=== PATIENT | male | born 1945 | race Caucasian/White ===

== ENCOUNTER 2018-05-18 08:24 | Inpatient (IN) ==
[2018-05-18 09:06] LABS: HEMATOCRIT 21.6 % (42.0-52.0); HEMOGLOBIN 6.9 g/dL (14.0-18.0); MCH 33.5 PG (27-31); MCHC 31.9 g/dL (33-37); MCV 104.9 FL (81-99); MPV 10.7 FL (7.4-10.4); RBC 2.06 XMIL (4.7-6.1); RDW 15.1 % (11.5-14.5); WBC 8.48 X1000 (4.8-10.8)
[2018-05-18] MEDS ORDERED: NS 500 ML ONE (10:08)
--- NOTE | 2018-05-18 11:32 | EKG Report ---
Test Performed on : 05/18/2018 11:29:58 AM Test Reason : SOB Blood Pressure : / mmHG Vent. Rate : 047 BPM Atrial Rate : 046 BPM P-R Int : 000 ms QRS Dur : 096 ms QT Int : 558 ms P-R-T Axes : 000 013 208 degrees QTc Int : 493 ms Junctional rhythm. Cannot rule out Anterior infarct , age undetermined Abnormal ECG When compared with ECG of 05-MAR-2018 11:47, (Unconfirmed) Junctional rhythm. has replaced Sinus rhythm. Non-specific change in ST segment in Lateral leads T wave inversion no longer evident in Anterior leads QT has shortened Confirmed by Ashwin DUNLAP, Tre Osuna ([id number]) on 05/20/2018 10:35:22 AM
[2018-05-18] MEDS ORDERED: LASIX IV ONE (11:41)
[2018-05-18] MEDS ORDERED: ZOFRAN IV PRN (11:45)
[2018-05-18] MEDS ORDERED: TYLENOL PO PRN (11:45)
--- NOTE | 2018-05-18 12:35 | HISTORY AND PHYSICAL ---
HISTORY OF PRESENT ILLNESS: This is a 72-year-old, who I think was followed by Dr. Jorge and is now seen by Dr. Rico. Recently he had chronic kidney disease and recently went on dialysis. He complains of shortness of breath that has been progressively getting worse over the last [address] Rico. He had significant anemia and so was sent over here to get some blood, but chest x-ray showed some pleural effusion, pulmonary venous hypertension, increased swelling in his legs and also some significant bradycardia, so plan to admit him also to try and figure out if he has blood-loss anemia as well. PAST MEDICAL HISTORY: 1. Hypertension. 2. Chronic kidney disease. 3. COPD. 4. Peripheral vascular disease. 5. Benign prostatic hypertrophy with lower tract obstruction. PAST SURGICAL HISTORY: 1. Knee replacement. 2. AAA repair. 3. Colon resection. 4. Ostomy and ostomy takedown. 5. Appendectomy. 6. Tonsillectomy. 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 History of previous tobacco use, although stopped about 15 years ago. Occasional use of alcohol. Denies any illicit drugs. FAMILY HISTORY: Mother of congestive heart failure. Father with prostate cancer. REVIEW OF SYSTEMS: General: He feels like he has increased swelling, increased his weight from fluid retention. Denies fever or chills. HEENT: He has not reported any hearing or visual changes. Neck: No neck pain. No adenopathy. Respiratory: Increased work of breathing. Increased dyspnea on exertion. Increased orthopnea. Increased pedal edema. Cardiovascular: No chest pain or tachy palpitation, but I have noticed some bradycardia that looks like sinus bradycardia on the monitor today and the rate getting down in the 40s with blood pressure up in the 160s to 180s systolic. GI and : Complains of constipation. No gross hematuria or dark melanotic stools. Urine: No complaints of frequent urination or dysuria or gross hematuria. Musculoskeletal/Neurologic: No focal complaints. Endocrinologic/Hematologic: No significant history. PHYSICAL EXAMINATION: VITAL SIGNS: Temperature 92.3, pulse 45. Respirations 24, blood pressure 195/75. HEENT: Pupils are equal and round. NECK: His CVP appears to be about 10 cm water pressure. I do not see distended neck veins. No cervical, supraclavicular, axillary adenopathy. LUNGS: Clear anterior lateral with rales in the bases. ABDOMEN: Soft, nondistended, nontender. Positive bowel sounds. EXTREMITIES: She got 3+ pedal edema, ankles to mid hook. No erythema. I do not see any rashes. Weight was 252 pounds. Height 6 feet 0 inches. LAB: White count 8480, hematocrit 21, hemoglobin 6.9, platelet count 274,000. ASSESSMENT AND PLAN: 1. Chronic kidney disease stage 5 and is on dialysis. He appears to have volume overload in the face of hypertension and appears to have some bradycardia. Plan to give him a dose of Lasix now. He had 2 units of packed red blood cells, just 0.5 unit is in at the present time. He was on Lasix 40 mg p.o. daily, but I will give him 120 mg IV now [address] Hernandez is involved. So will need dialysis to help with fluid reduction. 2. Anemia. His hematocrit is 21, hemoglobin 6.9, MCV is 104, so it is not macrocytic. However, we probably need to look and see if there is any sign of blood loss anemia. He does have anemia related to his chronic kidney disease. So, we will check his iron status, check iron studies, B12 and folate and we will check a reticulocyte count. We will check thyroid with T4 TSH B12 and folate. 3. History of chronic obstructive pulmonary disease. He does not seem to have any bronchospasm. He takes Dulera 100/5, two puffs twice a day. I think we can continue him on that. We can also put him on DuoNeb 4 times a day and then q.2 hours p.r.n. He has significant pleural effusion. We will watch that radiographically as well. 4. Hypertension. See if we can get his blood pressure down a little more. He is on hydralazine 25 mg t.i.d. We will go up to 50 mg t.i.d. on his hydralazine and his clonidine is at 0.1 b.i.d. we will go up to 0.2 mg b.i.d. 5. History of peripheral vascular disease. History of abdominal aortic aneurysm repair. 6. History of benign prostatic hypertrophy. Aware. 7. Looking back at his records looking for an echocardiogram or delineation of his left ventricular function, I see an echocardiogram on 09/14/2017. Technically difficult study. Mild concentric LVH. Estimated ejection fraction 55%. Grade 1 left ventricular diastolic dysfunction. Mild left atrial enlargement. Did not see any significant valvular dysfunction. He has moderate calcific aortic stenosis with mild to moderate aortic regurgitation. We will ask Cardiology to evaluate as well. Considering his bradycardia we will check cardiac enzymes, troponin and CPK and we will check a proBNP. cc: Tank Breen MD
[2018-05-18] MEDS: DUONEB (A & A) INH PRN (13:22)
[2018-05-18] MEDS ORDERED: ATIVAN IV ONE (13:51)
[2018-05-18] MEDS: PRILOSEC PO SCH ×2 (14:01→21:31)
[2018-05-18] MEDS: APRESOLINE PO SCH ×2 (14:01→18:15)
--- NOTE | 2018-05-18 14:22 | CARDIOLOGY CONSULTATION ---
DATE: 05/18/2017 REASON FOR CONSULTATION: Cardiology was consulted for bradycardia, pleural effusion. Patient has end-stage renal disease and is severely anemic. Hemoglobin of 6.9, and the patient has undergone 1 unit of blood transfusion and subsequently admitted to ICU. Patient does not complain of chest pain. He says he is short of breath. There are no palpitations. There is no syncope. He has chronic kidney disease undergoing dialysis. He was here for a transfusion. Nephrology has been consulted. From a cardiac standpoint, he has followed up in our office. He has moderate aortic stenosis and last stress test on 09/07/2017 revealed mainly fixed defect with partial reversibility. REVIEW OF SYSTEMS: A 14-point review of system was done. GI System: There is no nausea or vomiting. There is no history of hematemesis or melena. Central Nervous System: There is no focal weakness to suggest CVA, TIA. Genitourinary System: There is no dysuria. Respiratory System: Patient complains of shortness of breath. There is no history of cough, fever, or hemoptysis. PAST MEDICAL HISTORY: 1. End-stage renal disease on dialysis. 2. Hypertension. 3. Peripheral vascular disease. 4. COPD. 5. Benign prostatic hypertrophy. 6. History of moderate aortic stenosis by echocardiogram. 7. Last Cardiolite stress test on 09/07/2017 revealed a moderate severity basal inferior basal lateral fixed defect with partial reversibility. Ejection fraction of 58%. 8. History of megaloblastic anemia. 9. Nonrheumatic moderate aortic stenosis with a mean gradient of 20 mmHg. Aortic valve area of 1.3 square cm. CURRENT MEDICATIONS: 1. Norvasc 5 mg p.o. twice daily has been added during this hospitalization. 2. He is on inhalers. 3. He was on hydralazine 25 mg 3 times a day which has been increased to 50 mg t.i.d. 4. He is on omeprazole. ALLERGIES: He is allergic to meperidine. PHYSICAL EXAMINATION: Vital Signs: Blood pressure was 200/77. Neck: Jugular venous pressure could not be assessed. Heart: First and second heart sounds were heard. There was faint systolic murmur. Ejection systolic murmur. Respiratory System: Bibasilar scattered inspiratory crepitations. Abdomen: Obese, soft, nontender. There was no guarding or rigidity. Bowel sounds were heard. Extremities: Examination of his extremities revealed pedal edema. LABORATORY EXAMINATION: Chemistry is pending, however, his CBC revealed a hemoglobin of 6.9, hematocrit 21, platelet count of 274,000. Electrocardiogram revealed sinus bradycardia. ASSESSMENT AND PLAN: 1. Mr. Milton Delgado is a 72-year-old, gentleman, with a history of moderate aortic stenosis, hypertension, end-stage renal disease on dialysis. He was undergoing blood transfusion, and he became more short of breath, was given 120 mg Lasix and subsequently admitted. His shortness of breath is multifactorial probably related to his severe anemia, and he is going to receive another unit of blood transfusion, and he received 120 mg of Lasix. Nephrology has been consulted. 2. For moderate aortic stenosis, we will get an echocardiogram to reassess cardiac and valvular function. 3. As far as bradycardia is concerned, he was on clonidine. Currently, he is on Norvasc which has been started as a new medication and hydralazine has been increased. We will adjust medications accordingly. Thank you for the consult. We will follow hospital course. cc: Gary Castano MD
[2018-05-18 14:39] LABS: URINE SOURCE CATH
[2018-05-18 14:43] LABS: BILIRUBIN URINE NEGATIVE (NEGATIVE); BLOOD URINE MODERATE (NEGATIVE); COLOR YELLOW; GLUCOSE URINE TRACE mg/dL (NEGATIVE); KETONE URINE NEGATIVE (NEGATIVE); LEUKOCYTES URINE NEGATIVE (NEGATIVE); NITRITE URINE NEGATIVE (NEGATIVE); PH URINE 6.5; PROTEIN URINE 100 mg/dL (NEGATIVE); SP GRAVITY URINE 1.002; TURBIDITY URINE CLEAR (CLEAR); UROBILINOGEN URINE NORMAL (NORMAL)
[2018-05-18 14:44] LABS: UR EPITHELIAL CELLS <10 /HPF (<10); URINE BACTERIA NEGATIVE /HPF; URINE RBC TNTC /HPF (<10); URINE WBC <10 /HPF (<10)
[2018-05-18 15:16] LABS: BASO# 0.01 X1000 (0.0-0.2); BASO% 0.1 % (0.0-0.8); EOS% 3.5 % (0.0-10.0); HEMATOCRIT 24.2 % (42.0-52.0); HEMOGLOBIN 7.8 g/dL (14.0-18.0); IMM GRAN# 0.04 X1000 (0.0-0.04); IMM GRAN% 0.5 % (0.0-0.5); LYMPH# 1.06 X1000 (1.2-3.4); LYMPH% 12.2 % (20.5-51.1); MCH 32.4 PG (27-31); MCHC 32.2 g/dL (33-37); MCV 100.4 FL (81-99); MONO# 0.44 X1000 (0.11-0.59); MONO% 5.1 % (1.7-9.3); MPV 10.9 FL (7.4-10.4); NEUT# 6.84 X1000 (1.4-6.5); NEUT% 78.6 % (42.2-75.2); PLT 250 X1000 (130-400); RBC 2.41 XMIL (4.7-6.1); RDW 16.3 % (11.5-14.5); WBC 8.69 X1000 (4.8-10.8)
[2018-05-18 15:19] LABS: INR 0.97; PROTIME 13.7 Seconds (11.0-16.0)
[2018-05-18 15:21] LABS: PTT 41.4 Seconds (22.3-41.8)
[2018-05-18 15:28] LABS: ALB/GLOB RATIO 0.8; ALBUMIN 2.5 g/dL (3.5-5.0); CALCIUM 7.9 mg/dL (8.8-10.2); CREATININE 6.9 mg/dL (0.7-1.2); POTASSIUM 3.6 mmol/L (3.5-5.1); TOTAL BILIRUBIN 0.26 mg/dL (0.20-1.00); TOTAL PROTEIN 5.7 g/dL (6.3-8.3)
[2018-05-18] MEDS: DUONEB (A & A) INH SCH ×2 (15:53→20:30)
--- NOTE | 2018-05-18 17:34 | Diag Imaging Result Doc PS360 ---
EXAM: CHEST-PORTABLE 05/18/2018 HISTORY: sob TECHNIQUE: AP portable at 1725 COMMENT: There are bilateral pleural effusions more so on the right than the left. The inspiration is not as optimal as on the previous study of 05/17/2018. There may be slightly more pleural fluid on the right. Otherwise there has been no significant change. IMPRESSION: Bilateral pleural effusions. Cardiomegaly. Electronically signed by Pardeep Gaitan 05/18/2018 5:31 PM
--- NOTE | 2018-05-18 17:36 | GASTROENTEROLOGY CONSULTATION ---
DATE: 05/18/2018 HISTORY OF PRESENT ILLNESS: Mr. Delgado is a 72-year-old gentleman with a past medical history of hypertension, COPD, peripheral vascular disease, BPH, anemia of chronic disease and end-stage renal disease, on peritoneal dialysis, as well as a remote history of partial colon resection in the setting of unresectable colon polyp who was admitted today to the ICU after having a blood transfusion with chief complaint of cough and shortness of breath. He reports a long history of anemia, requiring a blood transfusion in September 2017, and progressive shortness of breath over the last several weeks. He denies any GI complaints, including dysphagia, acid reflux, abdominal pain, diarrhea, constipation, rectal bleeding, or black stools. His last colonoscopy was done by Dr. Alberts. It appears that his colonoscopy was done over 10 years ago, given that there are no records in our system available in regard to his procedures. He denies any blood thinner use, including aspirin. He does say that he takes occasional ibuprofen for pain. He does not recall ever having an upper endoscopy. PAST MEDICAL HISTORY: 1. Hypertension. 2. COPD. 3. Peripheral vascular disease. 4. BPH. 5. Anemia of chronic disease. 6. End-stage renal disease. 7. History of colon resection for colon polyp. PAST SURGICAL HISTORY: 1. Knee replacements. 2. Abdominal aortic aneurysm repair. 3. Appendectomy. 4. Tonsillectomy. 5. Colon resection. 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 He has a history of remote tobacco abuse. Admits to occasional alcohol. Denies any illicit drug use. FAMILY HISTORY: Mother of congestive heart failure, father with prostate cancer. REVIEW OF SYSTEMS: General: He reports fatigue and lethargy. Denies fever or chills. HEENT: Denies any visual changes or nasal discharge. Neck: No neck pain or lymphadenopathy. Respiratory: Reports cough that is slightly improving. Increased work of breathing and shortness of breath, particularly on exertion. Cardiovascular: Denies chest pain or palpitations. Abdomen: Denies any abdominal pain, swelling, diarrhea, constipation, or rectal bleeding. : No hematuria. Hematology: Denies easy bruising. Skin: Denies rashes or wounds. PHYSICAL EXAMINATION: Vital Signs: Temperature 98.3, pulse 45, respirations 24 , blood pressure 195/75. GEN: In respiratory distress; uncomfortable; and lethargic. HEENT: Pupils equal and reactive to light. Extraocular motor intact. Moist mucous membranes. Neck: No lymphadenopathy. Lungs: Clear to auscultation bilaterally. No audible wheezing or rhonchi. Abdomen: Peritoneal dialysis catheter noted. Obese, soft , nontender, nondistended. Normoactive bowel sounds. No rebound or guarding. Extremities: Has 1+ pedal edema. No cyanosis. LABS: Comprehensive metabolic panel is pending. White count is 8.4, hemoglobin 6.9 (corrected to 7.8 after blood transfusion), platelets 274,000, MCV 104. Prior labs in April 2018 showed a ferritin of 769, iron of 55, iron saturation of 47, TIBC of 118. In September 2017, he had a folate of 9.2 and a vitamin B12 of 1736. ASSESSMENT/PLAN: Mr. Milton Delgado is a 72-year-old male with a history that is significant for end-stage renal disease, on peritoneal dialysis, anemia of chronic disease, as well as remote history of partial colonic resection, who presents with acute respiratory distress in the setting of pulmonary vascular congestion as well as profound anemia. He denies any GI complaints suggestive of GI etiology of blood loss. He has not seen any blood in his stool. His iron studies from April are consistent with anemia of chronic disease. It is unclear whether he has been receiving Epogen or iron for his anemia at this point. It appears that he is overdue for a surveillance colonoscopy; however, given his current respiratory status, I would like to hold off on any invasive procedures until he improves from a cardiopulmonary standpoint. 1. Anemia: Recommend transfusion. Goal of hemoglobin of 7 to 8 and trending post-transfusion hemoglobin daily. Avoid any anticoagulants or antiplatelet agents if possible 2. Shortness of breath: Suspect this will improve after transfusion and diuresis with Lasix. Cardiology is following as well to assess whether patient's symptoms are cardiac in origin. 3. Chronic obstructive pulmonary disease which is currently being followed by primary team. 4. History of colon polyps: Will determine timing of colonoscopy inpatient versus outpatient procedure pending clinical course. Appreciate this consult. Please call with any questions. Thirty-five minutes was dedicated to this encounter. [facility]
[2018-05-18] MEDS ORDERED: TAZIDIME 2 GM in NS 100 ML IV ONE (18:58)
[2018-05-18] MEDS ORDERED: MISC. PHARMACY COMMUNICATION SCH (19:15)
[2018-05-18] MEDS: PULMICORT INH SCH (19:34)
[2018-05-18] MEDS ORDERED: VANCOMYCIN 2 GM in NS 500 ML IV ONE (20:00)
[2018-05-18] MEDS: LASIX IV SCH (20:32)
[2018-05-18] MEDS: NORVASC PO SCH (21:31)
[2018-05-18] MEDS: NORCO-5 PO PRN (21:31)
[2018-05-18] MEDS ORDERED: XYLOCAINE 1% ONE (21:51)
[2018-05-18] MEDS ORDERED: DECADRON IV ONE (22:33)
[2018-05-18 23:16] LABS: AMYLASE BODY FLUID 34 U/L; GLUCOSE BODY FLUID 149 mg/dL; LDH BODY FLUID 139 U/L; TOTAL PROT BODY FLUID 2.5 g/dL
[2018-05-18 23:21] LABS: BODY FLUID SOURCE PLEURAL FLUID
--- NOTE | 2018-05-18 23:44 | ECHO REPORT ---
ORDER DATE: 05/18/2018 MEASUREMENTS: Septal thickness 1.2, aortic root 3.2, left atrium 3.8. SUMMARY: 1. Fair quality study. 2. Fibrocalcific changes of trileaflet aortic valve demonstrated, with reduced aortic valve leaflet mobility demonstrated. Peak gradient across the aortic valve is 25 mmHg with a mean gradient of 12 mmHg. The calculated aortic valve area by Doppler is 1.5 cm2, suggesting mild to moderate aortic stenosis. There is mild to moderate aortic regurgitation. Mitral, tricuspid, and pulmonic valves are without evidence of structural abnormality, with mild mitral regurgitation, mild tricuspid regurgitation, and trace pulmonic insufficiency. The estimated systolic PA pressure by Doppler is 40 mmHg. The aortic root is normal in size. 3. Normal left ventricular chamber size with mild to moderate concentric left hypertrophy is demonstrated. Estimated left ventricular ejection fraction approximately 45%. No focal wall motion abnormalities evident. Doppler suggests grade 1 left ventricular diastolic dysfunction. Left atrium is mildly enlarged. Right atrium and right ventricle are of normal size with grossly preserved right ventricular systolic function. 4. No pericardial effusion. 5. Appearance of the inferior vena cava suggests normal central venous pressure. CONCLUSIONS: 1. Mild to moderate calcific aortic stenosis with mild to moderate aortic regurgitation. 2. Mild mitral regurgitation. 3. Mild tricuspid regurgitation with mild pulmonary hypertension by Doppler. 4. Mild to moderate concentric left ventricular hypertrophy with estimated left ventricular ejection fraction approximately 45%. 5. Grade 1 left ventricular diastolic dysfunction. 6. Mild left atrial enlargement. cc: MD Nubia Blair CRNP
[2018-05-18 23:45] LABS: SPECIMEN PLEURAL FLUID; WBC BF 219 /cumm
[2018-05-18 23:52] LABS: MONOS 54 %; POLYS 46 %
[2018-05-19] MEDS: DUONEB (A & A) INH SCH ×4 (03:38→19:15)
[2018-05-19] MEDS: DUONEB (A & A) INH PRN (05:40)
[2018-05-19 06:04] LABS: INR 0.96; PROTIME 13.6 Seconds (11.0-16.0)
[2018-05-19 06:05] LABS: BASO# 0.01 X1000 (0.0-0.2); BASO% 0.1 % (0.0-0.8); EOS# 0.01 X1000 (0.0-0.7); EOS% 0.1 % (0.0-10.0); HEMATOCRIT 29.4 % (42.0-52.0); HEMOGLOBIN 9.6 g/dL (14.0-18.0); IMM GRAN# 0.05 X1000 (0.0-0.04); IMM GRAN% 0.4 % (0.0-0.5); LYMPH# 0.35 X1000 (1.2-3.4); LYMPH% 3.1 % (20.5-51.1); MCH 31.4 PG (27-31); MCHC 32.7 g/dL (33-37); MCV 96.1 FL (81-99); MONO# 0.09 X1000 (0.11-0.59); MONO% 0.8 % (1.7-9.3); MPV 10.9 FL (7.4-10.4); NEUT# 10.87 X1000 (1.4-6.5); NEUT% 95.5 % (42.2-75.2); PLT 292 X1000 (130-400); RBC 3.06 XMIL (4.7-6.1); RDW 18.8 % (11.5-14.5); WBC 11.38 X1000 (4.8-10.8)
[2018-05-19 06:06] LABS: PTT 38.7 Seconds (22.3-41.8)
--- NOTE | 2018-05-19 06:33 | Diag Imaging Result Doc PS360 ---
CHEST-PORTABLE - 05/18/2018 INDICATION: md request COMPARISON: 05/18/2018 FINDINGS: There has been decrease in the right basilar pleural effusion. Stable patchy atelectasis in the lung bases. No new or focal infiltrates. Stable cardiomegaly and pulmonary vascular congestion. IMPRESSION: Decrease in the right basilar pleural effusion. Electronically signed by John Lawson 05/19/2018 6:31 AM
--- NOTE | 2018-05-19 06:51 | OPERATIVE NOTE ---
PROCEDURE DATE: 05/18/2018 PROCEDURE PERFORMED: Thoracentesis from the right hemithorax. CLINICAL INDICATIONS: Large right-sided pleural effusion with dyspnea at rest. DESCRIPTION OF PROCEDURE: After informed consent was obtained and the risk of infection, bleeding and pneumothorax were discussed, the patient was placed with his legs dangling over the bed and propped on the bedside table with the assistance of the nursing staff. The right hemithorax was percussed and auscultated. Three rib spaces below the initial dullness of percussion, a niyah was made with my finger nail. The site was cleaned with ChloraPrep and draped in the usual sterile fashion. Local anesthesia was achieved with 1% lidocaine, and pleural fluid was identified. A plastic catheter was introduced into the right hemithorax, and 1500 mL of clear yellow fluid were aspirated without difficulty. Pleural fluid will be sent for chemistries, cultures, and cytology. Postprocedure chest x-ray reveals slight decrease in pleural effusion on the right side. The patient tolerated the procedure without difficulty. cc: Vinicius Bah MD [facility]
[2018-05-19 07:02] LABS: ALB/GLOB RATIO 0.6; ALBUMIN 2.5 g/dL (3.5-5.0); CALCIUM 8.3 mg/dL (8.8-10.2); CREATININE 6.5 mg/dL (0.7-1.2); MAGNESIUM 2.1 mg/dL (1.5-2.7); POTASSIUM 3.9 mmol/L (3.5-5.1); TOTAL BILIRUBIN 0.36 mg/dL (0.20-1.00); TOTAL PROTEIN 6.5 g/dL (6.3-8.3)
--- NOTE | 2018-05-19 07:14 | PULMONOLOGY CONSULTATION ---
DATE: 05/18/2018 REQUESTING PHYSICIAN: Dr. Quintin Hernandez. REASON FOR CONSULTATION: Shortness of breath and pleural effusions. HISTORY OF PRESENT ILLNESS: Milton Delgado is a 72-year-old white male who was recently of referred to my clinic in April for persistent and intractable cough. After his history was obtained, concern for swallowing difficulty/possible esophageal dysfunction was entertained and patient was scheduled for a barium swallow and follow up in my clinic. The patient reports he has had some difficulty with weakness and being unsteady and he fail approximately 10 days ago and cracked 3 ribs. He has had increased shortness of breath and has had difficulty with orthostasis. Dr. Hernandez has adjusted his dry weight. The patient was seen by Dr. Rico with increasing shortness of breath and was found to be significantly anemic. The patient was admitted to the hospital for additional evaluation and treatment. The patient was significantly short of breath and was admitted to the ICU. Initial temperature was 92.3 degrees and he was mildly bradycardic. He has received blood. He remains hyperthermic but with gentle rewarming his temperature has increased to 93.6 degrees. He is having significant shortness of breath at rest. PAST MEDICAL HISTORY: 1. Persistent intractable cough as per above. Pulmonary function studies performed in October revealed mild restriction but no significant obstruction. He did have significant reduction in diffusion capacity. 2. End-stage renal disease, on peritoneal dialysis with prior episode of methicillin sensitive Staph aureus. Spontaneous bacterial peritonitis. 3. Peripheral vascular disease. 4. BPH. 5. Status post AAA repair. 6. Status post colon resection with ostomy placement and takedown. 7. Status post appendectomy. 8. Status post knee replacement. SOCIAL HISTORY: Prior tobacco use. Occasional alcohol use. 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 FAMILY HISTORY: Notable for prostate cancer and congestive heart failure. REVIEW OF SYSTEMS: Notable for generalized weakness, the feeling of being hot despite being hypothermic, shortness of breath, generalized weakness. PHYSICAL EXAMINATION: General: Reveals a well-developed, well-nourished, white male who is significantly breathless. He is also complaining about the Polk catheter. Vital signs: Blood pressure 149/66, heart rate 55, respiratory rate 20, oxygen saturation 97% on 4 L per nasal cannula. Temperature 93.6 degrees. HEENT: Pupils are equal and reactive. Oropharynx is clear. Neck: Supple. Chest: Reveals diminished breath sounds right greater than left base. Cardiac: Decreased rate. Regular rhythm. Abdomen: Soft and obese. Extremities: Reveal 2+ peripheral edema. LABORATORIES: White blood count 8.69, hemoglobin 7.8, platelet count 250,000. Sodium 143, potassium 3.6, chloride 98, bicarbonate 30, BUN 65, creatinine 6.9, proBNP 13913 , albumin 2.5, lactate 0.5, TSH 3.66. Free T4 ordered. Cortisol 10.5. Chest x-ray reveals cardiomegaly and a large effusion right greater than left side. IMPRESSION: A 72 year old with end-stage renal disease who presents with significant hypothermia, bilateral pleural effusions, dyspnea at rest, generalized weakness, bradycardia. Etiology for the hypothermia is not clear. He has not been exposed to the elements and has been hypothermic in this hospital all day long. Despite being hypothermic, he feels that he is hot. Etiology for his hypothermia could be related to infection, drugs, or undiagnosed neurologic event. He has had a trauma with rib fractures. He is anemic and will need thoracentesis both for a diagnostic and therapeutic process to make sure he does not have an empyema and to ensure that he has does not have a hemothorax. I will give him a dose of dexamethasone because his Cortisol is relatively low given his severe hypothermia and the Cortrosyn Stim should be performed. I will allow the hospitalist to perform this. However, it would seem unlikely that he would be severely adrenal insufficient with his current hypertension. If he does not sock turner to be septic, then it could be that his hypothermia is due to either his clonidine or his hydralazine. I will leave this for Dr. Hernandez to review. RECOMMENDATIONS: 1. Urgent thoracentesis for diagnostic and therapeutic indications given his hypothermia, severe dyspnea at rest and recent chest trauma with rib fractures. 2. Single dose of dexamethasone as outlined above. 3. Continue rewarming as tolerated. 4. Broad-spectrum antibiotics pending results of blood cultures and thoracentesis evaluation. 5. Evaluation for hypothermia as per above. 6. Continue ICU monitor for dyspnea and bradycardia cc: Vinicius Bah MD [facility]
[2018-05-19 07:19] LABS: RETIC% 1.75 % (0.8-2.1); RETIC-HE 30.1 PG (28.2-36.6)
[2018-05-19] MEDS: LASIX IV SCH ×2 (07:31→18:20)
[2018-05-19 07:35] LABS: IRON SATURATION 71 %; TIBC 178 ug/dL; TOTAL IRON 127 ug/dL (53-167); UNBOUND IRON 51 ug/dL (112-346)
--- NOTE | 2018-05-19 07:47 | Diag Imaging Result Doc PS360 ---
CHEST-PORTABLE - 05/19/2018 INDICATION: abnormal exam COMPARISON: 05/18/2018 FINDINGS: Stable bibasilar pleural effusions. Stable cardiomegaly and pulmonary vascular congestion. No infiltrates or edema. IMPRESSION: Small pleural effusions. No significant change from prior. Electronically signed by John Lawson 05/19/2018 7:44 AM
[2018-05-19 08:05] LABS: PHOSPHORUS 6.7 mg/dL (2.7-4.5)
[2018-05-19 08:11] LABS: FREE T4 0.98 ng/dL (0.93-1.70)
--- NOTE | 2018-05-19 08:13 | EKG Report ---
Test Performed on : 05/19/2018 07:54:03 AM Test Reason : bradycardia Blood Pressure : / mmHG Vent. Rate : 070 BPM Atrial Rate : 070 BPM P-R Int : 166 ms QRS Dur : 088 ms QT Int : 484 ms P-R-T Axes : 051 023 124 degrees QTc Int : 522 ms Normal sinus rhythm. Nonspecific ST and T wave abnormality Abnormal ECG When compared with ECG of 18-MAY-2018 11:29, (Unconfirmed) Sinus rhythm. has replaced Junctional rhythm. Vent. rate has increased BY 23 BPM Confirmed by Ashwin DUNLAP, Tre Osuna ([id number]) on 05/20/2018 10:51:26 AM
[2018-05-19] MEDS: NORCO-5 PO PRN ×3 (08:20→20:42)
[2018-05-19] MEDS: NORVASC PO SCH ×2 (08:20→20:42)
[2018-05-19] MEDS: APRESOLINE PO SCH ×3 (08:22→16:10)
[2018-05-19] MEDS: PRILOSEC PO SCH ×2 (08:22→20:42)
[2018-05-19] MEDS: PULMICORT INH SCH ×2 (09:23→19:15)
[2018-05-19 09:48] LABS: BODY FLUID SOURCE PERI DIAL FLUID
[2018-05-19 09:49] LABS: WBC BF 8 /cumm
--- NOTE | 2018-05-19 16:31 | PROGRESS NOTE ---
DATE: 05/19/2018 SUBJECTIVE: Mr. Delgado was admitted on 05/18/2018. Patient of Dr. Rico. Followed by Dr. Jorge. Before that, had seen Dr. Rico. He has chronic kidney disease. Recently went on dialysis. He is complaining shortness of breath. It has been progressively getting worse last couple weeks. Saw Dr. Rico. Significant anemia. Sent here to get some blood but chest x-ray shows some pleural effusion, pulmonary venous hypertension, increased swelling in his legs, some recent significant bradycardia so was admitted. PAST MEDICAL HISTORY: Again, hypertension, chronic kidney disease, COPD, peripheral vascular disease, benign prostatic hypertrophy. PAST SURGICAL HISTORY: Knee replacement, AAA repair, colon resection, ostomy and ostomy takedown, appendectomy, and tonsillectomy. So, admitted with chronic kidney disease. It looks like some fluid overload with anemia. He feels much better today. I would like to move to the floor. OBJECTIVE: Vital Signs: His temperature was 98.4 degrees, pulse 75, respirations 20, blood pressure 148/61. HEENT: Pupils are equal and round. Lungs: Clear in all lung cabrera. Cardiovascular: Regular rate without murmur or S3. Urine output was almost 6 L. GI has seen. Has significant end-stage renal disease, peritoneal dialysis, anemia of chronic disease as well as remote history of partial colonic resection and has pulmonary vascular congestion, profound anemia. Denies any gastrointestinal complaints suggestive of gastrointestinal etiology of blood loss. Not seen any blood loss in his stool. His iron studies from April consistent with anemia chronic disease. Unclear whether he has been receiving Epogen or iron for this anemia. The goal of hemoglobin is 7 to 8 trending post transfusion hemoglobin daily. Avoid any anticoagulants or antiplatelet agents if possible. Suspect shortness of breath and little volume overload hopefully improve after transfusion and diuresis. Pulmonary has seen. Considering thoracentesis for diagnostic and therapeutic indications given his hypothermia, severe dyspnea at rest, recent chest trauma with rib fractures. Give him single dose of dexamethasone. Continue broad-spectrum antibiotics. Evaluation for hypothermia. Dr. Bah did a thoracentesis for right hemothorax, large right-sided pleural effusion, and he drained off 1500 mL of clear yellow fluid, aspirated without difficulty. This was sent for chemistries and studies. Chest x-ray, small pleural effusion. No significant change from prior. This was done at 6 o'clock and before the paracentesis. Check another chest x-ray in the morning. Check electrolytes. I think he can go to the floor. cc: Tank Breen MD
--- NOTE | 2018-05-19 16:35 | GASTROENTEROLOGY PROGRESS NOTE ---
DATE: 05/19/2018 SUBJECTIVE: Yesterday, the patient underwent right-sided thoracentesis with 1500 mL removed. He also received one unit of packed red blood cells. This morning, he is more awake and alert and pleasant. Reports improvement in shortness of breath. His , at the bedside , reports patient having a colonoscopy over 15 years ago when he had his surgery for an unresectable polyp. He denies any abdominal pain, rectal bleeding, nausea, vomiting, or reflux. OBJECTIVE: Vital signs: Temperature 97.8, pulse 82, respiratory rate 22, blood pressure 147/71 and O2 saturation 96% on room air. His last hemoglobin drawn in the evening was 9.6 from 7.8. Platelets are normal. Iron studies from yesterday show a ferritin of 957, iron 127, TIBC 178, iron saturation 71, and vitamin B12 of 1910 with a folate of 18.4, and INR 0.96. Chest x-ray showed bilateral small pleural effusions this morning. CURRENT MEDICATIONS: DuoNeb, amlodipine, budesonide, dexamethasone, furosemide , hydralazine, Vicodin, lorazepam, omeprazole 40 mg once daily, Tazidime, and vancomycin. PHYSICAL EXAMINATION: General: The patient is pleasant and conversant. He is well-nourished and well-developed in no acute distress. HEENT: Extraocular motor intact. Mucous membranes are moist. Neck: No obvious JVD. No lymphadenopathy. Cardiac: Regular rate and rhythm. No murmurs. Pulmonary: Bilateral bibasilar crackles. Otherwise clear. Abdomen: Peritoneal dialysis catheter noted. Obese. Soft and nontender. Nondistended. Normoactive bowel sounds. No rebound or guarding. No obvious ascites. Extremities: One plus lower extremity edema. No cyanosis or clubbing. Neurological: Nonfocal. ASSESSMENT AND PLAN: Mr. Milton Delgado is a 72-year-old male with a history of end stage renal disease on peritoneal dialysis, anemia of chronic disease and remote history of partial resection for an unresectable colonic polyp over 15 years ago. He presented with acute on chronic anemia and respiratory distress in the setting of pulmonary vascular congestion , pleural effusion and profound anemia. His respiratory status has improved significantly since his thoracentesis and receiving Lasix as well as blood transfusions. After discussion with the patient and family at bedside, it appears that the patient has not been on any Epogen for his anemia of chronic disease. His iron studies from April as well as currently are consistent with anemia of chronic disease. It does not point to iron deficiency as the etiology, and the patient denies any overt GI bleeding. He is, indeed, overdue for surveillance colonoscopy which can be postponed as an outpatient given his current clinical status. # Anemia of chronic disease: We will continue to trend his hemoglobin. Currently, his hemoglobin is at goal. Should his hemoglobin drop below 8, I would recommend a repeat transfusion with one unit of packed red blood cells. I would continue to hold anticoagulants and antiplatelet agents and recommend TEDs and SCDs for DVT prophylaxis. Consider initiating Epogen for his anemia of chronic disease. Will defer to nephrology. #Acute respiratory distress. Pulmonary symptoms have improved with Lasix and thoracentesis. Nephrology and pulmonary are following to manage his fluid status. #ESRD: Continue peritoneal dialysis as per Renal #History of colonic polyps. Will defer colonoscopy to outpatient unless the patient develops overt bleeding or downtrending hemoglobin. We will continue to follow the patient while he is in house. Please call with any questions or concerns. [facility] MED[facility] CENTERAzeb
[2018-05-20] MEDS: NORCO-5 PO PRN ×3 (03:25→20:02)
--- NOTE | 2018-05-20 03:26 | NEPHROLOGY PROGRESS NOTE ---
DATE: 05/19/2018 SUBJECTIVE: He is feeling much better today. Shortness of breath is improved. He remains weak, but has not been out of bed. No nausea or vomiting. OBJECTIVE: Vital Signs: Blood pressure 167/90, heart rate 69, respiration 18, afebrile. General: No acute distress. Skin: Warm and dry. Heent: Conjunctivae are pink. Pupils are equal. Neck: Veins are not distended. Heart: Regular. No gallops. Lungs: Equal. No crackles or wheezes. Abdomen: Soft, distended, nontender. Bowel sounds present. Extremities: No edema, clubbing or cyanosis. IMPRESSION: Chronic kidney disease 5D. We will return to his normal daily peritoneal dialysis prescription. Electrolytes and acid-base are in target. Anemia is significantly improved with transfusion. Iron stores do not necessitate more intravenous iron. Bradycardia is resolved. Hypothermia has resolved. cc: Quintin Hernandez MD
[2018-05-20] MEDS: DUONEB (A & A) INH SCH ×4 (03:35→20:18)
[2018-05-20] MEDS: LASIX IV SCH ×2 (06:02→20:03)
[2018-05-20] MEDS: NORVASC PO SCH ×2 (08:19→22:29)
[2018-05-20] MEDS: APRESOLINE PO SCH ×3 (08:19→22:29)
--- NOTE | 2018-05-20 08:19 | Diag Imaging Result Doc PS360 ---
EXAM: CHEST-PORTABLE INDICATION: pleural effusion TECHNIQUE: 2 views COMPARISON: 05/19/2018 FINDINGS: Bilateral pleural effusions are again noted. The effusion on the right appears to have increased in size and now appears to be moderate to large in size. Pulmonary venous congestion is approximately stable. Cardiac silhouette is stable. IMPRESSION: Increase in size of the right pleural effusion. Essentially stable chest, otherwise. Electronically signed by Cedric Maravilla 05/20/2018 8:17 AM
[2018-05-20] MEDS: PRILOSEC PO SCH ×2 (08:20→22:29)
[2018-05-20 08:42] LABS: ALB/GLOB RATIO 0.6; ALBUMIN 2.1 g/dL (3.5-5.0); CALCIUM 7.5 mg/dL (8.8-10.2); CREATININE 7.1 mg/dL (0.7-1.2); POTASSIUM 3.5 mmol/L (3.5-5.1); TOTAL BILIRUBIN 0.22 mg/dL (0.20-1.00); TOTAL PROTEIN 5.9 g/dL (6.3-8.3)
[2018-05-20] MEDS: PULMICORT INH SCH ×2 (09:29→20:18)
[2018-05-20 09:44] LABS: BASO# 0.02 X1000 (0.0-0.2); BASO% 0.2 % (0.0-0.8); EOS# 0.09 X1000 (0.0-0.7); EOS% 0.8 % (0.0-10.0); HEMATOCRIT 27.2 % (42.0-52.0); HEMOGLOBIN 8.7 g/dL (14.0-18.0); IMM GRAN# 0.14 X1000 (0.0-0.04); IMM GRAN% 1.3 % (0.0-0.5); LYMPH# 1.22 X1000 (1.2-3.4); LYMPH% 11.5 % (20.5-51.1); MCH 31.2 PG (27-31); MCV 97.5 FL (81-99); MONO# 0.84 X1000 (0.11-0.59); MONO% 7.9 % (1.7-9.3); MPV 10.6 FL (7.4-10.4); NEUT# 8.28 X1000 (1.4-6.5); NEUT% 78.3 % (42.2-75.2); PLT 292 X1000 (130-400); RBC 2.79 XMIL (4.7-6.1); RDW 19.1 % (11.5-14.5); WBC 10.59 X1000 (4.8-10.8)
--- NOTE | 2018-05-20 10:22 | PROGRESS NOTE ---
DATE: 05/20/2018 This is a 72-year-old patient who states he did not get much sleep last night. He does not feel real good this morning. They were able to dialyze through peritoneal dialysis, quite a bit of fluid off yesterday. He is breathing comfortably. His right side, his rib is still very painful. He has a persistent cough. He had apparently pulmonary function tests done in October. Showed mild restriction. No significant obstruction. He had paracentesis done yesterday per Dr. Bah and 1500 mL of clear yellow fluid was aspirated without difficulty. PHYSICAL EXAMINATION: VITAL SIGNS: Temp 97.6 degrees, pulse 70, respirations 23, blood pressure 159/71. HEENT: Pupils are equal. NECK: No distended neck veins. LUNGS: Clear anterolateral with decreased breath sounds both bases. CARDIOVASCULAR: Regular rhythm and rate without murmur or S3. ABDOMEN: Soft. SKIN: Warm and dry. Urine output was 1400 mL. Chest x-ray done on 05/19/2018 showed increased size of right pleural effusion, bilateral pleural effusions noted. ASSESSMENT AND PLAN: 1. Chronic kidney disease stage 5D. Continue his normal daily peritoneal dialysis. Electrolytes acid base appear appropriate. Anemia significantly improved following transfusion. 2. Anemia of chronic disease, remote history of partial resection of an unresectable colon polyp over 15 years ago. He presented with acute on chronic anemia. 3. Pulmonary effusions, pulmonary vascular congestion, pleural effusions, effects of profound anemia. 4. Fractured ribs, tender. A lot of pain on the right side. He seems to be doing better. He came in with hypothermia and concern about possible sepsis. Pleural fluid was tapped. Results still await the gram stain of the pleural fluid. A few rare epithelial cells. No bacteria seen. No yeast seen. Pleural fluid: There is no growth on cultures as of yet. Occasional white blood cells. cc: Tank Breen MD
--- NOTE | 2018-05-20 10:43 | PROGRESS NOTE ---
DATE: 05/20/2018 SUBJECTIVE: Mr. Delgado does not feel real good today. They did get some fluid off on peritoneal dialysis yesterday. His rib is still hurting pretty bad. He did not get much sleep last night. He states he would feel better if he could get a little rest. OBJECTIVE: Temperature is 97.6, pulse 70, respirations 23, blood pressure 159/71. Pupils are equal and round. Lungs are clear in all lung cabrera. Cardiovascular: Regular rate and rhythm without murmur or S3. Abdomen is soft. Skin is warm and dry. Urine output is 1400 mL. DIAGNOSTIC DATA: Chest x-ray with increased size of right pleural effusion, essentially stable otherwise, that was from yesterday. He has bilateral pleural effusions, effusion on the right at this x-ray had increased. cc: Tank Breen MD
--- NOTE | 2018-05-20 15:42 | NEPHROLOGY PROGRESS NOTE ---
DATE: 05/20/2018 SUBJECTIVE: He is doing okay. He did not sleep well and he has not been out of bed. No shortness of breath, nausea, vomiting, or dizziness. OBJECTIVE: Vital Signs: Blood pressure 121/96, heart rate 73, respirations 16, and temperature 97.6. General: No acute distress. Skin: Warm and dry. HEENT: Conjunctivae are pink. Neck: Neck veins are not distended. Heart: Regular. No gallops. Lungs: Equal. No crackles. Abdomen: Soft and nontender. Bowel sounds are present. Extremities: No edema, clubbing, or cyanosis. IMPRESSION: 1. Chronic kidney disease 5D. He will continue his routine peritoneal dialysis prescription. 2. Anemia. He received 1 unit of packed red blood cells and his hemoglobin improved to 9.6. It was 8.7 today. Observe. He may need another transfusion. Iron storage levels were acceptable. B12 and folate were in target. Stool Hemoccult was positive. He is being followed by Gastroenterology. cc: Quintin Hernandez MD
[2018-05-20] MEDS ORDERED: VENTOLIN HFA INH PRN (17:46)
--- NOTE | 2018-05-20 20:44 | PROGRESS NOTE ---
DATE: 05/20/2018 SUBJECTIVE: Patient resting in bed he is feeling better. He denies any nausea , vomiting, vomiting blood, passing blood in the stools. OBJECTIVE: Temperature 97.6 degrees, pulse of 70, respiratory 16, blood pressure 143/59 saturating 94% on 4 L.General: Moderately nourished lying in bed in no acute distress. HEENT: Pale conjunctivae. No icterus. Neck: Supple. Abdomen: Obese, soft, nontender, nondistended. Extremities: No cyanosis, clubbing. Neuro: Alert, awake, oriented. LABS: His hemoglobin and hematocrit is 8.7, 27.2, white count of 10.9, platelet count of 292,000, sodium 140, potassium 3.5, chloride 98, bicarb 27, anion gap 15, BUN of 61, creatinine of 7.1, glucose 90, magnesium 2.0, total bilirubin is 0.22, AST 17, ALT 13, alkaline phos 92, total protein 5.9, albumin of 2.1. Stool for occult blood was positive. IMPRESSION AND PLAN: 1. Anemia, I will continue to watch her hemoglobin and hematocrit and transfuse as needed. This is likely secondary to anemia of chronic disease from chronic kidney disease and occult gastrointestinal bleeding. 2. Positive Hemoccult. We will schedule for EGD and colonoscopy likely as an outpatient once he recovers from acute illness. 3. Chronic kidney disease on peritoneal dialysis per Dr. Hernandez. 4. Pulmonary vascular congestion pleural effusion and pulmonary effusion status post thoracocentesis, this is being followed primary care team. 5. Fractured ribs on the right side. He is currently recovering. 6. Gastrointestinal prophylaxis with PPIs. Bowel regimen. Will start him on Rissa-Colace once daily. 7. Will start him on iron C and multivitamin for anemia. 8. The above plans with the patient and family, all questions answered.Please call us with any further questions. cc: MD Dr. Jacky Pryor
[2018-05-20] MEDS: ICAR-C PO SCH (22:29)
[2018-05-20] MEDS: PERICOLACE PO SCH (22:29)
[2018-05-20] MEDS: COREG PO SCH (22:29)
[2018-05-20] MEDS: REMERON PO SCH (22:29)
[2018-05-20] MEDS: KLONOPIN PO SCH (22:29)
[2018-05-20] MEDS: CATAPRES PO SCH (22:30)
[2018-05-20] MEDS: ATROVENT NEB INH SCH (23:41)
[2018-05-21] MEDS: DUONEB (A & A) INH SCH ×4 (03:36→22:38)
[2018-05-21] MEDS: NORCO-5 PO PRN ×3 (04:17→22:02)
[2018-05-21] MEDS: ATROVENT NEB INH SCH ×4 (05:02→23:13)
[2018-05-21] MEDS: PULMICORT INH SCH ×2 (08:01→22:38)
[2018-05-21] MEDS: BREO ELLIPTA 200/25 MCG INH INH SCH (08:01)
[2018-05-21] MEDS: LASIX IV SCH ×2 (10:35→22:02)
[2018-05-21] MEDS: NEPHRO-VITE PO SCH (10:35)
[2018-05-21] MEDS: COREG PO SCH ×2 (10:35→22:02)
[2018-05-21] MEDS: PRILOSEC PO SCH ×2 (10:35→22:02)
[2018-05-21] MEDS: ICAR-C PO SCH ×2 (10:36→22:01)
[2018-05-21] MEDS: NORVASC PO SCH ×2 (10:36→22:03)
[2018-05-21] MEDS: CENTRUM SILVER PO SCH (10:36)
[2018-05-21] MEDS: APRESOLINE PO SCH ×3 (10:36→22:02)
[2018-05-21] MEDS: CATAPRES PO SCH ×2 (10:36→22:02)
[2018-05-21] MEDS: SINGULAIR PO SCH (10:37)
[2018-05-21] MEDS: NEXIUM PO SCH (10:37)
[2018-05-21] MEDS: KLONOPIN PO SCH ×2 (10:37→22:01)
--- NOTE | 2018-05-21 10:45 | GASTROENTEROLOGY PROGRESS NOTE ---
DATE: 05/21/2018 SUBJECTIVE: Patient is resting in bed. The patient is feeling better. He complains of constipation. He has not had a good bowel movement for the last 5 days. OBJECTIVE: Vital signs: Temperature 97, pulse rate of 69, respiratory rate 18, blood pressure 147/53, saturating 98% on room air. General appearance: Obese, lying in bed, in no acute distress. HEENT: Pale conjunctivae. No icterus. Neck: Supple. Abdomen: Obese. Peritoneal dialysis catheter noted in the right side of the abdomen. Mild distention noted. No rebound or guarding. Extremities: No cyanosis, clubbing. Neurologic: Alert, awake, oriented x3. LABS: His blood glucose is 131. Pleural fluid did have white cells of 219 and 46% polymorphonuclear white cells. Stool for occult blood was positive on 05/19. IMPRESSION AND PLAN: 1. Anemia. Will continue to watch hemoglobin and hematocrit. Will start him on iron C b.i.d. and multivitamin 1 once daily. 2. Constipation. We will start him on MiraLAX twice daily and Dulcolax b.i.d. 3. Positive Hemoccult. He will need EGD and colonoscopy as an outpatient once he recovers from the acute illness. 4. Chronic kidney disease. On peritoneal dialysis per Dr. Hernandez. 5. Pulmonary vascular congestion. It is improving. 6. Fall causing fracture on the right side, right-sided ribs. He is recovering. 7. Gastrointestinal prophylaxis. PPIs. 8. Transfuse as needed. 9. Obesity. Patient was counseled to lose weight. 10. The above plan was discussed with the patient and all questions were answered. Please call us with any further questions. cc: MD Dr. Jacky Pryor
[2018-05-21] MEDS: MIRALAX PO SCH ×2 (10:50→22:03)
[2018-05-21] MEDS ORDERED: DULCOLAX PR PRN (14:29)
--- NOTE | 2018-05-21 14:51 | PROGRESS NOTE ---
DATE: 05/21/2018 SUBJECTIVE: Mr. Delgado is doing better, but he is constipated and can't seem to have a bowel movement. So, otherwise, he seems to be doing better on all fronts. He is still very tender in his ribs. OBJECTIVE: General: Today: He is awake, alert and oriented x 3. Vital Signs: Temp 97.0, pulse 67, respirations 18, blood pressure 147/53. HEENT: Pupils are equal and round. Lungs: Clear in all lung cabrera. Cardiovascular: Regular rhythm and rate without murmur or S3. Abdomen: Soft. Skin: Warm and dry. Genitourinary: Urine output 3900 mL. ASSESSMENT AND PLAN: 1. Anemia. Continue to watch hemoglobin and hematocrit. He is on iron C b.i.d., multivitamin. 2. Constipation. Started on MiraLAX and Dulcolax. I will give him some milk of magnesia and a Dulcolax suppository today. 3. Positive Hemoccult. Will need an EGD and colonoscopy as an outpatient once he recovers from acute illness. 4. Chronic kidney disease on peritoneal dialysis per Dr. Hernandez. 5. Pulmonary vascular congestion, improving. Volume overload improving. 6. Fall causing a fracture on the right side, right-sided ribs, and he is still in a good deal of pain and this will be slow recovery. 7. Continues gastrointestinal prophylaxis, on proton pump inhibitor. 8. Transfuse as needed. 9. Obesity. Continue to in house counsel and lose weight. 10. Chronic kidney disease stage 5D. Continue routine peritoneal dialysis. 11. Anemia. He received 1 unit of packed red blood cells. Hemoglobin improved to 9.6. It was 8.7, under Dr. Hernandez direction. 12. Review of his orders: I will add some milk of magnesia and Dulcolax q. day p.r.n.. cc: Tank Breen MD
[2018-05-21] MEDS: DULCOLAX PR SCH ×2 (15:59→22:03)
[2018-05-21] MEDS: MILK OF MAGNESIA PO SCH (16:00)
[2018-05-21] MEDS: LACTULOSE PO SCH ×2 (17:59→22:07)
[2018-05-21] MEDS: REMERON PO SCH (22:03)
[2018-05-21] MEDS: PERICOLACE PO SCH (22:03)
[2018-05-22] MEDS: DUONEB (A & A) INH SCH ×4 (05:11→20:42)
[2018-05-22] MEDS: ATROVENT NEB INH SCH ×4 (05:12→20:40)
--- NOTE | 2018-05-22 07:24 | Diag Imaging Result Doc PS360 ---
EXAM: CHEST-1 VIEW 05/22/2018 HISTORY: SOB TECHNIQUE: AP portable at 0606 COMMENT: There is a right pleural effusion which may be partially loculated and a smaller left pleural effusion. There is cardiomegaly and increased pulmonary vascularity. There is compressive atelectasis in the right lung particularly in the lower lobe. Compared to 05/19/2018 the right pleural effusion is larger. IMPRESSION: Worsened right pleural effusion. Electronically signed by Pardeep Gaitan 05/22/2018 7:21 AM
[2018-05-22] MEDS: PULMICORT INH SCH ×2 (07:44→20:42)
[2018-05-22] MEDS: BREO ELLIPTA 200/25 MCG INH INH SCH (07:44)
[2018-05-22] MEDS: SINGULAIR PO SCH (09:16)
[2018-05-22] MEDS: PRILOSEC PO SCH ×2 (09:17→21:16)
[2018-05-22] MEDS: ICAR-C PO SCH ×2 (09:17→21:16)
[2018-05-22] MEDS: CENTRUM SILVER PO SCH (09:18)
[2018-05-22] MEDS: LACTULOSE PO SCH ×2 (09:18→21:17)
[2018-05-22] MEDS: NEPHRO-VITE PO SCH (09:18)
[2018-05-22] MEDS: MIRALAX PO SCH ×2 (09:21→21:15)
[2018-05-22] MEDS: MILK OF MAGNESIA PO SCH (09:21)
[2018-05-22] MEDS: DULCOLAX PR SCH ×2 (09:22→21:17)
--- NOTE | 2018-05-22 09:53 | GASTROENTEROLOGY PROGRESS NOTE ---
DATE: 05/22/2018 SUBJECTIVE: Resting in bed. He is feeling better. He is likely getting discharged today. OBJECTIVE: Vital signs: Temperature 98.6 degrees, pulse rate 64, respiratory rate 15, blood pressure of 97/47, saturating 92% on room air. General Appearance: Obese, lying in bed, in no acute distress. HEENT: Pale conjunctivae. No icterus. Neck: Supple. Abdomen: Obese, soft, nontender, nondistended. Dialysis catheter in place. Extremities: No cyanosis or clubbing. Neurologic: Alert, awake, oriented. LABORATORIES: His glucose of 131 yesterday. Occult blood was positive x2 IMAGING: Chest x-ray done today showed a worsening right pleural effusion and a small left pleural effusion. IMPRESSION AND PLAN: 1. Anemia. Continue to watch hematocrit and transfuse as needed. He will continue Iron C b.i.d. and multivitamin. We discussed the possibility of doing EGD and colonoscopy. The patient is getting discharged today. We will perform EGD and colonoscopy as an outpatient. If he plans to stay in the hospital, then we can do inpatient EGD as well. 2. Positive Hemoccult on two occasions. We will perform EGD and colonoscopy as mentioned above. 3. Constipation. He having constipation he has done MiraLAX twice daily and Dulcolax twice daily. 4. Chronic kidney disease, on peritoneal dialysis per Dr. Hernandez. 5. Pulmonary venous congestion and pleural effusion, per the primary care team. 6. Recent fall causing injury to the right-sided ribs. He is currently recovering GI with PPIs. 7. Obesity. Continue to try to lose weight. 8. The patient will call our office to schedule an appointment one week after discharge. The above plans discussed with the patient and family and all questions answered. cc: MD Azam Pryor MD
[2018-05-22] MEDS: COREG PO SCH ×2 (10:39→21:16)
[2018-05-22] MEDS: CATAPRES PO SCH ×2 (10:41→21:16)
[2018-05-22] MEDS: APRESOLINE PO SCH ×3 (10:42→21:16)
[2018-05-22] MEDS: LASIX IV SCH ×2 (10:44→21:15)
[2018-05-22] MEDS: KLONOPIN PO SCH ×2 (10:45→21:16)
[2018-05-22] MEDS: NORVASC PO SCH (10:45)
--- NOTE | 2018-05-22 13:02 | NEPHROLOGY PROGRESS NOTE ---
DATE: 05/22/2018 SUBJECTIVE: Mr. Delgado is resting quietly in bed. Head of the bed is elevated. He states that he is feeling much better. States that he has been out of bed to go to the bathroom. OBJECTIVE: His most recent vital signs temperature 98.6 degrees, blood pressure 97/47, heart rate 59, respirations 18. He is on room air. Last recorded saturation is 99%. He has had 0 recorded in, he has had 2661 out with 200 mL void. The other 2.461 per dialysis. LABORATORIES: Sodium is 140, potassium 3.5, chloride 98, CO2 27, BUN 61, creatinine 7.1, glucose 92. Last recorded on the with a hemoglobin of 8.7. PHYSICAL EXAMINATION: General: This is a 72-year-old white male resting quietly in bed. Head of the bed is elevated. He is in no acute distress. Skin: Warm and dry. HEENT: Normocephalic, atraumatic. Conjunctiva is pale pink. ERIC. Mucous membranes dry. Neck: Supple. Trachea midline. No evidence of JVD. Cardiovascular: Regular rate and rhythm. He is without murmur or gallop. Lungs: Clear to auscultation bilaterally, equal excursion on O2 with his breathing treatment. Abdomen: Soft, nontender, positive bowel sounds. PD catheter remains intact. He has just been disconnected with residual PD fluid intact. Extremities: Have no edema. No clubbing or cyanosis. Neurological: Alert and oriented x3. ASSESSMENT AND PLAN: 1. Chronic kidney disease stage 5D. The patient has been receiving his routine prescription for peritoneal dialysis at night. He has been taken off this a.m. He tolerated this well. 2. Electrolytes and acid-base balance. These have been stable. 3. Anemia. The patient has received 2 units of packed red blood cells during his stay. He has also been given IV iron. It is noted that patient has positive Hemoccult. This is being followed by Gastroenterology and primary care. I would to thank you for allowing us to follow with this patient. Dictated by RASHMI Brandon for Quintin Hernandez MD Face to face encounter, data reviewed, discussed with Susie Cruz on 05/22/18. I agree with the above assessment and plan of care. cc: RASHMI Brandon MD [facility]
--- NOTE | 2018-05-22 17:44 | PROGRESS NOTE ---
DATE: 05/22/2018 SUBJECTIVE: Mr. Delgado says he does not feel very good today at all and still pretty weak and family concerned about him going home. Blood pressure has been running a little low so may need to back down on some of his medications. OBJECTIVE: Vital Signs: Blood pressure anywhere from 97 to 137 over 38 to 78. Lungs: Clear anterior lateral. drawing box tender in the right lower ribs anterior. Cardiovascular: Regular rhythm rate without murmur or S3. Abdomen: Soft. Skin: Warm and dry. Urine output was 3700 mL. ASSESSMENT AND PLAN: 1. Chronic kidney disease, stage 5. The patient has been receiving routine prescription for peritoneal dialysis and seems to be doing better. Volume status seems better. His electrolytes and acid-base balance have been stable. 2. Anemia. He has received 2 units of packed red blood cells during his stay and was given some IV iron. 3. Positive Hemoccult on 2 occasions. Plan to perform an EGD and colonoscopy and I think that is planned as an outpatient. 4. Constipation, which is improved. He is on MiraLAX and Dulcolax. 5. Pulmonary venous congestion and effusion which I think is improved. 6. Recent fall causing right-sided rib pain. He has had a right pleural effusion which is tapped. There is some reaccumulation radiographically. 7. Obesity. Encouraged to lose weight. 8. The patient feels weak and puny and we have had to hold some of his blood pressure medications today so maybe see if we can back down on some of his medications. I will start with stopping the Norvasc and just see how we do off of Norvasc. Continue physical therapy. Hopefully can go home in the morning. cc: Tank Breen MD
[2018-05-22] MEDS: NEXIUM PO SCH (18:31)
[2018-05-22] MEDS: PERICOLACE PO SCH (21:16)
[2018-05-22] MEDS: REMERON PO SCH (21:16)
[2018-05-22] MEDS: NORCO-5 PO PRN (21:25)
[2018-05-23] MEDS: ATROVENT NEB INH SCH ×3 (06:23→23:16)
[2018-05-23] MEDS: DUONEB (A & A) INH SCH ×4 (06:23→20:57)
[2018-05-23] MEDS: NORCO-5 PO PRN ×2 (07:43→23:51)
[2018-05-23] MEDS: BREO ELLIPTA 200/25 MCG INH INH SCH (07:52)
[2018-05-23] MEDS: PULMICORT INH SCH ×2 (07:52→20:57)
[2018-05-23] MEDS: KLONOPIN PO SCH ×2 (08:05→23:54)
[2018-05-23] MEDS: SINGULAIR PO SCH (08:06)
[2018-05-23] MEDS: ICAR-C PO SCH ×2 (08:06→23:54)
[2018-05-23] MEDS: CENTRUM SILVER PO SCH (08:06)
[2018-05-23] MEDS: PRILOSEC PO SCH ×2 (08:06→23:54)
[2018-05-23] MEDS: COREG PO SCH ×2 (08:07→23:55)
[2018-05-23 08:11] LABS: HEMATOCRIT 29.8 % (42.0-52.0); HEMOGLOBIN 9.4 g/dL (14.0-18.0); MCHC 31.5 g/dL (33-37); MCV 101.4 FL (81-99); MPV 11.2 FL (7.4-10.4); RBC 2.94 XMIL (4.7-6.1); RDW 18.3 % (11.5-14.5); WBC 13.23 X1000 (4.8-10.8)
[2018-05-23 08:27] LABS: ALBUMIN 2.3 g/dL (3.5-5.0); CALCIUM 8.5 mg/dL (8.8-10.2); CREATININE 7.3 mg/dL (0.7-1.2); PHOSPHORUS 6.5 mg/dL (2.7-4.5); POTASSIUM 3.7 mmol/L (3.5-5.1)
[2018-05-23] MEDS: APRESOLINE PO SCH (09:38)
[2018-05-23] MEDS: NEPHRO-VITE PO SCH (09:57)
--- NOTE | 2018-05-23 10:54 | Diag Imaging Result Doc PS360 ---
EXAM: CT THORAX W/O CONTRAST 05/23/2018 HISTORY: pleural effusion TECHNIQUE: This exam was performed using automated exposure control, adjustment of mA or kV according to patient size, and/or use of iterative reconstruction technique. COMMENT: The current examination is compared with the previous study of 02/11/2011. There are bilateral pleural effusions, slightly more so on the right than the left. This may be partially loculated. Neither effusion was present at the time the previous study. There is considerable compressive atelectasis of both lower lobes particularly the right lower lobe. There is some degree of hypodensity of the blood pool in the aorta which may be indicative of anemia. There is no evidence of significant adenopathy. There are extensive coronary calcifications. There is osteoporosis and has been previous kyphoplasty at T12. IMPRESSION: Bilateral pleural effusions with compressive atelectasis. The possibility of underlying lower lobe pneumonia on both sides, particularly the right lower lobe cannot be excluded. Electronically signed by Pardeep Gaitan 05/23/2018 10:52 AM
[2018-05-23] MEDS ORDERED: ZYVOX 600 MG/D5W 600 MG/300 ML IVPB IV ONE (11:53)
[2018-05-23] MEDS ORDERED: MAXIPIME 1 GM in NS 50 ML IV ONE (11:53)
--- NOTE | 2018-05-23 12:26 | GASTROENTEROLOGY PROGRESS NOTE ---
DATE: 05/23/2018 SUBJECTIVE: The patient has some mild shortness of breath as well as pleuritic chest pain. No chest pain. No abdominal pain, nausea, vomiting, fevers. Tolerating p.o. Bowel movements present without any rectal bleeding. OBJECTIVE: Vital Signs: Temperature 97.5 degrees, heart rate 94, respiratory rate 16, blood pressure 134/69, 96% on room air. General: Awake, alert, oriented, in no acute distress. HEENT: Anicteric. Moist mucous membranes. Extraocular motor intact. Neck: No JVD. No lymphadenopathy. Chest: Regular rate and rhythm. No murmurs, rubs, or gallops. Lungs: Decreased breath sounds on the right base. Otherwise coarse breath sounds. No wheezing or crackles. Abdomen: Obese. Peritoneal dialysis catheter noted. Soft, nontender. Normoactive bowel sounds. No rebound or guarding. Extremities: Lower extremities, no clubbing, cyanosis, edema. Neurologic: Nonfocal. LABS: White count of 13.2, hemoglobin 9.4, MCV of 101, platelets of 281,000. Sodium 141, potassium 3.7, chloride 96, bicarb 31, BUN of 56, creatinine of 7.3, glucose 94. ASSESSMENT AND PLAN: Mr. Delgado is a 72-year-old gentleman with end-stage renal disease, on peritoneal dialysis, history of anemia of chronic disease, who presented with hypoxic respiratory distress and acute on chronic anemia, found to have a large pleural effusion, status post diagnostic and therapeutic thoracentesis as well as blood transfusion. His Hemoccult have been positive x2, although patient is not currently having any overt bleeding. This is to be expected in a patient with acute illness in the ICU. The patient would require outpatient EGD and colonoscopy to evaluate for a luminal source of bleeding. Most likely his anemia is multifactorial in the setting of anemia of chronic disease and occult blood loss. Given his respiratory status and his acute illness, we recommend outpatient colonoscopy at this time, as well as EGD. This was communicated with patient who agrees with plan. 1. Acute on chronic anemia. Trend hemoglobin. Currently, hemoglobin is stable at 9.4 from 8.4. No transfusion requirement needed at this time. Continue PPI for GI prophylaxis p.o. once daily. 2. Constipation. The patient is currently having bowel movements. Continue bowel regimen. 3. End-stage renal disease, on peritoneal dialysis per Nephrology. 4. Pleural effusion. Followed by Pulmonary team. Status post thoracentesis. Currently saturating well on room air. 5. Obesity. We will continue to encourage patient to diet, exercise, weight loss. 6. Leukocytosis. White count of 13.2 today, which is new. This is of unclear etiology. Vital signs are stable. Recommend continuing to monitor for any infection. We will follow with you. Please call with any questions or concerns.
[2018-05-23] MEDS: LACTULOSE PO SCH ×3 (13:52→23:53)
[2018-05-23] MEDS: MIRALAX PO SCH ×2 (13:52→23:53)
[2018-05-23] MEDS: DULCOLAX PR SCH ×2 (13:54→23:59)
[2018-05-23] MEDS: MILK OF MAGNESIA PO SCH (13:55)
--- NOTE | 2018-05-23 19:19 | PROGRESS NOTE ---
DATE: 05/23/2018 SUBJECTIVE: The patient is resting comfortably in bed. He does complain of some weakness. He denies having any fever, chills or cough. OBJECTIVE: Vital Signs: Temperature 97.2, blood pressure 122/48, heart rate 57, respirations 20, O2 sats 96% on 2 L nasal cannula. Urine output 200 mL. General: This is an elderly male lying in bed in no acute distress. Heart: S1, S2 normal. Regular rate and rhythm. Lungs: Equal air entry bilaterally. Diminished breath sounds at the bases. Abdomen: Positive bowel sounds. Soft, nontender, nondistended. Extremities: No edema, no cyanosis. Neurologic: The patient is alert and oriented x 3. LABS: White blood cell count 13, hemoglobin 9.4, hematocrit 29, platelets 281,000. Sodium 141, potassium 3.7, chloride 96, CO2 31, BUN 56, creatinine 7.3, glucose 94, albumin 2.3. CT of the chest shows bilateral pleural effusions with atelectasis. The possibility of underlying lower lobe pneumonia cannot be excluded. ASSESSMENT AND PLAN: 1. Possible pneumonia. The patient's white blood cell count is elevated at 13,[address] of the chest indicates possible pneumonia in the lower lobe. We will check a procalcitonin level. We will also give the patient a dose of cefepime and Zyvox today. 2. Status post right thoracentesis secondary to a large right-sided pleural effusion. The patient continues to have a small pleural effusion on the right. We will continue to monitor this closely. The patient is on diuretic therapy. 3. End-stage renal disease. The patient is on peritoneal dialysis. Management as per the washer and crusher tender. 4. Hypertension. Stable. We will continue on Coreg. We will discontinue the hydralazine and clonidine at this time. 5. Constipation. Improved. Continue with scheduled laxative therapy as directed by GI. 6. Anxiety disorder. Continue on Klonopin. 7. COPD. Stable. Continue with bronchodilator therapy. 8. GERD. Continue on Prilosec. 9. Disposition. Will continue with physical therapy. The patient will be discharged home once medically stable. cc: Barbara Broussard MD
--- NOTE | 2018-05-23 19:51 | NEPHROLOGY PROGRESS NOTE ---
DATE: 05/23/2018 TIME SEEN: 0845 SUBJECTIVE: Mr. Delgado sitting up on the side of the bed. States that he is cold today but he is feeling well. He has been to the bathroom and has attempted to sit on the side of the bed to eat his meals. OBJECTIVE: His most recent vital signs temperature 97.3 degrees, blood pressure 122/43, heart rate 62, respirations 20, he is on room air. Last recorded saturation 95%, he has had 500 in, 1414 out per his PD. LABS: Sodium is 141, potassium 3.7, chloride 96, CO2 31, BUN 56, creatinine 7.3 , glucose is 94, patient has an anion gap of 14, his calcium is 8.5, phosphorus 6.5, albumin 2.3. White count 13.23, hemoglobin 9.4, hematocrit 29.8, platelet count is 281,000. PHYSICAL EXAM: General: This is a 72-year-old white male appears chronically ill though no acute distress. Skin is warm and dry. HEENT: Normocephalic, atraumatic. Conjunctiva is pale pink. He has ERIC. Mucous membranes are dry. Neck: Supple. Trachea midline. No evidence of JVD in the upright position. Cardiovascular: Regular rate and rhythm, he is without murmur or gallop. Lungs: Clear to auscultation bilateral, equal excursion though he does have a coarse breath sounds that clears with an occasional cough, he is on room air today. Abdomen : Soft, nontender. Positive bowel sounds. PD catheter remains intact without redness or drainage. He has just been disconnected from PD catheter for his cycler overnight with residual PD fluid intact. Extremities: Have trace pretibial edema. No clubbing or cyanosis. Neurological: Alert and oriented x3. ASSESSMENT AND PLAN: 1. Chronic kidney disease stage 5D. The patient has just been taken off his cycler during the night for his peritoneal dialysis treatment. He does have some residual fluid present, no indications for further intervention. 2. Electrolytes and acid-base balance. These are stable. 3. Anemia. This has been stable. 4. Pleural effusions. Chest x-ray is currently pending this a.m. to be followed by the primary care team. We may change his dialysis solution if needed tonight on his cycler. Like to thank you for allowing us to follow with this patient. Dictated by RASHMI Brandon for Quintin Hernandez MD Face to face encounter, data reviewed, discussed with Becki Cruz on 05/23/18. I agree with the above assessment and plan of care. cc: RASHMI Brandon MD [facility]
[2018-05-23] MEDS: LASIX PO SCH (23:54)
[2018-05-23] MEDS: PERICOLACE PO SCH (23:55)
--- NOTE | 2018-05-24 03:27 | PULMONOLOGY PROGRESS NOTE ---
DATE: 05/23/2018 SUBJECTIVE: The patient reports less shortness of breath. He reports generalized fatigue. OBJECTIVE: Vital Signs: Blood pressure 122/48, heart rate 57, respiratory rate 20, oxygen saturation 96% on room air. He has been essentially normothermic over the last 48 hours. HEENT: Pupils are equal and reactive. Oropharynx is clear. Neck: Supple. Chest: Reveals decreased breath sounds in both lung bases. Cardiac: S1-S2. Abdomen: Obese and soft. Extremities: Trace edema. LABORATORIES: CT scan of the thorax is reviewed. He has bilateral pleural effusions, with some compressive atelectasis. No definite pneumonias. White blood count 13.23, hemoglobin 9.4, platelet count 281,000. Sodium 141, potassium 3.7, chloride 96, bicarbonate 31, BUN 56, creatinine 7.3. From his pleural fluid, pH was 8.0, white blood count 219. Glucose 149, protein 2.5. Cultures from pleural fluid and peritoneal fluid revealed no growth. IMPRESSION: A 72 year old with rib fractures, bilateral pleural effusions, dyspnea, end-stage renal disease, mild leukocytosis, who presented with hypothermia. His hypothermia has resolved. The pleural effusions appear to be transudative in character. RECOMMENDATION: 1. Recommend decreasing dry weight/fluid removal from peritoneal dialysis as tolerated. 2. Continue bronchial hygiene. 3. Await cytology report, but do not suspect malignancy. cc: Vinicius Bah MD
[2018-05-24] MEDS: ATROVENT NEB INH SCH ×2 (03:52→10:49)
[2018-05-24] MEDS: DUONEB (A & A) INH SCH ×2 (03:52→07:59)
[2018-05-24] MEDS: PULMICORT INH SCH (07:59)
[2018-05-24] MEDS: BREO ELLIPTA 200/25 MCG INH INH SCH (07:59)
[2018-05-24 08:18] LABS: ALBUMIN 2.4 g/dL (3.5-5.0); CALCIUM 8.3 mg/dL (8.8-10.2); CREATININE 7.5 mg/dL (0.7-1.2); PHOSPHORUS 6.8 mg/dL (2.7-4.5); POTASSIUM 3.5 mmol/L (3.5-5.1)
[2018-05-24] MEDS: NEPHRO-VITE PO SCH (08:58)
[2018-05-24] MEDS: SINGULAIR PO SCH (08:58)
[2018-05-24] MEDS: ICAR-C PO SCH (08:58)
[2018-05-24] MEDS: CENTRUM SILVER PO SCH (08:59)
[2018-05-24] MEDS: COREG PO SCH (08:59)
[2018-05-24] MEDS: PRILOSEC PO SCH (08:59)
[2018-05-24] MEDS: LASIX PO SCH (09:00)
--- NOTE | 2018-05-24 09:03 | Diag Imaging Result Doc PS360 ---
EXAM: CHEST-PORTABLE HISTORY: pneumonia TECHNIQUE: Portable chest single view COMPARISON: 05/22/2018 FINDINGS: The lungs are slightly better aerated on the current exam. Slight decrease in size of the right-sided pleural effusion. Basilar atelectasis and/or infiltrates persist. Vascular distention is less pronounced. IMPRESSION: Mild interval improvement. Electronically signed by Monster Foley 05/24/2018 9:00 AM
[2018-05-24] MEDS: MIRALAX PO SCH (09:04)
[2018-05-24] MEDS: DULCOLAX PR SCH (09:04)
[2018-05-24] MEDS: LACTULOSE PO SCH (09:04)
[2018-05-24] MEDS: MILK OF MAGNESIA PO SCH (09:10)
[2018-05-24 09:24] LABS: HEMATOCRIT 29.5 % (42.0-52.0); HEMOGLOBIN 9.2 g/dL (14.0-18.0); MCH 31.6 PG (27-31); MCHC 31.2 g/dL (33-37); MCV 101.4 FL (81-99); MPV 11.1 FL (7.4-10.4); RBC 2.91 XMIL (4.7-6.1); RDW 17.8 % (11.5-14.5); WBC 12.39 X1000 (4.8-10.8)
--- NOTE | 2018-05-24 09:55 | NEPHROLOGY PROGRESS NOTE ---
DATE: 05/24/2018 TIME SEEN: 0810. SUBJECTIVE: Mr. Delgado is resting quietly in bed and states that he is cold today. He has no complaints. He states his breathing has improved. OBJECTIVE: Vital Signs: Temperature 98.2, blood pressure 146/55, heart rate 64. Respirations 18. He is on room air. Last recorded saturation 95%. He has had 400 in. He has had 200 out with noted 2 L off on peritoneal dialysis. LABORATORY DATA: Sodium 140, potassium 3.5, chloride 95, CO2 of 29. BUN 58, creatinine 7.5, glucose 93. Anion gap is 16, calcium 8.3, phosphorus 6.8, albumin 2.4. Previous hemoglobin 9.4. PHYSICAL EXAMINATION: General: This is a 72-year-old white male resting quietly in bed. No acute distress. Appears chronically ill. Skin: Warm and dry. HEENT: Normocephalic, atraumatic. Conjunctivae pale pink he has ERIC. Mucous membranes dry. Neck: Supple. Trachea midline. No JVD. Cardiovascular: Regular rate and rhythm. He is without murmur or gallop. His lungs are clear to auscultation bilaterally. Equal excursion though he has had some coarse breath sounds that slightly clears with cough. He is on room air. Abdomen is soft, nontender. Positive bowel sounds. PD catheter remains intact without redness or drainage. Genitourinary: Not inspected. Patient has minimal void with dialysis assistance. Extremities have trace pretibial edema. No clubbing or cyanosis. Neurologic: He is alert and oriented x3. ASSESSMENT AND PLAN: 1. Chronic kidney disease, stage 5D. The patient remains on peritoneal dialysis. He uses the cycler at night. He was taken off this a.m. for 2 L. We will plan for further treatment this evening if he remains in the hospital. 2. Electrolytes and acid-base balance. These are stable. 3. Anemia. This has remained stable, though hemoglobin is at 9.4. 4. Pleural effusions. Patient was placed on a mixed bag of 2.5 and 4.5 dialysis. No indications for further intervention. I would like to thank you for allowing us to follow with this patient. Dictated by RASHMI Brandon for Quintin Hernandez MD Face to face encounter, data reviewed, discussed with Susie Cruz on 05/24/18. I agree with the above assessment and plan of care. cc: RASHMI Brandon MD [facility]
[2018-05-24] MEDS: KLONOPIN PO SCH (10:38)
--- NOTE | 2018-05-24 11:01 | GASTROENTEROLOGY PROGRESS NOTE ---
DATE: 05/24/2018 SUBJECTIVE: No acute overnight events. Afebrile. Patient denies any nausea, vomiting, fevers. Shortness of breath has improved significantly and denies any abdominal complaints. Having bowel movements without any blood in stool. Tolerating p.o. diet. OBJECTIVE: Vital Signs: Temperature 98.2, heart rate is 68, respiratory rate of 16, and O2 saturation of 92% on room air. Blood pressure 142/49. Generally: Patient is awake, alert, conversant, pleasant. Neck: No lymphadenopathy. HEENT: Anicteric. Moist mucous membranes. Cardiac: Regular rate and rhythm. No murmurs. Lungs: Decreased breath sounds at bases, otherwise clear. No wheezing. Abdomen: Obese. Peritoneal catheter noted. Normoactive bowel sounds. Nontender. No obvious ascites. Extremities: Lower extremities, no clubbing, cyanosis, edema. LABS: No labs from today. Hemoglobin yesterday was 9.2 in the evening from 9.4 on May 22. ASSESSMENT AND PLAN: Mr. Delgado is a 72-year-old gentleman with end-stage renal disease, on peritoneal dialysis, anemia of chronic disease, who was admitted with hypoxic respiratory distress as well as acute on chronic anemia in the setting of large pleural effusion. He is status post diagnostic and therapeutic thoracentesis as well as blood transfusion. He has not demonstrated any overt GI bleeding during his hospitalization. He has not required any further transfusion since admission. His respiratory status has improved significantly with supportive care and removal of pleural fluid. At this time, we will recommend outpatient diagnostic EGD and colonoscopy once patient continues to improve from his recent illness. 1. Acute on chronic anemia. Outpatient EGD and colonoscopy. Continue once daily proton pump inhibitor p.o. for gastrointestinal prophylaxis. 2. End-stage renal disease on peritoneal dialysis as per Nephrology. 3. Constipation. Continue bowel regimen as needed. 4. Pleural effusion followed by pulmonary team saturating well on room air. 5. Obesity, smoking. Work on diet, exercise and weight loss as outpatient. 6. The patient from a GI standpoint is stable and ready for discharge. Will defer discharge recommendations per primary team. Please call with any questions or concerns.
[2018-05-24 13:07] VITALS: BP 144/57
--- NOTE | 2018-05-29 06:42 | DISCHARGE SUMMARY ---
ADMISSION DATE: 05/18/2018 DISCHARGE DATE: 05/24/2018 PATIENT'S PRIMARY CARE PHYSICIAN: Dr. Rico. FINAL DISCHARGE DIAGNOSES: 1. Status post right thoracentesis secondary to a large right-sided pleural effusion. 2. Fluid volume overload. 3. End-stage renal disease on peritoneal dialysis. 4. Hypertension. 5. Constipation. 6. Anxiety disorder. 7. Chronic obstructive pulmonary disease. 8. Gastroesophageal reflux disease. 9. Severe protein calorie malnutrition. CONSULTATIONS: 1. Nephrology consultation. 2. Pulmonary consultation. 3. GI consultation. 4. Cardiology consultation. IMAGIN. Echocardiogram which revealed an ejection fraction of 45% with grade 1 ventricular diastolic dysfunction. Mild pulmonary hypertension. Moderate aortic stenosis. 2. CT of the chest which revealed bilateral pleural effusions with compressive atelectasis. PROCEDURES: Thoracentesis at which time 1.5 L of pleural fluid was removed. HOSPITAL COURSE: Mr. Delgado is a 72-year-old male with chronic diastolic CHF, end-stage renal disease on peritoneal dialysis, hypertension, and COPD, who presented to the ER with a chief complaint of increasing shortness of breath. On admission, a chest x-ray was done that revealed bilateral pleural effusions with a large one noted to be on the right. The patient was admitted to the hospitalist service and Cardiology, Pulmonary, and Nephrology were consulted. The patient underwent an echocardiogram that revealed an ejection fraction of 45%, grade 1 diastolic dysfunction, and mild pulmonary hypertension. The audio visual secretary performed a bedside thoracentesis at which time 1.5 L of pleural fluid was removed from the right side. The patient immediately had improvement in his respiratory status. The patient was also maintained on his peritoneal dialysis prescription throughout the hospitalization. Slowly, the patient's volume status improved. The patient was also challenged with high- dose Lasix at a dosage of 200 mg IV every 12 hours. The patient also requested home health services, so [employer] [facility] arranged that for the patient. The patient continued to improve clinically, and was ultimately cleared for discharge home on 05/24/2018. DISCHARGE MEDICATIONS: 1. Icar C one tab oral twice a day. 2. Lasix 200 mg p.o. twice a day. 3. Mometasone 2 puffs inhaled twice a day. 4. ProAir 2 puffs inhaled every 4 hours p.r.n. 5. [place] 10/325 one tab oral every 4 hours p.r.n. for pain. 6. Nexium 40 mg p.o. daily. 7. Breo Ellipta 1 puff inhaled daily. 8. Renavite 0.8 mg p.o. daily. 9. Atrovent 0.5 mg inhaled every 6 hours. 10. Remeron 30 mg p.o. at bedtime. 11. Coreg 12.5 mg p.o. twice a day. 12. Singular 10 mg p.o. daily. 13. Klonopin 0.5 mg p.o. twice a day. DISCHARGE DIET: Low-sodium diet. ACTIVITY: As tolerated. FOLLOWUP INSTRUCTIONS: The patient will need to follow up with Dr. Hernandez as scheduled by his clinic. cc: Barbara Broussard MD
== END 2018-05-24 13:57 | disposition home health service (06) | DRG 291 ==
LOC: ICU 08:24 → INF 08:24 → OBSVTOIN 11:40 → SUATTDRO 11:40 → 3N 05-20 12:47
PROVIDERS: ATTEND Internal Medicine
CPT/HCPCS: 36415; 36430; 71010; 71020; 71045; 71046; 71250; 80053; 80069; 81001; 82150; 82270; 82533; 82550; 82607; 82728; 82746; 82945; 82948; 83540; 83550; 83605; 83615; 83735; 83880; 83986; 84100; 84145; 84157; 84425; 84439; 84443; 84484; 85025; 85027; 85045; 85610; 85730; 86850; 86900; 86901; 86920; 87015; 87040; 87070; 87102; 87116; 87147; 87205; 87206; 88112; 88305; 88341; 88342; 88343; 89050; 89051; 93005; 93010; 93306; 94640; 94761; 94799; 97110; 97162; 97530; A9270; G0461; G0462; J0692; J0713; J1100; J1940; J2020; J2060; J3370; J7040; P9016; XXXXX

== ENCOUNTER 2018-05-29 20:42 | Inpatient (IN) ==
[2018-05-29 22:46] LABS: BASO# 0.02 X1000 (0.0-0.2); BASO% 0.2 % (0.0-0.8); EOS# 0.88 X1000 (0.0-0.7); EOS% 6.8 % (0.0-10.0); HEMATOCRIT 29.6 % (42.0-52.0); HEMOGLOBIN 9.2 g/dL (14.0-18.0); IMM GRAN# 0.06 X1000 (0.0-0.04); IMM GRAN% 0.5 % (0.0-0.5); LYMPH# 0.84 X1000 (1.2-3.4); LYMPH% 6.5 % (20.5-51.1); MCH 31.7 PG (27-31); MCHC 31.1 g/dL (33-37); MCV 102.1 FL (81-99); MONO# 1.17 X1000 (0.11-0.59); MPV 10.9 FL (7.4-10.4); NEUT# 9.96 X1000 (1.4-6.5); PLT 279 X1000 (130-400); RDW 17.5 % (11.5-14.5); WBC 12.93 X1000 (4.8-10.8)
[2018-05-29 23:01] LABS: CALCIUM 9.1 mg/dL (8.8-10.2); CREATININE 8.6 mg/dL (0.7-1.2); POTASSIUM 4.4 mmol/L (3.5-5.1)
[2018-05-30 00:06] LABS: URINE SOURCE CLEAN CATCH
[2018-05-30 00:27] LABS: BILIRUBIN URINE NEGATIVE (NEGATIVE); BLOOD URINE NEGATIVE (NEGATIVE); COLOR YELLOW; GLUCOSE URINE NEGATIVE (NEGATIVE); KETONE URINE NEGATIVE (NEGATIVE); LEUKOCYTES URINE NEGATIVE (NEGATIVE); NITRITE URINE NEGATIVE (NEGATIVE); PH URINE 5.5; PROTEIN URINE 200 mg/dL (NEGATIVE); TURBIDITY URINE CLEAR (CLEAR); UROBILINOGEN URINE NORMAL (NORMAL)
[2018-05-30 00:28] LABS: UR EPITHELIAL CELLS <10 /HPF (<10); URINE BACTERIA NEGATIVE /HPF; URINE CASTS NONE SEEN; URINE CRYSTALS NONE SEEN; URINE RBC <10 /HPF (<10); URINE SMALL ROUND CELLS NONE SEEN; URINE WBC <10 /HPF (<10); URINE YEAST PRESENT
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
[2018-05-30 01:37] LABS: INR 0.93; PROTIME 13.3 Seconds (11.0-16.0)
[2018-05-30 01:38] LABS: PTT 35.1 Seconds (22.3-41.8)
[2018-05-30 02:56] LABS: MAGNESIUM 3.1 mg/dL (1.5-2.7)
[2018-05-30] MEDS: MAXIPIME 1 GM in NS 50 ML IV SCH (03:25)
[2018-05-30] MEDS ORDERED: ZOFRAN IV PRN (03:39)
[2018-05-30] MEDS: ZYVOX 600 MG/D5W 600 MG/300 ML IVPB IV SCH ×2 (04:20→13:42)
--- NOTE | 2018-05-30 06:14 | Diag Imaging Result Doc PS360 ---
CHEST-PORTABLE - 05/29/2018 INDICATION: WEAKNESS; R/O ACUTE CARDIOPULMOARNY PROCESS COMPARISON: 05/24/2018 FINDINGS: Lung volumes are improved. There is a stable small right basilar pleural effusion. There is probably a trace left pleural effusion. No infiltrates or edema. Heart size and pulmonary vascularity is top normal. IMPRESSION: Improved lung volumes. Stable small pleural effusions. Electronically signed by John Lawson 05/30/2018 6:12 AM
[2018-05-30] MEDS ORDERED: DULERA 100 MCG/5 MCG INHALER INH SCH (07:30)
--- NOTE | 2018-05-30 07:46 | EKG Report ---
Test Performed on : 05/29/2018 8:55:58 PM Test Reason : weakness Blood Pressure : / mmHG Vent. Rate : 056 BPM Atrial Rate : 056 BPM P-R Int : 162 ms QRS Dur : 086 ms QT Int : 476 ms P-R-T Axes : 051 003 205 degrees QTc Int : [address] & T wave abnormality, consider inferolateral ischemia Abnormal ECG When compared with ECG of 19-MAY-2018 07:54, T wave inversion now evident in Anterior leads QT has shortened Unconfirmed Result
[2018-05-30 08:15] LABS: BASO# 0.03 X1000 (0.0-0.2); BASO% 0.3 % (0.0-0.8); EOS% 6.4 % (0.0-10.0); HEMATOCRIT 26.6 % (42.0-52.0); HEMOGLOBIN 8.3 g/dL (14.0-18.0); IMM GRAN# 0.04 X1000 (0.0-0.04); IMM GRAN% 0.4 % (0.0-0.5); LYMPH# 1.31 X1000 (1.2-3.4); MCHC 31.2 g/dL (33-37); MCV 102.7 FL (81-99); MONO# 0.98 X1000 (0.11-0.59); MPV 10.7 FL (7.4-10.4); NEUT# 7.83 X1000 (1.4-6.5); NEUT% 71.9 % (42.2-75.2); PLT 236 X1000 (130-400); RBC 2.59 XMIL (4.7-6.1); RDW 17.2 % (11.5-14.5); WBC 10.89 X1000 (4.8-10.8)
[2018-05-30 08:22] LABS: ALBUMIN 2.6 g/dL (3.5-5.0); CALCIUM 8.8 mg/dL (8.8-10.2); CREATININE 8.9 mg/dL (0.7-1.2); MAGNESIUM 2.9 mg/dL (1.5-2.7); PHOSPHORUS 7.2 mg/dL (2.7-4.5); POTASSIUM 3.9 mmol/L (3.5-5.1)
[2018-05-30] MEDS ORDERED: LASIX PO SCH (09:00)
[2018-05-30] MEDS ORDERED: COREG PO SCH (09:00)
[2018-05-30] MEDS: DULERA 100 MCG/5 MCG INHALER INH SCH (10:00)
[2018-05-30] MEDS: SINGULAIR PO SCH (10:06)
[2018-05-30] MEDS: NEXIUM PO SCH (10:06)
--- NOTE | 2018-05-30 10:16 | HISTORY AND PHYSICAL ---
PRIMARY CARE PROVIDER: Dr. Rico. INSURANCE CLAIMS ASSISTANT: Dr. Hernandez. CHIEF COMPLAINT: Weakness and shortness of breath. HISTORY OF PRESENT ILLNESS: Mr. Delgado is a 72-year-old male with a past medical history most notable for chronic kidney disease on peritoneal dialysis, hypertension, COPD, and peripheral vascular disease. The patient states that over the past several days that he has had worsening weakness. He states that it is to the point where he is unable to get up out of a chair without assistance. The patient states that he was initially using a walker though was unable to ambulate with this, either, does not have access to a wheelchair at this time. He states that when he initially stands from a sitting position he feels dizzy, though this does subside, though he does state when he is walking that he feels weak all over and feels like his legs are giving way or buckling under him. He denied any headache. He does report some intermittent chest pain that had been ongoing x1 month. He also reports that he has had shortness of breath, as well. He states this is mainly upon exertion. He does report that he has had a dry cough, though he denies any fever, body aches, or chills. The patient did report that he had a fall back on 05/08/2018. He was diagnosed with several right rib fractures. The patient states he is still experiencing quite a bit of pain in his right chest, right side secondary to this. He denies any abdominal pain, nausea, vomiting, or diarrhea. He states that recently he has had a problem with constipation, though his last good bowel movement was today. He denies any hematochezia or melena. He denies any dysuria. The patient was recently discharged from our facility 05/24/2018. During this admission, he was treated for a large right pleural effusion status post right thoracentesis, fluid volume overload as well as a possible pneumonia. The patient was given looks like a one-time dose of cefepime and Zyvox on the day of discharge though has not had any further antibiotics given. Upon evaluation in the ER today, the patient's initial vital signs were temperature 97.6, heart rate 56, respirations 18, blood pressure 118/61, oxygen saturation 90% on room air. Mr. Delgado did have some mild leukocytosis with a white blood cell count of 12,930. Chest x-ray did show a right-sided pleural effusion which may appear to be slightly worse than previous x-ray. We are awaiting official Radiology overread. It should be mentioned he is reporting worsening weakness, dizziness upon standing, worsening shortness of breath and cough. At this time, the patient will be admitted inpatient for the treatment and evaluation of his generalized weakness and possible pneumonia. REVIEW OF SYSTEMS: A 14-point review of systems was conducted with the patient and all were negative except for pertinent positives mentioned in the above HPI. PAST MEDICAL HISTORY: 1. Hypertension. 2. End-stage renal disease on peritoneal dialysis. 3. COPD. 4. Peripheral vascular disease. 5. Benign prostatic hypertrophy with lower tract obstruction. 6. Anxiety. PAST SURGICAL HISTORY: 1. Left knee replacement. 2. Triple-A repair. 3. Colon resection. 4. Ostomy and ostomy takedown. 5. Appendectomy. 6. Tonsillectomy. 7. Recent right thoracentesis for drainage of a right pleural effusion. 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 He did formerly smoke though quit smoking over 15 years ago. He did smoke half a pack a day for approximately 20 years. There is no known alcohol or illicit drug use. FAMILY HISTORY: Positive for his mother passing away with congestive heart failure. His father with prostate cancer. ALLERGIES: The patient has allergies to Demerol. HOME MEDICATIONS: The patient is not able to verify his home medications at this time. We have asked that they contact his pharmacy or they have his family members bring his bottles to the hospital. The patient was just recently discharged approximately 5 days ago. Given his recent discharge, we have gone ahead and continued the following medicines of Coreg, Klonopin, Nexium, Lingle, Singulair, and Breo Ellipta as well as Dulera. Once an accurate list has been obtained, we will address his home medication list. DIAGNOSTIC DATA/LABORATORY RESULTS: White blood cell count is 12,930, hemoglobin 9.2, hematocrit 29.6, platelet count 279. PT 13.3, INR 0.93, PTT 35.1. Sodium 142, potassium 4.4, chloride 95, serum bicarbonate 31, BUN 65, creatinine 8.6 with a GFR of 6, glucose 99, calcium 9.1, magnesium 3.1. CK 135. Troponin 0.106. Urinalysis was obtained via clean catch, was positive for protein, was negative for glucose, ketones, blood, nitrites, leukocytes, white blood cells, or bacteria. Chest x-ray did show what appears to be the possibility of worsening right pleural effusion and possible pneumonia. We are awaiting official Radiology overread. EKG showed sinus bradycardia at a rate of 56 with a QTc of 459. PHYSICAL EXAMINATION: VITAL SIGNS: Temperature 97.6, heart rate 56, respirations 20, blood pressure 146/53, oxygen saturation is 96% on room air. GENERAL: Mr. Delgado is a very pleasant 72-year-old male who is resting in the ER stretcher who is in no acute distress. He was awake, alert, and able to answer questions appropriately. HEENT: Head is atraumatic, normocephalic. Pupils are equal, round, reactive to light, were 3 mm bilaterally and brisk. Subconjunctivae were slightly pale. Oral mucosa was moist. Oropharynx was clear. NECK: Supple, trachea midline. There is no JVD noted. CARDIOVASCULAR: The patient has S1 and S2. There does appear to be a slight systolic murmur, as well. There are no gallops or rubs appreciated with a regular rate and rhythm. PULMONARY: The patient has symmetrical chest expansion bilaterally. Lung sounds in bilateral full cabrera did have expiratory wheeze noted, as well as he does have some diminished lung sounds in the right lung base. ABDOMEN: Soft, nondistended, and nontender. Bowel sounds are present in all 4 quadrants. The patient's peritoneal dialysis port site does appear to be within normal limits. There were no signs of infection noted. The patient was slightly tender in his right chest/right flank area, though he does have a recent history of several right rib fractures. EXTREMITIES: No cyanosis, clubbing, or edema noted. Pulse, motor and sensory are intact in all extremities. Pedal pulses and radial pulses are 2+ bilaterally. INTEGUMENTARY: The patient's skin is pink, warm and dry. NEUROLOGICAL: The patient is alert and oriented x4. He is able to move all extremities. The patient does have some generalized weakness noted. This is equal bilaterally. There do not appear to be any focal neurologic deficits present. ASSESSMENT AND PLAN: 1. Generalized weakness. This could be multifactorial. The patient has reported worsening weakness as well as shortness of breath. He does have a right pleural effusion. There could be underlying pneumonia. We have placed him on antibiotic coverage. We will obtain blood cultures and a sputum culture. He also has reported some dizziness upon standing. We have ordered some orthostatics, as well. We will continue with a series of cardiac enzymes as well as a Physical Therapy evaluation, and will continue to follow, although the patient may need rehab placement upon discharge. We have also placed a Case Management and Metal Furnace Operator consult. 2. Possible pneumonia and right pleural effusion. We have placed the patient on antibiotic coverage of cefepime and Zyvox. Will continue with aggressive pulmonary toilet, schedule DuoNeb treatments. We have continued his Breo Ellipta and his Dulera. Given his recent history of thoracentesis performed for his right pleural effusion by Dr. Bah, we have placed a consult with him, as well. We will await his evaluation for further recommendations for management. 3. History of chronic obstructive pulmonary disease. Will continue with treatment as mentioned above for #2. 4. End-stage renal disease on peritoneal dialysis. We have placed a consult with Dr. Hernandez. We are awaiting his evaluation and further recommendations for management. The patient is denying any abdominal pain or nausea or vomiting. He is nontender upon palpation. He has denied any fever, body aches, or chills. 5. Hypertension. Will continue his Coreg. 6. Anxiety. Will continue his Klonopin. 7. Gastroesophageal reflux disease. Will continue his Nexium. 8. DVT prophylaxis will be provided with SCDs. The patient has been placed on the medical floor with telemetry, all vital signs q.4 h. Will do strict intake and output, incentive spirometry. He will be on a heart healthy diet. We will repeat a CBC, renal profile, and a series of cardiac enzymes in the morning. Further orders and recommendations pending hospital course, diagnostic studies, and physician evaluation. Dictated by RASHMI Espinosa for Kedar Lin MD cc: Kedar Lin MD
[2018-05-30 11:17] LABS: ALLEN TEST YES; BE 8.9 mmoll (-3.0-3.0); BLOOD TYPE ARTERIAL; HCO3-(ACT) 31.9 mmoll (20.0-26.0); METHB 0.9 % (0.0-1.5); O2HB 94.7 % (95.0-99.0); PCO2(98.6) 41 mmHg (35-45); PO2(98.6) 74 mmHg (60-100); SAMPLE BLOOD; SAO2 97.8 % (95.0-100.0); THB 8.2 g/dL (11.5-17.4); pH(98.6) 7.51 (7.35-7.45)
[2018-05-30 11:18] LABS: MODALITY ROOM AIR
--- NOTE | 2018-05-30 12:19 | NEPHROLOGY CONSULTATION ---
DATE: 05/30/2018 REASON FOR ADMISSION: Weakness associated with shortness of breath. REASON FOR CONSULT: End-stage renal disease with peritoneal dialysis for evaluation and assist in treatment. PHYSICIAN REQUESTING CONSULT: Kedar Lin MD per RASHMI Espinosa. HISTORY OF PRESENT ILLNESS: Mr. Delgado is a 72-year-old, white male, who is known to our outpatient services for peritoneal dialysis on a daily basis. The patient had recently been discharged from the hospital on 05/24/2018, treated for a large right pleural effusion, status post right thoracentesis with fluid volume overload and possible pneumonia at that time. He is followed by Dr. Kirk. The patient was discharged home secondary to no local rehab facility able to perform peritoneal dialysis. He was scheduled for home health to arrive yesterday to evaluate and start treating. They did not arrive. They were scheduled to again come today due to his being in the hospital. His has cancelled it at this time and is now requesting other methods of rehab after discharge. The patient still has increased work of breathing. He denies any chest pain. Chronic lower extremity swelling. States that he is unable to get out of the chair at home without assistance. His had called the ambulance service to see if they could assist to get him up and due to his severe weakness, they had encouraged her to bring him to the emergency department. In the ER, it was found that he had a dry cough. No fever, no body aches or chills. On 05/08/2018, he had a history of several right rib fractures and continues to experience pain in this area. No nausea, vomiting, no diarrhea. No abdominal discomfort. PD catheter is dry and intact. states it had clear fluid yesterday when had taken him off yesterday morning of his peritoneal dialysis. He was not set up yesterday evening. He denies any hematochezia, hemoptysis or melena. No dysuria present. In the emergency room, it was found that his temperature was 97.6. Heart rate was low at 56, blood pressure was 118/60s. His O2 saturation was 90% on room air. Chest x-ray did show right-sided pleural effusions slightly worse from previous x-rays upon discharge, increased worsening of his weakness. It is noted that he will be admitted for further evaluation and possible treatment. PAST MEDICAL HISTORY: End-stage renal disease. Patient is currently on peritoneal dialysis, hypertension, COPD, peripheral vascular disease. The patient has BPH with lower tract obstruction, anxiety, anemia of chronic disease, osteodystrophy of chronic disease. PREVIOUS SURGICAL HISTORY: Left knee replacement, AAA repair, colon resection, ostomy and ostomy resection and takedown. Appendectomy, tonsillectomy. Recent right thoracentesis for drainage of right pleural effusion on his last hospitalization earlier this month. He also has a PD catheter placement. SOCIAL HISTORY: He is . 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 He is a former smoker, quit approximately 15 years ago, half pack a day for greater than 20 years. Denies alcohol or illicit drug use. He is . He lives with his spouse. He has family who are attentive to his care. FAMILY HISTORY: Positive for mother passing away with congestive heart failure. Father with prostate cancer. CURRENT ALLERGIES: Reviewed as Demerol. HOME MEDICATIONS: Have yet to be reconciled. Noted on the chart are Coreg, Klonopin, Nexium, Hunt, Singulair, Breo Ellipta and Dulera. REVIEW OF SYSTEMS: Times 10 with pertinent positives listed above in the HPI. VITAL SIGNS: Most recent vital signs: Temperature 97.6, blood pressure 119/66 last recorded while in the room. Heart rate is 61, respirations are 16. He is currently on room air. Last recorded saturation is 93-95 percent. LABS: Sodium 142, potassium 4.4, chloride 95, CO2 of 31, BUN 65, creatinine 8.6 , glucose 99. His anion gap is 16, calcium 9.1, magnesium 3.1. White count 12.93, hemoglobin 9.2 , hematocrit 29.6 with a platelet count of 279. The patient has a PT of 13.3, INR of 0.93, PTT 35.1. The patient has urinalysis with positive proteinuria. Blood cultures are currently pending. He does have positive troponin. PHYSICAL EXAMINATION: General: This is a 72-year-old, white male. He is currently resting in bed. He appears chronically ill. He is in no acute distress. Skin: Warm and dry. HEENT: Normocephalic, atraumatic. Conjunctiva is pale pink. He has ERIC. Mucous membranes are dry. Neck: Supple. Trachea midline. No evidence of JVD in the upright position. The patient does have a systolic murmur present. No gallop appreciated. Lungs: Diminished breath sounds bilateral with expiratory wheezing present. He is currently on room air. Diminished breath sounds right lower lung base posterior. Abdomen: Large, distended. Positive bowel sounds. PD catheter remains dry and intact without redness or drainage. Tenderness on the right upon palpation in the rib area. Genitourinary: Not inspected. Extremities: Has 1+ lower extremity edema present. Pulses palpable. Neurological: He is alert and oriented x4. ASSESSMENT AND PLAN: 1. Chronic kidney disease stage 5D. The patient did not receive his dialysis treatment yesterday. He still has some residual peritoneal dialysis fluid intact. He is to be admitted. We have requested a private room to perform his peritoneal dialysis treatments while in the hospital. 2. Electrolytes and acid-base balance. These are acceptable. 3. Anemia. This is low, but stable. 4. Weakness due to patient being on peritoneal dialysis. I have spoken with the . There is a rehab facility in [place], called [facility] who do perform peritoneal dialysis during rehab. states that this would probably be preferable than going to [place] due to having family living in the [place]. We will consult social services designee in regards with possible rehab for planning of discharge. 5. Pneumonia versus right pleural effusion. It is noted that Dr. Kirk has been consulted. We will stop his Lasix 200 mg IV b.i.d. at this time. 6. Bradycardia. Patient's heart rate is in the 50s. We will decrease his Coreg to 6.25 mg b.i.d. and we will continue to monitor and evaluate. I would like to thank you for allowing us to follow with this patient. Dictated by RASHMI Brandon for Quintin Hernandez MD Face to face encounter, data reviewed, discussed with Susie Cruz on 05/30/18. I agree with the above assessment and plan of care. cc: RASHMI Brandon MD [facility]
--- NOTE | 2018-05-30 14:33 | PROGRESS NOTE ---
DATE: 05/30/2018 INTERVAL HISTORY: Mr. Delgado was admitted overnight for complaints of generalized weakness and inability to get up, which has been progressive over the last 1 month. He was recently admitted for right-sided rib fracture and was discharged home. Since then, he has had gradual decline in his physical conditioning. He denies any fever or chills. He only has occasional cough because of rib pain. He denies being able to make any sputum. OBJECTIVE: Vital signs: Temperature 98.1 degrees, pulse 64 per minute, blood pressure 148/61, saturating 95% on 2 L nasal cannula. General: Does not appear in acute distress. HEENT: Oral cavity is moist. Lungs: Air entry decreased in the right infrascapular region with inspiratory crackles. No wheeze or rhonchi. Heart: S1, S2 normal. Systolic murmur affecting the 2nd intercostal space, parasternal region on the right. No rub or gallop. Abdomen: Soft. Midline abdominal scar. Right lower quadrant has peritoneal dialysis catheter. The site appears noninflamed. Extremities: Bilateral lower extremity edema affecting up to the lower hook region. LABORATORY DATA: Labs suggestive off improving leukocytosis, macrocytic anemia, acceptable range of platelet count, hypernatremia, elevated BUN and creatinine, hypermagnesemia, and hyperphosphatemia with low aluminum level. MICROBIOLOGY: Blood culture no growth to date. Influenza screen was negative. IMAGING: Chest x-ray suggested improved lung volumes and small bilateral pleural effusions, more on the right than on the left. ASSESSMENT AND PLAN: 1. Generalized weakness, multifactorial including general debility, suspected right lower lobe pneumonia, and his history of end-stage renal disease. Continue physical therapy. He will eventually need rehabilitation placement. 2. Suspected right lower lobe pneumonia with right parapneumonic effusion. Continue intravenous cefepime and intravenous Zyvox. Follow up with procalcitonin level and taper antibiotic accordingly. He does have leukocytosis. However, he denies any fever, chills, or worsening cough. If procalcitonin level is low, my plan is to discontinue antibiotic in the future. 3. History of chronic obstructive pulmonary disease or asthma. Continue albuterol/ipratropium nebulization, fluticasone and Vilanterol inhalers. He is also listed to be taking mometasone formoterol. Continue montelukast. 4. End-stage renal disease, on peritoneal dialysis. Nephrology has been consulted for inpatient dialysis. 5. Essential hypertension. Continue his Coreg at a lower dose. 6. Anxiety. Continue home Klonopin. 7. Gastroesophageal reflux disease. Continue Nexium. 8. Deep venous thrombosis prophylaxis. Sequential compression devices. DISPOSITION: The patient remains inside the hospital. Once he is medically stable, my plan is to discharge him to rehab, I anticipate later this week. Plan of care was discussed with him and his at bedside who is the surrogate decision-maker. cc: Tristan Ibanez MD
[2018-05-30] MEDS: BREO ELLIPTA 200/25 MCG INH INH SCH (15:30)
[2018-05-30] MEDS: COREG PO SCH (21:58)
[2018-05-30] MEDS: NORCO-10 PO PRN (23:28)
[2018-05-31] MEDS: ZYVOX 600 MG/D5W 600 MG/300 ML IVPB IV SCH ×2 (01:51→14:17)
[2018-05-31 06:59] LABS: ALBUMIN 2.4 g/dL (3.5-5.0); CREATININE 8.9 mg/dL (0.7-1.2); PHOSPHORUS 6.9 mg/dL (2.7-4.5); POTASSIUM 3.5 mmol/L (3.5-5.1)
--- NOTE | 2018-05-31 07:46 | CONSULTATION ---
DATE OF CONSULTATION: 05/30/2018 REQUESTING PROVIDER: RASHMI Espinosa. REASON FOR CONSULTATION: Possible pneumonia, right pleural effusion. HISTORY OF PRESENT ILLNESS: This is a 72-year-old male with a medical history of grade 1 ventricular diastolic dysfunction, hypertension, end-stage renal disease, persistent intractable cough, peripheral vascular disease, benign prostatic hyperplasia, history of moderate aortic stenosis, anemia of chronic disease, history of colon polyps and anxiety. He was last admitted on 05/18/2018 to 05/24/2018 for significant hypothermia, dyspnea at rest, bilateral pleural effusions, generalized weakness and bradycardia. He presented to the ER last night with progressively worsening generalized weakness over a month, mainly on the legs and knees. In the ER, the patient initially had bradycardia with pulse rate of 56 and oxygen saturation 90% at room air. Lab revealed leukocytosis with WBC of 12.93 and mild troponin elevation at 0.106. Chest x-ray showed improved lung volumes with stable small right basilar pleural effusion and probably a trace left pleural effusion. At the time of my examination, the patient is lying comfortably in the bed with no acute respiratory distress. Patient's is at the bedside. The patient reports shortness of breath, chronic dizziness, occasional dry cough and right chest pain with deep breath or cough, which is due to his recent fall on 05/08/2018. He was found with 3 right rib fractures after that fall. He denies fever, chills, headache, nausea, vomiting, constipation, diarrhea or palpitation. PAST MEDICAL HISTORY: 1. Grade 1 ventricular diastolic dysfunction with left ventricular ejection fraction of 45%, based on the echocardiogram on 05/18/2018. 2. Hypertension. 3. End-stage renal disease, on peritoneal dialysis with a prior episode of methicillin sensitive Staph aureus, spontaneous bacterial peritonitis. 4. Persistent intractable cough. PFT in October 2017 revealed mild restriction, but no significant obstruction. He did have significant reduction in diffusion capacity. 5. Peripheral vascular disease. 6. Benign prostatic hyperplasia with lower tract obstruction. 7. Nonrheumatic mild to moderate aortic stenosis, best on the echocardiogram on 05/18/2018. 8. Anemia of chronic disease. 9. History of colon polyp. 10. Anxiety. PAST SURGICAL HISTORY: 1. Left knee replacement, 2. AAA repair. 3. Colon resection for colon polyp with ostomy placement and takedown. 4. Appendectomy. 5. Tonsillectomy. 6. Recent right thoracentesis on 05/18/2018 for drainage of right transudative pleural effusion. 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 He used to smoke half a pack per day for about 20 years and quit over 15 years ago. He drinks occasionally. He has no history of illicit drug use. FAMILY HISTORY: Positive for prostate cancer and congestive heart failure. ALLERGIES: Meperidine. REVIEW OF SYSTEMS: A 10-point review of systems was conducted and the pertinent is listed within the HPI. Otherwise, noncontributory. PHYSICAL EXAMINATION: Vital Signs: Temperature 98.1, blood pressure 116/56, pulse 61, respiratory rate 18, oxygen saturation 95% at room air. General: Well developed, well nourished male lying on the bed in no acute distress. HEENT: Atraumatic. Trachea midline. Mucosa pink and moist. Respiratory: Breathing is even and unlabored. Diminished breathing sounds in the right lower lung zone. Otherwise, clear to auscultation. Cardiovascular: Regular rate and rhythm with murmur noted. Gastrointestinal: Normoactive bowel sounds in all 4 quadrants. Soft, nontender and slightly distended. Extremities: Trace pedal edema. No cyanosis. No clubbing. The dorsalis pedis pulse 2+ bilaterally. Neurologic: Alert, oriented x 3. Speech is fluent. Generalized weakness. LAB DATA: White blood cell 10.89, hemoglobin 8.3, hematocrit 26.6, platelet 236 ,000. Sodium 146, potassium 3.9, chloride 98, carbon dioxide 29, BUN 69, creatinine 8.9, glucose 96, troponin 0.092. ABG: PH 7.51, pCO2 41, PO2 74, HC03 31.9, base excess 8.9 and oxyhemoglobin 94.7. ASSESSMENT: This is a 72-year-old male with a medical history of grade 1 ventricular diastolic dysfunction, hypertension, end-stage renal disease on dialysis, persistent intractable cough, peripheral vascular disease, benign prostatic hyperplasia, aortic stenoses, anemia, colon polyp and anxiety. He has been admitted for generalized weakness, suspected right lower lobe pneumonia and right parapneumonic effusion. 1. Generalized weakness. 2. Right pleural effusion. Likely renal related especially in absence of fever and WBC elevatin. 3. Shortness of breath. 4. Suspected right lower lobe pneumonia. PLAN: 1. Continue antibiotics and bronchodilators. 2. ABG and chest x-ray if indicated. 3. Procalcitonin and blood culture pending. 4. Supplemental oxygen if needed. 5. Consider diuretics, if indicated. 6. Continue GI and DVT prophylaxis. Thank you for the courtesy of this consult. Dictated by RASHMI Douglas for Erick Kirk MD cc: RASHMI Douglas MD [facility]
[2018-05-31] MEDS: DULERA 100 MCG/5 MCG INHALER INH SCH (08:00)
[2018-05-31] MEDS: BREO ELLIPTA 200/25 MCG INH INH SCH (08:00)
--- NOTE | 2018-05-31 10:09 | NEPHROLOGY PROGRESS NOTE ---
DATE: 05/31/2018 TIME SEEN: 0725 hours. SUBJECTIVE: Mr. Abreu is lying flat in bed. States that his breathing has improved. He continues to be weak. He denies chest pain or increased work of breathing. OBJECTIVE: His most recent vital signs: Temperature 97.6 degrees, blood pressure 115/66, heart rate 57, respirations 18. He is on room air. Last recorded saturation 99%. He has had 300 in; he has had 450 out. LABS: Sodium 138, potassium 3.5, chloride 93, CO2 30. BUN 70, creatinine 8.9, glucose 133. Anion gap of 18, calcium 9, phosphorus 6.9, albumin 2.4, previous hemoglobin 9.2. PHYSICAL EXAMINATION: General: This is a 72-year-old white male resting quietly in bed. He appears in no acute distress, though he appears chronically ill. Skin: Warm and dry. HEENT: Normocephalic, atraumatic. Conjunctiva is pale. He has ERIC. Mucous membranes are dry. Neck: Supple. Trachea midline. No JVD. Cardiovascular: Regular rate and rhythm. He is without murmur or gallop. Lungs: Clear to auscultation bilaterally. Equal excursion on room air. Abdomen: Soft, nontender. Positive bowel sounds. PD catheter remains intact. He is still attached to his cycler. Genitourinary: Not inspected. Patient has been voiding. Extremities: Have no edema. No clubbing or cyanosis. Neurological: Alert and oriented x3. ASSESSMENT AND PLAN: 1. Chronic kidney disease stage 5 D. The patient has had his routine peritoneal dialysis treatment yesterday evening. He is still attached to the cycler during our exam. We will plan for treatment again this evening. We may possibly change his dialysis to assist with his elevated BUN. 2. Electrolytes and acid-base balance. These are fairly stable. 3. Anemia. This remains acceptable. 4. Weakness. Again, we may need to change his dialysis. Due to multifactorial causes, may need less fluid removal and more frequent cleansing from his dialysis. 5. Bradycardia. We had decreased patient's Coreg to 6.25 twice daily. Heart rate remains still in the mid to upper 50s. We will continue to monitor. I would like to thank you for allowing us to follow with this patient. Dictated by RASHMI Brandon for Quintin Hernandez MD Face to face encounter, data reviewed, discussed with Susie Cruz on 06/01/18. I agree with the above assessment and plan of care. cc: RASHMI Brandon MD [facility]
[2018-05-31] MEDS: NORCO-10 PO PRN ×2 (10:29→16:22)
[2018-05-31] MEDS: COREG PO SCH ×2 (10:30→20:50)
[2018-05-31] MEDS: NEXIUM PO SCH (10:30)
[2018-05-31] MEDS: SINGULAIR PO SCH (10:30)
--- NOTE | 2018-05-31 18:36 | PROGRESS NOTE ---
DATE: 05/31/2018 INTERVAL HISTORY: Patient was transferred from the emergency room to routine floor. I saw him at bedside. He states he has been sleeping well and wanted to sleep. However, he agreed and allowed me to do the physical examination. He states he is feeling better than yesterday. He denies any chest pain or shortness of breath. We discussed about the differential diagnosis behind his sickness including uremia, inadequate removal of toxin to peritoneal dialysis, active pneumonia considering elevated procalcitonin level. We also discussed about rehab transfer in the future. Currently, vitals show temperature of 98.1 degrees, pulse 72, respiratory rate 18, blood pressure 115/53 and saturating 96% on room air. PHYSICAL EXAMINATION: General: He does not appear in acute distress. Oral cavity is moist. Lungs: Air entry decreased in right infrascapular region with inspiratory crackles. No wheeze or rhonchi. Adequate air entry and vesicular breath sounds on left hemithorax. Cardiovascular: S1, S2 normal. Systolic murmur affecting second intercostal space, parasternal region on the right. No rub or gallop. Abdomen: Soft. Midline abdominal scar which is well healed. Right lower quadrant peritoneal dialysis catheter. The site appears noninflamed. Bilateral lower extremity edema extending up to lower hook level. LABORATORY: BMP suggestive of elevated BUN and creatinine. Otherwise unremarkable. His troponin's have peaked. Microbiology: Blood culture no data to date. Procalcitonin level was elevated to 1.525. IMAGING: No new imaging data. ASSESSMENT AND PLAN: 1. Acute physical deconditioning and generalized weakness. Likely contributing factors includes general debility, suspected right lower lobe pneumonia, and history of end- stage renal disease with uremia. Continue physical therapy. He would eventually need rehab placement. Social Work has been consulted. 2. Suspected right lower lobe pneumonia with right parapneumonic effusion, which was persistent as compared to his earlier chest x-ray on previous admission in early May. His procalcitonin level is elevated to 1.3, so I will continue him on intravenous linezolid and cefepime for hospital-acquired pneumonia. Follow-up repeat procalcitonin in 06/01. If that procalcitonin shows levels less than 0.3, at that point, I will consider discontinuing antibiotics. 3. History of chronic obstructive pulmonary disease or asthma. Continue ipratropium nebulization, and fluticasone inhaler. Continue montelukast. 4. ESRD on peritoneal dialysis. Nephrology is on board and is planning to change the peritoneal dialysis parameters to address his uremia. 5. Essential hypertension. Continue Coreg. 6. Continue Klonopin for anxiety, and Nexium for GERD. 7. Deep venous thrombosis prophylaxis and sequential compression devices. 8. Disposition: I am awaiting patient to come out of bed and sit in the chair with physical therapy's help. If he is able to do that tomorrow, my plan is to change his IV antibiotics to p.o. and discharge him to rehab. I am here to get in touch with Social Work if he has already found a bed or not. Plan of care was discussed with him. All of his questions have been answered. cc: Tristan Ibanez MD [facility]
[2018-06-01] MEDS: MAXIPIME 1 GM in NS 50 ML IV SCH (01:42)
[2018-06-01] MEDS: ZYVOX 600 MG/D5W 600 MG/300 ML IVPB IV SCH ×2 (01:43→15:05)
[2018-06-01] MEDS: DULERA 100 MCG/5 MCG INHALER INH SCH (06:31)
[2018-06-01 06:41] LABS: BASO# 0.01 X1000 (0.0-0.2); BASO% 0.1 % (0.0-0.8); EOS# 0.91 X1000 (0.0-0.7); EOS% 7.9 % (0.0-10.0); HEMATOCRIT 24.7 % (42.0-52.0); HEMOGLOBIN 7.8 g/dL (14.0-18.0); IMM GRAN# 0.04 X1000 (0.0-0.04); IMM GRAN% 0.3 % (0.0-0.5); LYMPH# 0.86 X1000 (1.2-3.4); LYMPH% 7.5 % (20.5-51.1); MCH 32.2 PG (27-31); MCHC 31.6 g/dL (33-37); MCV 102.1 FL (81-99); MONO# 0.88 X1000 (0.11-0.59); MONO% 7.6 % (1.7-9.3); MPV 10.4 FL (7.4-10.4); NEUT# 8.81 X1000 (1.4-6.5); NEUT% 76.6 % (42.2-75.2); PLT 249 X1000 (130-400); RBC 2.42 XMIL (4.7-6.1); RDW 17.2 % (11.5-14.5); WBC 11.51 X1000 (4.8-10.8)
[2018-06-01 07:13] LABS: ALBUMIN 2.5 g/dL (3.5-5.0); CALCIUM 8.5 mg/dL (8.8-10.2); CREATININE 8.2 mg/dL (0.7-1.2); PHOSPHORUS 5.8 mg/dL (2.7-4.5); POTASSIUM 3.6 mmol/L (3.5-5.1)
[2018-06-01] MEDS: DUONEB (A & A) INH PRN ×3 (08:01→16:18)
[2018-06-01] MEDS: BREO ELLIPTA 200/25 MCG INH INH SCH (08:01)
[2018-06-01] MEDS: NEXIUM PO SCH (08:58)
[2018-06-01] MEDS: COREG PO SCH ×2 (08:58→21:45)
[2018-06-01] MEDS: SINGULAIR PO SCH (08:58)
--- NOTE | 2018-06-01 15:51 | NEPHROLOGY PROGRESS NOTE ---
DATE: 06/01/2018 TIME SEEN: 0810 SUBJECTIVE: Mr. Delgado is resting quietly in bed. He has just been taken off his cycler for his peritoneal dialysis treatment during the night. States that he is feeling just a little bit better, though he continues to be weak. OBJECTIVE: His most recent vital signs, temperature 97.9, blood pressure 132/50, heart rate 63, respirations 16. He is on room air. Last recorded saturation 98%. He has had 650 in, 780 out. LABORATORY DATA: Sodium 137, potassium 3.6, chloride 92, CO2 31, BUN 62, creatinine 8.2, glucose 95, anion gap of 14, calcium 8.5, phosphorus 5.8, albumin 2. White count 11.51, hemoglobin 7.8, hematocrit 24.7, with a platelet count of 249,000. Blood cultures are negative. The patient has a 24 hour urine in progress. PHYSICAL EXAMINATION: General: This is a 72-year-old white male resting quietly in bed, in no acute distress. Skin: Warm and dry, though he appears chronically ill. HEENT: Normocephalic, atraumatic. Conjunctivae pale pink. He has ERIC. Mucous membranes dry. Neck: Supple. Trachea midline. No appreciable JVD. Cardiovascular: Regular rate and rhythm without murmur or gallop. Lungs: Clear to auscultation bilaterally. Equal excursion on room air. Abdomen: Soft, nontender, positive bowel sounds. PD catheter remains intact without redness or swelling or any drainage. Genitourinary: Not inspected. Patient has been voiding. We will evaluate a 24 hour urine. Extremities: No edema. No clubbing or cyanosis. Neurological: Alert and oriented x3. ASSESSMENT AND PLAN: 1. Chronic kidney disease stage 5D. The patient has had his routine peritoneal dialysis treatment last night. We will plan for the cycler again this evening. We are attempting to get patient discharged to outpatient where they do his peritoneal dialysis and help with his strength building. 2. Electrolytes, acid-base balance. These are acceptable. 3. Anemia. This remains low but stable. 4. Leukocytosis. Patient is currently on cefepime and Zyvox for possible pneumonia versus right pleural effusion. Followed by the primary care. I would like to thank you for allowing us to follow with this patient. Dictated by RASHMI Brandon for Quintin Hernandez MD cc: RASHMI Brandon MD
--- NOTE | 2018-06-01 16:39 | PROGRESS NOTE ---
DATE: 06/01/2018 SUBJECTIVE: This patient is alert and oriented x3, resting comfortably in bed. He is still complaining of generalized weakness and difficulty walking. He is tolerating his dialysis. He is not complaining of shortness of breath. He seems to be stable. Hemoglobin today 7.8. I will recheck the blood work in the morning. OBJECTIVE: Vital Signs: Temperature 98.3 degrees, pulse 66, respiratory rate 16, blood pressure 143/59, oxygen saturation 94% on room air. HEENT: Head normocephalic. No trauma. PERRLA. Neck: Supple. No JVD. No masses. Central trachea. Chest: Decreased breath sounds at the bases, mostly on the left side, with some rales. Abdomen: Soft, nontender, nondistended. No hepatosplenomegaly. Extremities: No edema. No clubbing. No cyanosis. Neurological: The patient is alert and oriented x3. No focal deficits but generalized weakness. DIAGNOSTIC STUDIES: WBC 11.5, hemoglobin 7.8, hematocrit 24.7, platelet 249,000. Sodium 137, potassium 3.6, chloride 92, bicarbonate 31, BUN 62 creatinine 8.2, glucose 95, calcium 8.5, albumin 2.5. ASSESSMENT AND PLAN: 1. Acute physical deconditioning and generalized weakness, probably a combination of right lower lobe pneumonia and history of end-stage renal disease. Continue physical therapy. Pending rehabilitation center placement. 2. Suspected right lower lobe pneumonia with parapneumonic effusion. His procalcitonin level is 1.3, so we will continue with antibiotics. 3. History of chronic obstructive pulmonary disease (COPD). Continue with breathing treatment. Not in exacerbation. 4. End-stage renal disease, on peritoneal dialysis. Nephrology Department on board. Continue with the same management. 5. Essential hypertension. Continue with Coreg. 6. Anxiety. Continue with Klonopin. 7. Gastroesophageal reflux disease (GERD). Continue with proton pump inhibitors. 8. Deep vein thrombosis prophylaxis with SCDs. Overall, this patient is doing better, but he still weak. We will continue physical therapy and occupational therapy, and we will monitor. Hopefully, we can discharge this patient either this week or at the beginning of the next week. cc: Kedar Lin MD
[2018-06-02] MEDS: ZYVOX 600 MG/D5W 600 MG/300 ML IVPB IV SCH (01:09)
--- NOTE | 2018-06-02 06:44 | Diag Imaging Result Doc PS360 ---
EXAM: CHEST-PORTABLE HISTORY: dyspnea TECHNIQUE: Portable chest single view COMPARISON: 05/29/2018 FINDINGS: Poor inspiratory effort. There is a small right pleural effusion with basilar atelectasis. There may be underlying infiltrates as well. The heart is mildly enlarged. IMPRESSION: Mild interval worsening. Electronically signed by Monster Foley 06/02/2018 6:42 AM
[2018-06-02 07:35] LABS: BASO# 0.01 X1000 (0.0-0.2); BASO% 0.1 % (0.0-0.8); EOS# 0.82 X1000 (0.0-0.7); HEMATOCRIT 22.5 % (42.0-52.0); HEMOGLOBIN 6.9 g/dL (14.0-18.0); IMM GRAN# 0.02 X1000 (0.0-0.04); IMM GRAN% 0.2 % (0.0-0.5); LYMPH# 0.89 X1000 (1.2-3.4); LYMPH% 9.8 % (20.5-51.1); MCH 31.4 PG (27-31); MCHC 30.7 g/dL (33-37); MCV 102.3 FL (81-99); MONO# 0.62 X1000 (0.11-0.59); MONO% 6.8 % (1.7-9.3); MPV 10.6 FL (7.4-10.4); NEUT# 6.72 X1000 (1.4-6.5); NEUT% 74.1 % (42.2-75.2); PLT 257 X1000 (130-400); RDW 17.2 % (11.5-14.5); WBC 9.08 X1000 (4.8-10.8)
[2018-06-02 07:51] LABS: ALBUMIN 2.1 g/dL (3.5-5.0); PHOSPHORUS 5.8 mg/dL (2.7-4.5); POTASSIUM 3.5 mmol/L (3.5-5.1)
[2018-06-02] MEDS ORDERED: NS 250 ML IV SCH (08:15)
[2018-06-02] MEDS: BREO ELLIPTA 200/25 MCG INH INH SCH (10:11)
[2018-06-02] MEDS ORDERED: VANCOMYCIN IV PER PHARMACY MISC SCH (10:15)
--- NOTE | 2018-06-02 10:27 | Diag Imaging Result Doc PS360 ---
EXAM: CHEST-2 VIEWS HISTORY: POST THORACENTESIS TECHNIQUE: Inspiratory and expiratory chest, two views COMPARISON: 6:04 AM FINDINGS: Films taken following thoracentesis. Interval decrease in the size of the right pleural effusion. No pneumothorax. IMPRESSION: No postprocedural pneumothorax. Electronically signed by Monster Foley 06/02/2018 10:24 AM
--- NOTE | 2018-06-02 10:32 | Diag Imaging Result Doc PS360 ---
EXAM: US THORACENTESIS W/IMAGE GUIDE HISTORY: Diagnostic and therapeutic on the right TECHNIQUE: Ultrasound-guided thoracentesis COMPARISON: None. FINDINGS: Prior to the procedure I discussed the risk and benefits with the patient. Primary risks include bleeding, infection, and pneumothorax. Questions were answered. Consent was given. The permit was signed. Ultrasound was used to localize the largest fluid collection. This area was cleaned and draped in the normal fashion. Lidocaine was used as a local anesthetic. Needle and catheter were advanced into the right fluid collection on the first attempt without difficulty. The needle was withdrawn. The catheter was hooked to hand suction. Approximately 1.2 L of thin reddish-brown fluid were withdrawn without difficulty. The catheter was then withdrawn. No immediate postprocedural complications. IMPRESSION: Ultrasound-guided thoracentesis with no immediate complication. Electronically signed by Monster Foley 06/02/2018 10:30 AM
[2018-06-02 10:50] LABS: PH BODY FLUID 7.5; SPECIMEN PLEURAL FLUID
[2018-06-02] MEDS ORDERED: VANCOMYCIN 1,800 MG in NS 500 ML IV ONE (11:00)
[2018-06-02] MEDS: COREG PO SCH ×2 (11:01→20:50)
[2018-06-02] MEDS: NEXIUM PO SCH (11:01)
[2018-06-02] MEDS: SINGULAIR PO SCH (11:02)
[2018-06-02 11:14] LABS: UR CREATININE 145.7 mg/dL (14-26)
[2018-06-02 11:19] LABS: BODY FLUID SOURCE PLEURAL FLUID; WBC BF 585 /cumm
[2018-06-02 11:26] LABS: UR PROTEIN 269.9 mg/dL
[2018-06-02 11:33] LABS: UR CREATININE TOTAL 298.7 mg/24 (800-1800)
[2018-06-02 11:39] LABS: MONOS 56 %; POLYS 44 %
[2018-06-02 11:51] LABS: GLUCOSE BODY FLUID 104 mg/dL; LDH BODY FLUID 267 U/L; TOTAL PROT BODY FLUID 3.7 g/dL
--- NOTE | 2018-06-02 14:02 | Diag Imaging Result Doc PS360 ---
EXAM: CHEST-2 VIEWS 06/02/2018 HISTORY: inspir/expiratory TECHNIQUE: Inspiratory expiratory chest COMMENT: There are small bilateral pleural effusions. There is no evidence of pneumothorax. Compared to the original series at 1021 there has been no significant change. IMPRESSION: No evidence of pneumothorax. Electronically signed by Pardeep Gaitan 06/02/2018 1:59 PM
--- NOTE | 2018-06-02 15:36 | PROGRESS NOTE ---
DATE: 06/02/2018 SUBJECTIVE: As per the patient, he is feeling better. He is status post 1 PRBC because the hemoglobin dropped from 7.8 to 6.9. Also, he had a thoracentesis done today on the right side and 1.2 L of fluid has been removed. Nephrology Department already evaluated this patient and they have decided to change peritoneal dialysis for hemodialysis. He has been complaining of some left hip pain that started yesterday. I do not see any redness or focal infection. It is not painful to palpation or mobilization; as per the patient, it is painful when he coughs. OBJECTIVE: Vital Signs: Temperature 97.8 degrees, pulse 74, respiratory rate 20, blood pressure 120/41, oxygen saturation 97% on room air. HEENT: Head normocephalic. No trauma. PERRLA. Neck: Supple. No JVD. No masses. Central trachea. Chest: Clear to auscultation. No wheezing. No rales. Abdomen: Soft, nontender, nondistended. No hepatosplenomegaly. He has a peritoneal dialysis catheter in place. Extremities: No edema. No clubbing. No cyanosis. Neurological examination: The patient is alert and oriented x3. No focal deficits, but generalized weakness. LABORATORY: WBC 9, hemoglobin 6.9, hematocrit 22.5, platelets 257. Sodium 137, potassium 3.5, chloride 91, bicarbonate 31. BUN 60, creatinine 8, glucose 91, calcium 8, albumin 2.1. ASSESSMENT AND PLAN: 1. Acute physical deconditioning and generalized weakness, probably a combination of right lower lobe pneumonia and history of end-stage renal disease. Continue physical therapy pending rehabilitation center placement. 2. Suspected right lower lobe pneumonia with parapneumonic effusion. His procalcitonin level is 1.3, so we will continue with the same antibiotics. He is status post thoracentesis and 1.2 L of fluid has been removed. 3. History of chronic obstructive pulmonary disease. Continue with breathing treatment. Not in exacerbation. 4. End-stage renal disease. He has been on peritoneal dialysis, but it looks like he will be placed on hemodialysis. Likely he will get the catheter placed tomorrow. 5. Hypertension. Continue with Coreg. 6. Anxiety. Continue with Klonopin. 7. Gastroesophageal reflux disease. Continue with proton pump inhibitors. 8. Deep vein thrombosis prophylaxis with sequential compression devices. 9. Left hip pain. I do not have any redness or pain to palpation or mobilization of the hip. As per the patient, it is a little bit painful when he coughs. I do not think an x-ray is going to give me an answer of what is going on. For now, I will monitor. cc: Kedar Lin MD
[2018-06-02] MEDS: NORCO-10 PO PRN (18:38)
[2018-06-02] MEDS: KLONOPIN PO PRN (20:53)
[2018-06-03] MEDS: MAXIPIME 1 GM in NS 50 ML IV SCH (00:47)
--- NOTE | 2018-06-03 01:05 | NEPHROLOGY PROGRESS NOTE ---
DATE: 06/02/2018 SUBJECTIVE: Today he is complaining of left hip pain. He describes it as muscle injury. He states he had no trauma that he is aware of. He states it is keeping him from getting out of bed. OBJECTIVE: Vital Signs: Blood pressure 120/41, heart rate 74, respirations 20, afebrile. General: He is a elderly man, no distress. Skin is pale and dry. Conjunctivae are pink. Pupils are equal. Neck: Neck veins are not distended. Heart: Regular. No gallops. Lungs: Equal. No crackles. Abdomen: Soft, nontender. Bowel sounds present. Extremities: 1+ edema. No clubbing or cyanosis. IMPRESSION: 1. Anemia. He will be transfused again today. 2. Hip pain. Unclear cause. 3. Malnutrition. A 24 hour urine found creatinine clearance of only 3 with 500 mg proteinuria. We increased his peritoneal dialysis prescription but I counseled him that in the short term he would be better served by transitioning to hemodialysis. I have consulted Dr. Brito for tunneled dialysis catheter placement. He would benefit from Remeron to both help with his mood and help with his appetite but we cannot add this because of his antibiotic treatment. I discussed this directly with Dr. Elias and he will make changes. cc: Quintin Hernandez MD
[2018-06-03 07:05] LABS: BASO# 0.01 X1000 (0.0-0.2); BASO% 0.1 % (0.0-0.8); EOS# 1.05 X1000 (0.0-0.7); EOS% 13.2 % (0.0-10.0); HEMATOCRIT 26.4 % (42.0-52.0); HEMOGLOBIN 8.5 g/dL (14.0-18.0); LYMPH# 0.76 X1000 (1.2-3.4); LYMPH% 9.5 % (20.5-51.1); MCH 31.6 PG (27-31); MCHC 32.2 g/dL (33-37); MCV 98.1 FL (81-99); MONO# 0.68 X1000 (0.11-0.59); MONO% 8.5 % (1.7-9.3); MPV 10.4 FL (7.4-10.4); NEUT# 5.47 X1000 (1.4-6.5); NEUT% 68.7 % (42.2-75.2); PLT 268 X1000 (130-400); RBC 2.69 XMIL (4.7-6.1); RDW 18.3 % (11.5-14.5); WBC 7.97 X1000 (4.8-10.8)
[2018-06-03 07:42] LABS: ALBUMIN 2.6 g/dL (3.5-5.0); CREATININE 7.3 mg/dL (0.7-1.2); PHOSPHORUS 5.5 mg/dL (2.7-4.5); POTASSIUM 3.8 mmol/L (3.5-5.1)
[2018-06-03] MEDS: BREO ELLIPTA 200/25 MCG INH INH SCH (08:01)
[2018-06-03] MEDS: TYLENOL PO PRN ×2 (09:15→18:44)
[2018-06-03] MEDS: NEXIUM PO SCH (09:15)
[2018-06-03] MEDS: COREG PO SCH ×2 (09:15→20:44)
[2018-06-03] MEDS: SINGULAIR PO SCH (09:16)
[2018-06-03] MEDS: DUONEB (A & A) INH PRN (20:50)
[2018-06-03] MEDS: KLONOPIN PO PRN (20:50)
--- NOTE | 2018-06-04 00:06 | PROGRESS NOTE ---
DATE: 06/03/2018 SUBJECTIVE: No acute events overnight. He is status post 1 PRBC. The hemoglobin improved from 6.9 to 8.5. Will continue with the same management. Hopefully, he will get a dialysis catheter placed next Tuesday. OBJECTIVE: Vital Signs: Temperature 97 degrees, pulse 70, respiratory rate 20, blood pressure 107/44, oxygen saturation 97% on room air. HEENT: Head normocephalic. No trauma. PERRLA. Neck: Supple. No JVD. No masses. Central trachea. Chest: Clear to auscultation. No wheezing. No rales. Abdomen: Soft, nontender, nondistended. No hepatosplenomegaly. He has a peritoneal dialysis catheter in place. Extremities: No edema. No clubbing. No cyanosis. Neurological: The patient is alert and oriented x3. No focal deficits, but generalized weakness. LABORATORY: WBC 7.9, hemoglobin 8.5, hematocrit 26.4, platelets 268,000. Sodium 138, potassium 3.8, chloride 94, bicarbonate 32, BUN 54, creatinine 7.3, glucose 97, calcium 8, albumin 2.6. ASSESSMENT AND PLAN: 1. Acute physical deconditioning and generalized weakness, likely a combination of right lower lobe pneumonia and history of end-stage renal disease. Continue with the same management. Likely, this patient will need to go to a rehab center. 2. Suspected right lower lobe pneumonia, with parapneumonic effusion. His procalcitonin level is 1.3, so we will continue with antibiotics. He is status post thoracentesis a couple days ago, and 1.2 L of fluid has been removed. 3. History of chronic obstructive pulmonary disease. Continue with breathing treatment. Not in exacerbation. 4. End-stage renal disease. He has been on peritoneal dialysis, but it looks like he will be placed on hemodialysis now. He will have a dialysis catheter placed next coming Tuesday. 5. Hypertension. Continue with Coreg. 6. Anxiety. Continue with Klonopin. 7. Gastroesophageal reflux disease. Continue with proton pump inhibitors. 8. Deep vein thrombosis prophylaxis with sequential compression devices. 9. Left hip pain. I do not have any redness or pain to palpation on mobilization of that hip. The patient is a little bit painful, only when he coughs. I do not think an x-ray is going to show me anything in particular/any problem. For now, we will monitor. cc: Kedar Lin MD
[2018-06-04] MEDS: NORCO-10 PO PRN ×4 (00:23→23:05)
--- NOTE | 2018-06-04 00:56 | NEPHROLOGY PROGRESS NOTE ---
DATE: 06/03/2018 SUBJECTIVE: He ate very little today. He is still coughing and still has pain in the right chest when he coughs. He has done very little with therapy. OBJECTIVE: Vital Signs: Blood pressure 107/44, heart rate 70, respirations 20, afebrile. General: No acute distress. He is lying in the right lateral decubitus position. Skin: Warm and dry. Conjunctivae are pink. Pupils are not examined. Heart: Regular. No gallops. Lungs: Equal. No crackles or wheezes. Abdomen: Soft, nontender. Bowel sounds are present. Extremities: Have minimal edema. No clubbing or cyanosis. IMPRESSION: 1. Chronic kidney disease. We are going to transition over to hemodialysis for better management of his volume status and to diminish the nutritional demands associated with his renal replacement therapy. They are interested in converting back to peritoneal dialysis when able. Electrolytes and acid-base are in target. 2. Anemia. Hemoglobin 8.5 following transfusion. Observe. He was evaluated by gastroenterology during his last hospitalization but they elected to plan his GI procedures as outpatient procedures. If his hemoglobin continues to be a problem then we may need to get GI to consider inpatient endoscopy. cc: Quintin Hernandez MD
[2018-06-04 07:30] LABS: HEMATOCRIT 26.1 % (42.0-52.0); HEMOGLOBIN 8.2 g/dL (14.0-18.0)
[2018-06-04 08:00] LABS: ALBUMIN 2.3 g/dL (3.5-5.0); CALCIUM 8.2 mg/dL (8.8-10.2); CREATININE 6.8 mg/dL (0.7-1.2); PHOSPHORUS 5.9 mg/dL (2.7-4.5); POTASSIUM 3.7 mmol/L (3.5-5.1)
[2018-06-04] MEDS: SINGULAIR PO SCH (08:11)
[2018-06-04] MEDS: COREG PO SCH ×2 (08:11→23:05)
[2018-06-04] MEDS: NEXIUM PO SCH (08:11)
[2018-06-04] MEDS: BREO ELLIPTA 200/25 MCG INH INH SCH (09:25)
[2018-06-04] MEDS ORDERED: VANCOMYCIN 1 GM/NS 1 GM/250 ML IVPB IV SCH (11:00)
--- NOTE | 2018-06-04 12:16 | PROGRESS NOTE ---
DATE: 06/04/2018 SUBJECTIVE: No acute events overnight. Hemoglobin and hematocrit more stable after 1 PRBC. I think the plan is to place a dialysis catheter tomorrow. This patient has generalized weakness and the plan is to send this patient to a rehab center. OBJECTIVE: Vital Signs: Temperature 97.6 degrees, pulse 67, respiratory rate 20, blood pressure 130/47, oxygen saturation 95% on room air. HEENT: Head normocephalic. No trauma. PERRLA. Neck: Supple. No JVD. No masses. Central trachea. Chest: Clear to auscultation. No wheezing. No rales. Abdomen: Soft, nontender, nondistended. No hepatosplenomegaly. He has a peritoneal dialysis catheter in place. Extremities: No edema. No clubbing. No cyanosis. Neurological: The patient is alert and oriented x3. No focal deficits but generalized weakness. LABORATORY: Hemoglobin 8.2, hematocrit 26.1. Sodium 138, potassium 3.7, chloride 94, bicarbonate 31, BUN 53, creatinine 6.8, glucose 101, calcium 8.2, albumin 2.3. ASSESSMENT AND PLAN: 1. Acute physical deconditioning and generalized weakness, likely secondary to right lower lobe pneumonia and history of end-stage renal disease. Continue with the same management. Likely this patient will need to go to a rehab center. 2. Suspected right lower lobe pneumonia, parapneumonic effusion. His procalcitonin level is 1.3, so likely this patient has an infectious process. Continue with antibiotics. He is status post thoracentesis a few days ago and 1.2 L of fluid has been removed. 3. History of chronic obstructive pulmonary disease. Continue breathing treatment. Not in exacerbation. 4. End-stage renal disease. He has been on peritoneal dialysis but now he will start hemodialysis. The plan is to put a dialysis catheter tomorrow. Surgery and Nephrology Department on board. 5. Hypertension. Continue with Coreg. 6. Anxiety. Continue with Klonopin. 7. Gastroesophageal reflux disease. Continue with PPIs. 8. Deep vein thrombosis prophylaxis with sequential compression devices. 9. Left hip pain. He does not have any redness or pain to palpation or mobilization of that hip. The hip is painful when he coughs, but I believe it is getting better. cc: Kedar Lin MD
--- NOTE | 2018-06-04 14:21 | GENERAL SURGERY CONSULTATION ---
DATE: 06/04/2018 HISTORY OF PRESENT ILLNESS: This is a 72-year-old gentleman with a significant vascular history, end-stage renal disease on peritoneal dialysis, and patient known to Dr. Brito. He presents with worsening weakness. Dr. Hernandez plans to switch him for peritoneal dialysis to hemodialysis. He has no abdominal complaints related to his peritoneal catheter. MEDICAL HISTORY: COPD, end-stage renal disease, hypertension, peripheral vascular disease, history of aneurysm, BPH, anxiety. PAST SURGICAL HISTORY: Left knee replacement, AAA repair, colon resection with ostomy and subsequent reversal, appendectomy, tonsillectomy, thoracentesis, peritoneal dialysis catheter. SOCIAL HISTORY: History of smoking. No alcohol or drugs. FAMILY HISTORY: Reviewed. REVIEW OF SYSTEMS: Ten point negative. PHYSICAL EXAMINATION: Vital signs: Temperature 97.6 degrees, pulse 67, blood pressure 130/47, oxygen saturation is the mid 90s on room air. General: He is alert. Cardiovascular: Normal rate. Pulmonary: No increased work of breathing. Abdomen: Soft. Peritoneal dialysis catheter is in place. Integument: Warm and dry. Peripheral vascular: He does have some lower extremity edema. Psychiatric: Appropriate mood and affect. Neurologic: Generalized weakness. DIAGNOSTIC STUDIES: White count is count 7, hematocrit 26. Creatinine 6.8, potassium 3.7. ASSESSMENT AND PLAN: This is a gentleman known to Dr. Brito. Dr. Brito has planned for a tunnel catheter. We made him n.p.o. at midnight. I do not see any other issues. cc: Yuan Escalera MD
[2018-06-05] MEDS: MAXIPIME 1 GM in NS 50 ML IV SCH (00:56)
[2018-06-05] MEDS ORDERED: NS 2,000 ML MISC PRN (06:38)
[2018-06-05] MEDS ORDERED: HEPARIN IV PRN (06:38)
[2018-06-05] MEDS ORDERED: TIGHT: 0.2 ML/HR FOR DIALYSIS MISC PRN (06:38)
--- NOTE | 2018-06-05 07:34 | Diag Imaging Result Doc PS360 ---
EXAM: CHEST-1 VIEW HISTORY: SOB TECHNIQUE: Portable chest single view COMPARISON: 06/02/2018 FINDINGS: Interval increase in the size of the small to moderate-sized right-sided pleural effusion is likely a tiny left pleural effusion as well. The heart is enlarged. There is mild pulmonary edema. IMPRESSION: Overall interval worsening. Electronically signed by Monster Foley 06/05/2018 7:32 AM
[2018-06-05] MEDS: BREO ELLIPTA 200/25 MCG INH INH SCH (07:37)
[2018-06-05 07:44] LABS: ALBUMIN 2.1 g/dL (3.5-5.0); BASO# 0.01 X1000 (0.0-0.2); BASO% 0.2 % (0.0-0.8); CALCIUM 8.5 mg/dL (8.8-10.2); CREATININE 6.8 mg/dL (0.7-1.2); EOS# 1.06 X1000 (0.0-0.7); EOS% 16.1 % (0.0-10.0); HEMOGLOBIN 8.3 g/dL (14.0-18.0); LYMPH# 0.95 X1000 (1.2-3.4); LYMPH% 14.5 % (20.5-51.1); MCH 31.8 PG (27-31); MCHC 31.9 g/dL (33-37); MCV 99.6 FL (81-99); MONO# 0.84 X1000 (0.11-0.59); MONO% 12.8 % (1.7-9.3); MPV 10.5 FL (7.4-10.4); NEUT# 3.71 X1000 (1.4-6.5); NEUT% 56.4 % (42.2-75.2); PHOSPHORUS 5.6 mg/dL (2.7-4.5); PLT 258 X1000 (130-400); POTASSIUM 3.4 mmol/L (3.5-5.1); RBC 2.61 XMIL (4.7-6.1); RDW 17.3 % (11.5-14.5); WBC 6.57 X1000 (4.8-10.8)
[2018-06-05] MEDS ORDERED: NS 250 ML ONE ×2 (12:05→14:34)
[2018-06-05] MEDS: COREG PO SCH ×2 (12:09→20:41)
[2018-06-05] MEDS: SINGULAIR PO SCH (12:09)
[2018-06-05] MEDS: NEXIUM PO SCH (12:09)
[2018-06-05] MEDS ORDERED: DIPRIVAN 1% ONE (13:36)
[2018-06-05] MEDS ORDERED: SENSORCAINE 0.5%-EPI 1:200,000 ONE (14:33)
[2018-06-05] MEDS ORDERED: HEPARIN ONE (14:37)
--- NOTE | 2018-06-05 15:44 | NEPHROLOGY PROGRESS NOTE ---
DATE: 06/05/2018 TIME SEEN: 07 SUBJECTIVE: Mr. Delgado is resting quietly in bed. He is NPO. He is scheduled to go to surgery today for a tunneled dialysis catheter per Dr. Brito. VITAL SIGNS: His most recent vital signs show temperature 97.6 degrees, blood pressure 126/80, heart rate 59, respirations 18. He is on room air. Last recorded saturation 98 %. He has had 300 in. He has had 200 out. LABORATORY DATA: Sodium 138, potassium 3.4, chloride 95, CO2 28, BUN 51, creatinine 6.8, glucose 101. Anion gap 15, calcium 8.5, phosphorus 5.6, albumin 2.1. The patient has a white count of 6.57, hemoglobin 8.3, hematocrit 26, and platelet count 258,000. PHYSICAL EXAMINATION: General: This is a 72-year-old white male. He is currently resting quietly in bed. He appears in no acute distress. Skin: Warm and dry. HEENT: Normocephalic, atraumatic. Conjunctivae pale. He has ERIC. Mucous membranes are dry. Neck: Supple. Trachea midline. No evidence of JVD. Cardiovascular: He is regular rate and rhythm without murmur or gallop. Lungs: Clear to auscultation bilaterally. Equal excursion. He is currently on room air. Abdomen: Soft, nontender. Positive bowel sounds. Peritoneal dialysis catheter remains dry and intact. He is currently still attached to his cycler machine from his nightly treatment. Genitourinary: Not inspected, with dialysis assist. Extremities: Trace pretibial edema. No clubbing or cyanosis. Neurological: The patient is slightly confused, according to his . ASSESSMENT AND PLAN: 1. Chronic kidney disease stage 5D. The patient remains NPO. He is scheduled for a hemodialysis tunnel catheter today. We will place him on dialysis after this treatment. He is to have a 2K bath. We will dialyze for 3-1/2 hours. We will attempt to pull patient to 2-3 L of ultrafiltration as tolerated. 2. Electrolytes and acid-base balance. These are acceptable. 3. Anemia. This is low but stable. 4. Leukocytosis. The patient remains on renal-dosed antibiotics. I would like to thank you for allowing us to follow with this patient. Dictated by RASHMI Brandon for Quintin Hernandez MD Face to face encounter, data reviewed, discussed with Susie Cruz on 06/05/18. I agree with the above assessment and plan of care. cc: RASHMI Brandon MD [facility]
[2018-06-05] MEDS ORDERED: NORCO-10 PO PRN (17:59)
[2018-06-05] MEDS ORDERED: DUONEB (A & A) INH PRN (18:02)
[2018-06-05] MEDS ORDERED: VANCOMYCIN 1 GM/NS 1 GM/250 ML IVPB IV SCH (18:15)
--- NOTE | 2018-06-05 18:15 | PROGRESS NOTE ---
DATE: 06/05/2018 SUBJECTIVE: The patient has no focal complaints. OBJECTIVE: Blood pressure 145/83, heart rate of 62, respiratory rate of 18, temperature 98.1 degrees.General: A well-developed male sitting up in bed. No major complaints. Breathing is improved somewhat . Cardiovascular: Regular rate and rhythm. Pulmonary: Bilateral breath sounds, diminished at bases. GI: Soft, nontender, nondistended. Bowel sounds are positive. LABORATORY DATA: White count 6, hemoglobin and hematocrit 8 and 26, platelets 258,000. Basic was okay. Albumin of 2.1. PROBLEM LIST: 1. Acute on chronic end-stage renal. We are transitioning him from peritoneal dialysis to hemodialysis. He had a full treatment yesterday so therefore hemodialysis will not be till tomorrow. 2. End-stage renal per Dr. Hernandez as previously described. 3. Right lower lobe pneumonia with parapneumonic effusion. His calcitonin is 1.3 which is felt to be consistent with infection. We will continue antibiotics and follow. 4. Hypertension. Will continue his Coreg and monitor closely. 5. Disposition. He is planning for rehab because of his overall just very weak status. Disposition pending clinical status. cc: Satish Hassan MD
--- NOTE | 2018-06-05 18:30 | OPERATIVE NOTE ---
PROCEDURE DATE: 06/05/2018 PROCEDURE: Right-sided tunnel dialysis catheter placement. SURGEON: Janes Brito MD. BAGGING MACHINE OPERATOR: Swathi Ba. PREOPERATIVE DIAGNOSIS: Chronic kidney disease 5 with need for hemodialysis. POSTOP DIAGNOSIS: Chronic kidney disease 5 with need for hemodialysis. DESCRIPTION OF PROCEDURE: Satisfactory general anesthesia was achieved. An LMA was used. The right side of the neck and upper anterior chest were prepped and draped in a sterile fashion. We imaged the right side of the neck and identified the internal jugular vein. We anesthetized the skin with 0.5 Marcaine with epinephrine made a small stab incision and accessed the internal jugular vein under direct visualization we then passed the wire under fluoroscopic guidance into the superior vena cava. We then anesthetized the skin below the clavicle. We made a small stab incision there and anesthetized the subcutaneous tissue between the infraclavicular incision and neck incision. We then tunneled the Glidecath hemodialysis catheter from the inferior incision to the superior incision. We then passed the dilators over the wire and then passed the dilator and introducer sheath over the wire. We removed the dilator and guidewire and introduced a catheter through the sheath into the superior vena cava to the right atrium. We were able to aspirate and irrigate easily. We secured the flange to the skin with nylon contained within the tray. We then flushed each lumen with strong heparin that is 5000 units/mL 1.8 mL in 1 lumen and 1.9 mL in the other lumen. We closed the skin the neck incision with 4-0 Polysorb subcuticular stitch. Telfa and sterile OpSites were applied. He tolerated it well, was sent to the recovery room in satisfactory condition. cc: Janes Brito MD
[2018-06-05] MEDS: ICAR-C PO SCH (20:41)
[2018-06-05] MEDS: REMERON PO SCH (20:42)
[2018-06-05] MEDS ORDERED: COREG PO SCH (21:00)
[2018-06-05] MEDS ORDERED: DULERA 100 MCG/5 MCG INHALER INH SCH (21:00)
[2018-06-05] MEDS ORDERED: KLONOPIN PO SCH (21:00)
[2018-06-05] MEDS: ATROVENT NEB INH SCH (21:05)
[2018-06-05] MEDS: NORCO-10 PO PRN (22:37)
[2018-06-06] MEDS: ATROVENT NEB INH SCH ×4 (03:28→21:15)
[2018-06-06] MEDS: BREO ELLIPTA 200/25 MCG INH INH SCH (07:17)
[2018-06-06] MEDS ORDERED: TIGHT: 0.2 ML/HR FOR DIALYSIS MISC PRN (07:20)
[2018-06-06] MEDS ORDERED: HEPARIN IV PRN (07:20)
[2018-06-06] MEDS ORDERED: NS 2,000 ML MISC PRN (07:20)
[2018-06-06 07:44] LABS: ALBUMIN 2.2 g/dL (3.5-5.0); CALCIUM 8.3 mg/dL (8.8-10.2); CREATININE 7.4 mg/dL (0.7-1.2); PHOSPHORUS 5.9 mg/dL (2.7-4.5); POTASSIUM 3.8 mmol/L (3.5-5.1)
[2018-06-06 07:45] LABS: BASO# 0.02 X1000 (0.0-0.2); BASO% 0.3 % (0.0-0.8); EOS# 1.33 X1000 (0.0-0.7); EOS% 16.7 % (0.0-10.0); HEMATOCRIT 27.3 % (42.0-52.0); HEMOGLOBIN 8.9 g/dL (14.0-18.0); IMM GRAN# 0.03 X1000 (0.0-0.04); IMM GRAN% 0.4 % (0.0-0.5); LYMPH% 13.8 % (20.5-51.1); MCH 31.9 PG (27-31); MCHC 32.6 g/dL (33-37); MCV 97.8 FL (81-99); MONO# 1.25 X1000 (0.11-0.59); MONO% 15.7 % (1.7-9.3); MPV 10.4 FL (7.4-10.4); NEUT# 4.25 X1000 (1.4-6.5); NEUT% 53.1 % (42.2-75.2); PLT 258 X1000 (130-400); RBC 2.79 XMIL (4.7-6.1); RDW 17.7 % (11.5-14.5); WBC 7.98 X1000 (4.8-10.8)
[2018-06-06] MEDS ORDERED: D50W 250 ML, AMINOSYN 15% 500 ML, LIPOSYN 20% 250 ML MISC SCH ×3 (08:15)
[2018-06-06] MEDS: ICAR-C PO SCH ×2 (08:51→20:19)
[2018-06-06] MEDS: NEXIUM PO SCH (08:51)
[2018-06-06] MEDS: NEPHRO-VITE PO SCH (08:51)
[2018-06-06] MEDS: COREG PO SCH ×2 (08:51→20:19)
[2018-06-06] MEDS: SINGULAIR PO SCH (08:51)
[2018-06-06] MEDS ORDERED: BREO ELLIPTA 200/25 MCG INH INH SCH (09:00)
[2018-06-06] MEDS ORDERED: SINGULAIR PO SCH (09:00)
[2018-06-06] MEDS ORDERED: NEXIUM PO SCH (09:00)
--- NOTE | 2018-06-06 10:56 | PROGRESS NOTE ---
DATE: 06/06/2018 SUBJECTIVE: This patient is resting comfortably in. He will go for dialysis today, we have been talking about rehab center placement for this patient as well. His dialysis catheter has been placed yesterday on the right side of his thorax. No acute events during the catheter placement. It looks like he was confused during the night but at this moment he is completely alert and oriented x3. No focal deficits. LABORATORY: WBC 7.9, hemoglobin 8.9, hematocrit 27.3, and platelets 258,000. Sodium 139, potassium 3.8, chloride 97, bicarbonate 30, BUN 63, creatinine 7.4, glucose 93, calcium 8.3, and albumin 2.2. ASSESSMENT AND PLAN: 1. Acute physical deconditioning and generalized weakness likely secondary to right lower lobe pneumonia, and history of end-stage renal disease. Continue with the same management. Likely, this patient will go to a rehab center. 2. Right lower lobe pneumonia, parapneumonic effusion. His procalcitonin level was 1.3, so likely this patient has an infectious process. Continue with antibiotics status post thoracentesis a few days ago, and 1.2 L of fluid has been removed. 3. History of COPD, continue breathing treatment not in exacerbation. 4. End-stage renal disease. This patient has been on peritoneal dialysis, but now we will start hemodialysis on this patient. Yesterday, we placed a tunnel dialysis catheter and today he will receive his first hemodialysis. 5. Hypertension. Continue with Coreg. 6. Anxiety. Continue with his home medications. 7. Gastroesophageal reflux disease, continue proton pump inhibitors. 8. Deep vein thrombosis prophylaxis with sequential compression devices. 9. Left hip pain. He is feeling better. I do not have any source of infection or pain or lesion at this moment. cc: Kedar Lin MD
--- NOTE | 2018-06-06 15:10 | NEPHROLOGY PROGRESS NOTE ---
DATE: 06/06/2018 TIME SEEN: 0820 hours. SUBJECTIVE: Mr. Delgado is resting quietly. He has a tunnel catheter to the right chest wall placed yesterday evening. Denies any pain or increased work of breathing. Some discomfort to his right ribs. OBJECTIVE: Vital Signs: Temperature 96.9 degrees, blood pressure 133/62, heart rate 60, respirations 18. He is on room air. Last recorded 99 saturation. He has had 450 in, 1191 out. PHYSICAL EXAMINATION: General: This is a 72-year-old white male. He is currently resting in bed in no acute distress, although he appears chronically ill. Skin: Warm and dry. HEENT: Normocephalic, atraumatic. Conjunctivae pale. He has ERIC. Mucous membranes dry. Neck: Supple. Trachea midline. No JVD. Cardiovascular: Regular rate and rhythm. He is without murmur or gallop. Lungs: Clear to auscultation bilaterally. Equal excursion on room air. Abdomen: Large, round, soft, nontender. Positive bowel sounds. Peritoneal dialysis catheter remains dry and intact without redness or drainage. Genitourinary: Not inspected. Minimal void with dialysis assist. Extremities: Have trace pretibial edema. No clubbing or cyanosis. Neurological: Alert and oriented to person and to place only. LABS: Sodium 139, potassium 3.8, chloride 97, CO2 30. BUN 63, creatinine 7.4, glucose 93, anion gap of 12, calcium 8.3, phosphorus 5.9, albumin 2.2. White count 7.98, hemoglobin 8.9, hematocrit 27.3, with a platelet count of 258. ASSESSMENT AND PLAN: 1. Chronic kidney disease stage 5 D. The patient has had a tunneled dialysis catheter placed for hemodialysis. We will plan dialysis today. He will be placed on a 3 potassium bath. We will dialyze him for 3-1/2 hours. We will attempt to pull 1 liter of ultrafiltration as tolerated. 2. Electrolytes and acid-base balance, again with correction on dialysis. 3. Anemia. This remains low, but stable. 4. Leukocytosis. The patient is currently on renal-dosed antibiotics. I would like to thank you for allowing us to follow with this patient. Dictated by RASHMI Brandon for Quintin Hernandez MD Face to face encounter, data reviewed, discussed with Susie Cruz on 06/07/18. I agree with the above assessment and plan of care. cc: RASHMI Brandon MD [facility]
[2018-06-06] MEDS: MAXIPIME 0.5 GM in NS 50 ML IV SCH (16:53)
[2018-06-06] MEDS ORDERED: VANCOMYCIN 1 GM/NS 1 GM/250 ML IVPB IV ONE (17:00)
[2018-06-06] MEDS: REMERON PO SCH (20:19)
[2018-06-07] MEDS: ATROVENT NEB INH SCH ×4 (05:00→21:40)
[2018-06-07 07:15] LABS: HEMATOCRIT 28.3 % (42.0-52.0)
[2018-06-07 07:41] LABS: ALBUMIN 2.6 g/dL (3.5-5.0); CALCIUM 8.6 mg/dL (8.8-10.2); POTASSIUM 3.7 mmol/L (3.5-5.1)
--- NOTE | 2018-06-07 07:41 | Diag Imaging Result Doc PS360 ---
EXAM: CHEST-1 VIEW HISTORY: SOB TECHNIQUE: Portable chest single view COMPARISON: 06/05/2018 FINDINGS: There is a small to moderate-sized right-sided pleural effusion. The right lung is better expanded with decreased atelectasis on the current study. There is also decreased pulmonary edema. Heart remains enlarged. There is a right jugular line on the current exam. Tip overlies the right atrium. No pneumothorax. IMPRESSION: Mild interval improvement. Electronically signed by Monster Foley 06/07/2018 7:39 AM
[2018-06-07 07:48] LABS: CREATININE 5.3 mg/dL (0.7-1.2)
--- NOTE | 2018-06-07 08:13 | NEPHROLOGY PROGRESS NOTE ---
DATE: 06/07/2018 TIME SEEN: 0638 hours. SUBJECTIVE: Mr. Delgado is resting quietly in bed. He is more awake and alert today, more interactive. OBJECTIVE: Vital Signs: Temperature 97.9 degrees, blood pressure 155/51, heart rate 73, respirations 18. He is on room air. Last recorded saturation 98%. He has had 0 recorded in with 2289 out per dialysis. General: On physical exam, this is a 72-year-old white male resting quietly in bed, appears chronically ill, no acute distress. Skin: Warm and dry. HEENT: Normocephalic, atraumatic. Conjunctivae pale. He has ERIC. Mucous membranes dry. Neck: Supple. Trachea midline. No JVD. Cardiovascular: Regular rate and rhythm without murmur or gallop. Lungs: Clear to auscultation bilaterally. Equal excursion on room air. Abdomen: Large, round, soft, nontender. Positive bowel sounds. Peritoneal dialysis catheter is dry and intact without redness or drainage. Tunneled catheter to the right chest wall. Genitourinary: Not inspected. Minimal void with dialysis assist. Extremities: Have trace pretibial edema. No clubbing or cyanosis. Neurological: Alert and oriented to person and to place. LABS: Currently pending this a.m. Previous potassium 3.8 with a hemoglobin of 8.9. ASSESSMENT AND PLAN: 1. Chronic kidney disease stage 5 D. The patient is now on hemodialysis. No indications for intervention today. We will plan for dialysis in the a.m. if he is still in the hospital. 2. Electrolytes, acid-base balance and anemia. These have all been stable with labs pending this morning. 3. Leukocytosis. The patient is currently on renal-dosed antibiotics followed by the primary care. I would like to thank you for allowing us to follow with this patient. Dictated by RASHMI Brandon for Quintin Hernandez MD Face to face encounter, data reviewed, discussed with Susie Cruz on 06/07/18. I agree with the above assessment and plan of care. cc: RASHMI Brandon MD [facility]
[2018-06-07] MEDS: NEPHRO-VITE PO SCH (09:44)
[2018-06-07] MEDS: NEXIUM PO SCH (09:44)
[2018-06-07] MEDS: ICAR-C PO SCH ×2 (09:44→20:22)
[2018-06-07] MEDS: COREG PO SCH ×2 (09:44→20:22)
[2018-06-07] MEDS: SINGULAIR PO SCH (09:45)
[2018-06-07] MEDS: BREO ELLIPTA 200/25 MCG INH INH SCH (10:35)
--- NOTE | 2018-06-07 10:47 | PROGRESS NOTE ---
DATE: 06/07/2018 SUBJECTIVE: This patient is resting comfortably in bed. He had his first hemodialysis yesterday. The plan is to go ahead and get a new hemodialysis tomorrow. I already talked to the rehab center placement and they are planning to take this patient either today or tomorrow. I think he is stable for discharge. LABORATORY: Hemoglobin 9, hematocrit 28.3. Sodium 140, potassium 3.7, chloride 99, bicarbonate 29, BUN 47, creatinine 5.3, glucose 95. Calcium 8.6, albumin 2.6. ASSESSMENT AND PLAN: 1. Acute physical deconditioning and generalized weakness, likely secondary to right lower lobe pneumonia and history of end-stage renal disease. Continue with the same management, pending rehab center placement. 2. Right lower lobe pneumonia, parapneumonic effusion. His procalcitonin level was 1.3, so probably this patient has an infectious process. Continue with antibiotics, status post thoracentesis a few days ago and 1.2 L of fluid has been removed. 3. History of chronic obstructive pulmonary disease. Continue with breathing treatment. COPD is not in exacerbation. 4. End-stage renal disease. Continue with hemodialysis as scheduled. 5. Hypertension. Continue with Coreg. 6. Anxiety. Continue with his home medications. 7. Gastroesophageal reflux disease, continue proton pump inhibitors. 8. Deep vein thrombosis prophylaxis with sequential compression devices. 9. Left hip pain. This is getting better. DISPOSITION: The patient is stable. Once I have placement for this patient, I will discharge him. cc: Kedar Lin MD
[2018-06-07 12:52] LABS: HEPATITIS PROFILE ACUTE SEE COMMENTS
[2018-06-07] MEDS: MAXIPIME 0.5 GM in NS 50 ML IV SCH (17:01)
[2018-06-07] MEDS: REMERON PO SCH (20:22)
[2018-06-07] MEDS: TYLENOL PO PRN (22:07)
[2018-06-08] MEDS: ATROVENT NEB INH SCH ×2 (03:44→09:29)
[2018-06-08] MEDS ORDERED: TIGHT: 0.2 ML/HR FOR DIALYSIS MISC PRN (05:26)
[2018-06-08] MEDS ORDERED: NS 2,000 ML MISC PRN (05:26)
[2018-06-08] MEDS ORDERED: HEPARIN IV PRN (05:26)
[2018-06-08 06:44] VITALS: BP 131/62
[2018-06-08] MEDS ORDERED: SORBITOL PO PRN (07:36)
[2018-06-08] MEDS: SINGULAIR PO SCH (08:42)
[2018-06-08] MEDS: NEPHRO-VITE PO SCH (08:43)
[2018-06-08] MEDS: NEXIUM PO SCH (08:43)
[2018-06-08] MEDS: ICAR-C PO SCH (08:43)
[2018-06-08] MEDS: COREG PO SCH (08:43)
[2018-06-08] MEDS: BREO ELLIPTA 200/25 MCG INH INH SCH (09:30)
[2018-06-08] MEDS ORDERED: CATHFLO IV ONE (10:38)
[2018-06-08] MEDS ORDERED: STERILE WATER INJ. INJ ONE (10:38)
--- NOTE | 2018-06-08 12:42 | NEPHROLOGY PROGRESS NOTE ---
DATE: 06/08/2018 TIME SEEN: 0655. SUBJECTIVE: Mr. Delgado is resting quietly in bed. He states that he is feeling better. OBJECTIVE: Vital Signs: Temperature 97.5 degrees, blood pressure 156/46, heart rate 66 respirations 20, he is on room air, last recorded saturation 98% Intake and output: He has had 500 in. He has had 0 out. General: This is a 72-year-old white male, resting quietly in bed, in no acute distress. Skin: Warm and dry. HEENT: Normocephalic, atraumatic. Conjunctivae are pale pink. ERIC. Mucous membranes dry. Neck: Supple. Trachea midline. No JVD. Cardiovascular: Regular rate and rhythm without murmur or gallop. Lungs: Clear to auscultation bilaterally with equal excursion on room air. Abdomen: Soft, large, round, nontender. Positive bowel sounds. PD catheter remains dry and intact without redness or drainage. Chest: Tunneled catheter remains to the right chest wall. Genitourinary: Not inspected. Minimal void with dialysis assist. Extremities: Trace pretibial edema. No clubbing or cyanosis. Neurological: He is alert and oriented to person, place, and most recent events. DIAGNOSTIC STUDIES: Labs have not been drawn today. They have stuck him multiple times. We have requested that they stop and hold at this time. Previous potassium 3.7. Hemoglobin of 9. ASSESSMENT AND PLAN: 1. Chronic kidney disease, stage 5D. The patient is due for routine dialysis treatment today. We will place him on a 2 K bath. He is to dialyze for 3-1/2 hours. We will attempt to pull 2 L of ultrafiltration. 2. Electrolytes, acid-base balance, and anemia. These have all been fairly acceptable. 3. Leukocytosis. He has been on renal-dosed antibiotics, followed by the primary care team. I would to thank you for allowing us to follow with this patient. [id number] encounter. Data reviewed and discussed with Becki Cruz. I agree with the above assessment and plan of care. RG Dictated by RASHMI Brandon for Quintin Hernandez MD cc: RASHMI Brandon MD [facility]
[2018-06-08] MEDS: KLONOPIN PO PRN (13:10)
[2018-06-08] MEDS: NORCO-10 PO PRN (14:18)
--- NOTE | 2018-06-08 16:21 | DISCHARGE SUMMARY ---
ADMISSION DATE: 05/30/2018 DISCHARGE DATE: 06/08/2018 DISCHARGE DIAGNOSES: 1. Acute physical deconditioning and generalized weakness secondary to right lower lobe pneumonia and history of end-stage renal disease. 2. Right lower lobe pneumonia with parapneumonic effusion status post thoracentesis, resolved. 3. Pleural effusion. 4. History of chronic obstructive pulmonary disease (COPD), not in exacerbation. 5. End-stage renal disease, on hemodialysis. 6. Hypertension. 7. Anxiety. 8. Gastroesophageal reflux disease (GERD). 9. Deep vein thrombosis (DVT). 10. Left hip pain. HOSPITAL COURSE: A 72-year-old male with a past medical history of CKD on peritoneal dialysis, hypertension, COPD, and peripheral vascular disease. The patient was admitted on 05/30/2018. He states that over the past several days he has had worsening weakness to the point that he was unable to get up out of the chair without assistance. The patient states that he was initially using a walker, though was unable to ambulate with this, either, and does not have access to the wheelchair at this time. He states that when he initially stood from a sitting position he felt dizzy. He denied any headache. He does report some intermittent chest pain that has been going on for at least 1 month and shortness of breath as well, mainly upon exertion. He has been having dry cough, but no fever, chills, or body aches. The patient reported that he had he had a fall back on 05/08/2018. He was diagnosed with some rib fracture on the right side and he is still having some pain to palpation. He denied any abdominal pain, nausea/vomiting, or diarrhea. He has been having some constipation. No hematochezia or melena. He was recently discharged from our facility on 05/24/2018. During this admission, he was treated for a large right pleural effusion status post right thoracentesis, fluid volume overload, as well as possible pneumonia. The patient was given some antibiotics. In the ER, the patient had a temperature 97.6, heart rate 56, respiratory rate 18, blood pressure 118/61, oxygen saturation 90% on room air. He had a leukocytosis of 12.9. Chest x-ray showed right pleural effusion and probably pneumonia. He was admitted to the medical floor with telemetry. Nephrology Department was consulted to continue dialyzing this patient through peritoneal dialysis. Due to his pleural effusion and possible pneumonia, we consulted also Pulmonary Department for evaluation, and they have decided to do a thoracentesis, where 1.2 L of fluid has been removed. At some point of his hospitalization, this patient was anemic at 6.9, and he received 2 units of PRBCs. After that, the hemoglobin has been stable. The patient discussed with Dr. Hernandez about his dialysis, and they decided to go ahead and switch from peritoneal dialysis to hemodialysis. A tunnelled catheter has been placed, and he received so far 2 dialyses in this center. The patient's cough was improving on a daily basis. He was placed initially on cefepime and Zyvox, and then the Zyvox was stopped and placed on vancomycin. He has been getting antibiotics since admission. No fever, no chills, and no cough so I do not think we need to continue with antibiotics. He received at least 9 days of treatment. Chest x-ray is still showing some right pleural effusion and mild pulmonary edema which I believe is going to get better after getting more rounds of dialysis. This patient is still weak, and he requested to go to a rehabilitation center. He has been complaining of left hip pain but is not painful to palpation or mobilization; it is only when he coughs. I am not quite sure about this, though. The patient will be discharged to a rehabilitation center. He will continue with dialysis as scheduled, follow up with his primary care doctor in 3 to 4 weeks. I am not going to continue with antibiotics; I do not think this patient has a current infection at this moment. At the moment of discharge, the patient was in a stable medical condition, tolerating p.o., and ambulating with assistance. OBJECTIVE: Vital Signs: Temperature 97.5, pulse 62, respiratory rate 17, blood pressure 156/46, oxygen saturation 96% on room air. HEENT: Head normocephalic. No trauma. PERRLA. Neck: Supple. No JVD. No masses. Central trachea. Chest: Clear to auscultation. No wheezing. No rales. Abdomen: Soft, nontender, nondistended. No hepatosplenomegaly. He has a peritoneal dialysis catheter in place. Extremities: No edema. No clubbing. No cyanosis. Neurological: Alert and oriented x3. No focal deficits. DIAGNOSTIC STUDIES: Hemoglobin 9, hematocrit 28.3. Sodium 140, potassium 3.7, chloride 99, bicarbonate 29, BUN 47, creatinine 5.3, glucose 85, calcium 8.6, albumin 2.6. This laboratory was done on 06/07/2018. DISCHARGE MEDICATIONS: Singulair 10 mg p.o. daily. Remeron 30 mg p.o. at bedtime. Icar C 1 tablet p.o. b.i.d. Atrovent nebulizer 0.5 mg inhaler q.6 h. Lauren-Clovis tablet 0.8 mg p.o. daily. Breo Ellipta 200/25 mcg 1 puff inhaler daily. Nexium 40 mg p.o. daily. ProAir HFA 2 puffs inhaler q.4 h. as needed for shortness of breath. Hillister 10 one tablet p.o. q.6 h. as needed. Klonopin 0.4 mg p.o. b.i.d. as needed for anxiety. Coreg 6.25 mg p.o. b.i.d. DuoNeb 3 mL inhaler q.4 h. as needed for shortness of breath. Acetaminophen 650 mg p.o. q.6 h. for fever as needed. COORDINATION TIME: Time discharging this patient 35 minutes. cc: Kedar Lin MD
[2018-06-08] MEDS ORDERED: VANCOMYCIN 1 GM/NS 1 GM/250 ML IVPB IV ONE (17:00)
== END 2018-06-08 16:00 | DRG 673 ==
LOC: SUPCPDRO → ED 20:42 → SUATTDRO 05-30 02:14 → EDIPHOLD 05-30 02:14 → 3N 05-30 21:21
PROVIDERS: ATTEND Internal Medicine
CPT/HCPCS: 32421; 32555; 36430; 71010; 71020; 71045; 71046; 77001; 80048; 80069; 80074; 80202; 81001; 81050; 82550; 82575; 82805; 82945; 82948; 83615; 83735; 83986; 84145; 84156; 84157; 84484; 85014; 85018; 85025; 85610; 85730; 86850; 86900; 86901; 86920; 87040; 87070; 87275; 87276; 87804; 88112; 88305; 89051; 93005; 94640; 94760; 94761; 94799; 96365; 96366; 96367; 97110; 97162; 97166; 97530; 97535; 99285; A9270; C1750; J0692; J1644; J2020; J2997; J3370; J7030; J7040; J7050; P9016; XXXXX

== ENCOUNTER 2018-09-08 07:51 | Inpatient (IN) ==
--- NOTE | 2018-09-08 08:33 | PROVIDER DOCUMENTATION ---
HPI-General Adult - General Chief Complaint: Abnormal Lab[s] Stated Complaint: LOW BLOOD COUNT Time Seen by Provider: 09/08/18 08:16 Source: patient Allergies/Adverse Reactions: Patient Allergies Allergy/AdvReac Type Severity Reaction Status Date / Time meperidine HCl * Allergy makes me Verified 09/08/18 08:38 [From Demerol] crazy Home Medications: Home Medication List Medication Instructions Recorded Confirmed Last Taken Type Albuterol Sulfate [Proair Hfa] 2 puff INH Q4H PRN PRN 01/08/15 05/30/18 05/29/18 History Esomeprazole [Nexium] 40 mg PO DAILY 05/20/18 05/30/18 05/30/18 History Fluticasone/Vilant 200/25 INH 1 puff INH DAILY 05/20/18 05/30/18 05/29/18 History [Breo Ellipta 200/25 Mcg INH] Folic Acid/Vit Bcomp,C [Lauren-Clovis 0.8 mg PO DAILY 05/20/18 05/30/18 05/29/18 History Tablet] Ipratropium [place] Neb [Atrovent 0.5 mg INH RTQ6H 05/20/18 05/30/18 05/29/18 History Neb] Mirtazapine [Remeron] 30 mg PO HS 05/20/18 05/30/18 05/28/18 History Montelukast Sodium [Singulair] 10 mg PO DAILY 05/20/18 05/30/18 05/29/18 History Iron Carbonyl/Ascorbic Acid 1 each PO BID #60 tablet 05/24/18 05/30/18 05/29/18 Rx [Icar-C] Acetaminophen [Tylenol] 650 mg PO Q6H PRN PRN tablet 06/08/18 Unknown Rx Albuterol 2.5MG/Ipratrop 0.5MG 3 ml INH Q4H PRN PRN neb 06/08/18 Unknown Rx [Duoneb (A & A)] Carvedilol [Coreg] 6.25 mg PO BID tablet 06/08/18 Unknown Rx Clonazepam [Klonopin] 0.5 mg PO BID PRN PRN tablet 06/08/18 Unknown Rx Fluticasone/Vilant 200/25 INH 1 puff INH RTDAILY inhaler 06/08/18 Unknown Rx [Breo Ellipta 200/25 Mcg INH] Hydrocodone/APAP 10 mg/325 mg 1 each PO Q6H PRN PRN tablet 06/08/18 Unknown Rx [Temple-10] - History of Present Illness -Gen Adult Nature of Presenting Problems: I spoke to dr Ruiz about 08:15. Pt was supposed to go over to [facility] for admission for GI bleed workup admission w. transfusion and dialysis as needed. Pt came t [facility] instead as is attached to dr Rioc. Was admitted x 8 weeks in May, 2018. Scoped for GI bleed that admission with 2 upper GI bleeds found and addressed.Pt deneis any pain. Review of Systems - Adult - REVIEW OF SYSTEMS - ADULT Constitutional: reports: no symptoms reported, fatique. denies: chills, fever Eyes: reports: no symptoms reported Ears, Nose, Mouth & Throat: reports: no symptoms reported Cardiovascular: reports: no symptoms reported. denies: chest pain Respiratory: reports: no symptoms reported. denies: dyspnea on exertion Gastrointestinal: reports: no symptoms reported Genitourinary: reports: no symptoms reported Musculoskeletal: reports: no symptoms reported Integumentary: reports: no symptoms reported Neurological: reports: no symptoms reported Psychiatric: reports: no symptoms reported Endocrine: reports: no symptoms reported Hematologic/Lymphatic: reports: no symptoms reported Allergic/Immunologic: reports: no symptoms reported All Other Systems: Reviewed and Negative Past History - Adult - PAST MEDICAL HISTORY-ADULT Review of Records: reports: Nursing Assessment Review, Medications Reviewed, Social history reviewed & non-contributory. Major Childhood Illnesses: reports: denies history Cardiovascular: reports: CAD, HTN Respiratory: reports: asthma, COPD Gastrointestinal: reports: cancer (colon) Obstetrical/Gynecological: reports: denies history Genitourinary: reports: cancer (bladder), dialysis, kidney disease Musculoskeletal: reports: denies history Neurological: reports: denies history Endocrine/Immune: reports: denies history Other Conditions: reports: denies history - PRIOR SURGERIES/PROCEDURES Surgical/Procedure History: reports: appendectomy, bowel surgery (colon resection), other (aaa) - IMMUNIZATION STATUS Childhood Immunizations: See Nurse Assessment Flu Vaccine: See Nurse Assessment - FAMILY HISTORY Family History: reviewed, not pertinent Physical Exam-General - PHYSICAL EXAM-ADULT Initial Vital Signs Reviewed: Yes - CONSTITUTIONAL General Appearance: appears well, alert, other (pale) - EYES Eyes: PERRL/EOMI, pink conjunctivae - HEAD, EARS, NOSE, MOUTH & THROAT HENMT: normocephalic/atraumatic, moist mucous membranes - NECK Neck: non-tender, full range of motion, supple - RESPIRATORY Respiratory: chest non-tender, lungs clear, normal breath sounds - CARDIOVASCULAR Cardiovascular: regular rate, rhythm, no edema, no gallop, no murmur - GASTROINTESTINAL (ABDOMEN) Abdominal Exam: normal bowel sounds, non tender, soft - MUSCULOSKELETAL Back Exam: normal inspection Extremity: normal range of motion, non-tender, normal gait, no pedal edema, no calf tenderness - SKIN Integumentary: normal turgor, warm/dry, pallor - NEUROLOGIC Neurologic: 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 technologist II-XII nml as tested, grossly normal, no motor/sensory deficits - PSYCHIATRIC Psych/Mental Status: normal mood/affect, normal thought content, normal thought process, oriented x 3 Progress - PLAN OF CARE/RESULTS Progress/Plan/Lab Results: Vital Signs - 8 hr 09/08/18 07:56 Temperature 97.4 F L Pulse Rate 84 Respiratory Rate 20 Blood Pressure 144/83 O2 Sat by Pulse Oximetry 97 Orders Category Date Time Status CBC WITH ELECTRONIC DIFF [HEME] Stat Lab 09/08/18 08:16 Ordered COMPREHENSIVE METABOLIC PANEL [CHEM] Stat Lab 09/08/18 08:16 Ordered OCCULT BLOOD SCREEN STOOL PL Stat Lab 09/08/18 08:12 Uncollected PROTIME WITH INR [COAG] Stat Lab 09/08/18 08:16 Ordered PTT [COAG] Stat Lab 09/08/18 08:16 Ordered TYPE & SCREEN [BBK] Stat Lab 09/08/18 08:16 Ordered GI Bleed (possible) Stat Oth 09/08/18 08:11 Ordered Result Diagrams: 09/08/18 08:28 09/08/18 08:28 - CONSULTS/PCP/HOSPITALIST Notification #1 *Consult/PCP/Hospitalist*: dr BRITT Time Discussed: 08:57 ([facility] admission to dr Elias) Consult Disposition: other (ADMIT OVER AT [facility]) Departure - Departure Date of Disposition Decision: 09/08/18 Time of Disposition Decision: 08:58 DIAGNOSIS: Anemia, GI bleeding, CKD (chronic kidney disease) requiring chronic dialysis Disposition: ADMITTED INPATIENT 09 Certified Medical Emergency: Emergent Condition: Stable - Critical Care Note This patient required my direct & personal management of CC.: No Attestation - Physician/ EVELIN Attestation The physician spent face to face time with patient:: Yes Advanced Practice Provider documentation review:: Supervising physician onsite and consulted in the evaluation and care of this patient. The physician did have a face to face encounter with the patient.
[2018-09-08 08:52] LABS: WBC 6.59 X1000 (4.8-10.8)
[2018-09-08 08:53] LABS: BASO# 0.01 X1000 (0.0-0.2); BASO% 0.2 % (0.0-0.8); EOS# 0.44 X1000 (0.0-0.7); EOS% 6.7 % (0.0-10.0); HEMATOCRIT 21.3 % (42.0-52.0); HEMOGLOBIN 6.6 g/dL (14.0-18.0); IMM GRAN# 0.03 X1000 (0.0-0.04); IMM GRAN% 0.5 % (0.0-0.5); LYMPH# 1.24 X1000 (1.2-3.4); LYMPH% 18.8 % (20.5-51.1); MCH 31.6 PG (27-31); MCV 101.9 FL (81-99); MONO# 0.67 X1000 (0.11-0.59); MONO% 10.2 % (1.7-9.3); NEUT% 63.6 % (42.2-75.2); PLT 376 X1000 (130-400); RBC 2.09 XMIL (4.7-6.1); RDW 16.5 % (11.5-14.5)
[2018-09-08 09:02] LABS: OCCULT BLOOD 1 POSITIVE (NEGATIVE)
[2018-09-08] MEDS ORDERED: TYLENOL PO PRN (09:12)
[2018-09-08] MEDS ORDERED: ZOFRAN IV PRN (09:12)
[2018-09-08 09:29] LABS: INR 0.96; PROTIME 13.3 Seconds (11.0-16.0); PTT 34.4 Seconds (22.3-41.8)
[2018-09-08] MEDS: CARAFATE LIQUID PO SCH ×2 (09:30→14:56)
[2018-09-08] MEDS ORDERED: PROTONIX 80 MG in NS 80 ML IV SCH (09:30)
--- NOTE | 2018-09-08 09:34 | Diag Imaging Result Doc PS360 ---
EXAM: CT ABDOMEN/PELVIS W/O CONTRAST - 09/08/2018 HISTORY: gastrointestinal bleed TECHNIQUE: CT abdomen/pelvis without contrast. No contrast administered per request of the referring provider. COMPARISON: None. FINDINGS: Images of the base of chest show bilateral pleural effusions. There is some associated compressive/dependent atelectasis at the posterior right base. There are no substantial abnormalities of the liver, spleen, adrenal glands, or pancreas identified. There are a few small calcified gallstones in gallbladder. There is no pericholecystic inflammation seen. The bilateral kidneys appear mildly atrophic. There are nonspecific small retroperitoneal lymph nodes. There are renal artery atherosclerotic calcifications noted. There is no renal stone versus identified. There is an abdominal aortic aneurysm repair endograft present. The aorta measures up to 3 cm in diameter. There is no evidence of retroperitoneal hematoma. There is no evidence of bowel obstruction. The appendix by history is surgically absent. There is no substantial bowel wall thickening identified. There are postsurgical changes at the rectosigmoid junction. There is no evidence of diverticulitis. There is a peritoneal dialysis catheter with its distal end coiled at the mid to upper pelvis. There is no abscess identified. There is no free air or substantial free fluid identified.. IMPRESSION: Bilateral pleural effusions. A few small calcified gallstones in the gallbladder. No pericholecystic inflammation. No other visible acute abnormality in the abdomen or pelvis. No evidence of diverticulitis. This exam was performed using automated exposure control, adjustment of mA or kV according to patient size, and/or use of iterative reconstruction technique. Electronically signed by Vijay Latif 09/08/2018 9:32 AM
[2018-09-08 09:40] LABS: AGAP 10; ALKALINE PHOSPHATASE 104 U/L (32-122); BUN 17 mg/dL (8-22); CALCIUM 7.9 mg/dL (8.8-10.2); CHLORIDE 101 mmol/L (98-107); COSMO 282; ESTIMATED GFR 15; GLUCOSE 116 mg/dL (70-104); GOT 13 U/L (10-34); GPT < 5 U/L (10-44); POTASSIUM 3.1 mmol/L (3.5-5.1); SODIUM 140 mmol/L (136-145); TCO2 28 mmol/L (25-35); TOTAL PROTEIN 6.5 g/dL (6.3-8.3)
[2018-09-08] MEDS: DUONEB (A & A) INH SCH ×3 (09:46→21:45)
[2018-09-08 10:10] LABS: IRON SATURATION 25 %; TIBC 136 ug/dL; TOTAL IRON 34 ug/dL (53-167); UNBOUND IRON 102 ug/dL (112-346)
--- NOTE | 2018-09-08 12:22 | HISTORY AND PHYSICAL ---
PRIMARY CARE PHYSICIAN: Dr. Azam Rico CATCHER HELPER: Dr. Hernandez CHIEF COMPLAINT: Shortness of breath, black stools. HISTORY OF PRESENT ILLNESS: Mr. Milton Delgado is a 72-year-old male with a medical history of end stage renal disease, had been on peritoneal dialysis, now on hemodialysis on Tuesday, and Tuesday, also with history of COPD. He is now here with continued complaints of shortness of breath and black stools. Dr. Hernandez sent him here as he continues to have a low hemoglobin and hematocrit, yesterday at 6.1 and today is 6.6. The patient states his only symptom is shortness of breath. Otherwise, he feels good. We will do an admission, consult Gastroenterology. Further reviewing his history, he has been in the hospital since 05/2018. He got out in 06/2018, but he was at [facility], at [facility], at [facility] and then some time in 06/2018 when he was at [facility], he had an EGD performed, and per the , there were 2 spots in the upper intestines that had to be cauterized. She said it was not in the stomach, it was in the upper intestines. Since discharge in 06/2018, he has had to have a blood transfusion 2 weeks ago, and now he is back again for blood transfusion. Denies being on any blood thinners. Denies taking anything that would increase risk for bleeding. He is on iron supplementation. We will consult Dr. Hernandez. We will consult Dr. Velarde. We will start the patient on Protonix drip and some Carafate, clear liquids, give 2 units of blood and transfer him over to [facility] for further care. PAST MEDICAL HISTORY: 1. End stage renal disease, was on peritoneal dialysis, currently on hemodialysis on Tuesday, and Tuesday via a right tunneled dialysis catheter. 2. Hypertension. 3. COPD. 4. Peripheral vascular disease. 5. BPH with history of lower tract obstruction. 6. Anxiety. 7. GI bleed. 8. Iron deficiency anemia. 9. Multiple blood transfusions over the past year in 2019. 10.Probable peptic ulcer disease, 2 areas of cauterization in the upper intestinal tract in 06/2018. PAST SURGICAL HISTORY: 1. EGD with cauterization in 2 locations of the upper intestinal tract in 06/2018 at [facility]. 2. Left knee replacement. 3. Right hemodialysis catheter placement. 4. AAA repair. 5. Colon resection. 6. Ostomy placed and ostomy takedown. 7. Peritoneal dialysis catheter, which I believe they are wanting to have that taken out soon. 8. Appendectomy. 9. Tonsillectomy. 10.Recent right thoracentesis for right pleural effusion performed by Dr. Bah. SOCIAL HISTORY: Quit smoking over 15 years ago. Prior to that, he was a half pack per day smoker for 20 years. Denies alcohol or illicit drug use. 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 FAMILY HISTORY: Mother with congestive heart failure. Father with prostate cancer. ALLERGIES: Demerol. HOME MEDICATIONS: They are not verified yet. Waiting for medications to be verified. REVIEW OF SYSTEMS: A 14-point review of systems are complete, and all are negative except for those mentioned in the above HPI. PHYSICAL EXAMINATION: VITAL SIGNS: Temperature is 97.4, heart rate 67, respiratory rate 16, blood pressure 144/83, O2 saturation is 97% on room air. GENERAL: Mr. Milton Delgado is a 72-year-old male. He is in no acute distress. He is able to answer questions appropriately. HEENT: Atraumatic and normocephalic. Pupils equal, round and reactive to light. Extraocular movements were intact. Mucous membranes are dry. Sclerae pale. NECK: Trachea midline. CARDIOVASCULAR: S1, S2. Regular rate and rhythm. No rubs, gallops or murmurs. No lower extremity edema. Plus 2 dorsalis and radial pulses. Negative JVD or carotid bruits. PULMONARY: Clear to auscultation with bilateral breath sounds. No accessory muscle use or work of breathing noted. GASTROINTESTINAL: Soft, nontender and nondistended. Positive bowel sounds x4. EXTREMITIES: Moves all extremities equally with full range of motion. NEUROLOGICAL: Alert and oriented x3. Follows commands. Sensory is intact. SKIN: Warm, dry, intact, but pale. DIAGNOSTIC DATA: White blood cells are 6000, hemoglobin 6.6, hematocrit 21.3, platelet count 376. INR is 0.96. PTT is 34.4. Sodium 140, potassium 3.1, BUN is 17, creatinine 4.0, glucose 116, calcium 7.9, bilirubin 0.40, AST is 13, ALT is less than 5, albumin 3. Stool study positive for blood. IMAGING: Abdominopelvic CT with impression showing bilateral pleural effusions, a few small calcified gallstones in the gallbladder but no pericholecystic inflammation. No other visible acute abnormality in the abdomen or pelvis. No evidence of diverticulitis. ASSESSMENT AND PLAN: 1. Upper gastrointestinal bleeding, likely from peptic ulcer disease. According to the , he had an EGD in 06/2018 at [facility] where 2 areas were cauterized. We are attempting to get that information. But there have been multiple transfusions over the past year. Reviewing how many transfusions he has actually had to have, he has had maybe what looks like 11 units of blood, and he also apparently had to have blood at [facility] as well on 3 separate occasions according to the . So he has had to have multiple blood transfusions. I would not doubt if he did not have some antibodies that started to build up. We will consult Dr. Velarde to reevaluate the patient. Again, he will be on a Protonix drip. We will do serial hemoglobin and hematocrit and Carafate. He is on clear liquids. 2. Iron deficiency anemia. He had iron transfusion yesterday during his hemodialysis. Iron studies have been ordered, but these may be off since he had to have iron yesterday. Other blood, stools, all of that has been ordered, and the blood in the stool is positive. But he is stable with his hemodynamics, vitals are completely stable, and his only sign and symptom of blood loss is shortness of breath. 3. Chronic blood loss anemia. Please see numbers 1 and 2. 4. End stage renal disease. Receives hemodialysis on Tuesday, and Tuesday via hemodialysis catheter. He still has his peritoneal dialysis catheter and is requesting about that getting removed. Dr. Hernandez has been consulted. 5. Chronic obstructive pulmonary disease. Nebulizers ordered. No signs of symptoms of exacerbation. 6. Bilateral pleural effusions. He has had a history of having to have thoracentesis in the past, but there is no sign of respiratory distress at this time. Likely being better controlled since he has been receiving hemodialysis. 7. Hypertension. Waiting for home medications to be verified. 8. Benign prostatic hypertrophy. Noted. 9. Anxiety. Again, still waiting on home medications to be verified. 10.DVT prophylaxis with SCDs. Dictated by RASHMI Barajas for Michael Farnsworth MD Addendum: Patient seen and examined by myself. Agree with RASHMI note. It reflects my assessment and plan. Patient is being admitted to hospital for GI bleeding so will transfuse 2 units of blood, will consult GI and will transfer him to [facility] and monitor patient closely. cc: RASHMI Barajas MD [facility]
[2018-09-08 15:42] LABS: FERRITIN 771 ng/mL (30-400)
[2018-09-08] MEDS ORDERED: NS 500 ML IV SCH (15:45)
[2018-09-08] MEDS ORDERED: DIPRIVAN 1% ONE (15:53)
[2018-09-08] MEDS ORDERED: XYLOCAINE-MPF 2% ONE (15:53)
[2018-09-08] MEDS ORDERED: ZOFRAN ONE (16:34)
[2018-09-08] MEDS ORDERED: ROBINUL ONE (16:34)
[2018-09-08] MEDS ORDERED: NEO-SYNEPHRINE ONE (16:36)
[2018-09-08] MEDS ORDERED: SODIUM CHLORIDE 0.9% 10 ML ONE (16:36)
--- NOTE | 2018-09-08 17:46 | NEPHROLOGY CONSULTATION ---
DATE: 09/08/2018 REASON FOR CONSULTATION: Assistance with management in patient with end-stage renal disease and gastrointestinal bleeding. HISTORY OF PRESENT ILLNESS: Mr. 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 He also has hypertension, COPD. He is on peritoneal dialysis but now is on hemodialysis but has been dealing with intermittent GI bleeding for months. He has had endoscopies performed at other facilities and has had upper endoscopy with cauterization. He has ongoing black stool, and his hemoglobin was below 6 today so we had him come to the hospital for admission, transfusion and GI evaluation. No chest pain or palpitations. His appetite is acceptable. When he is transfused, his energy level is good. No chest pain, palpitations, etc. PAST MEDICAL HISTORY: As above. HOME MEDICATIONS: Include albuterol, esomeprazole, fluticasone, ipratropium, mirtazapine, acetaminophen, albuterol. ALLERGIES: Meperidine. SOCIAL HISTORY: He is and lives with his . No alcohol or tobacco. FAMILY HISTORY: Noncontributory. PHYSICAL EXAMINATION: Vital Signs: Blood pressure 185/56, heart rate 82, respirations 20, afebrile. General: No acute distress. Skin: Pale and dry. Conjunctivae are pink. Pupils are equal. Oropharynx is clear. Normal tongue. Normal teeth. Neck: Supple. Trachea is midline. Neck veins are not distended. Heart: PMI is nondisplaced. Regular rate and rhythm without gallops, murmurs, rubs. Lungs: Have equal excursion, equal breath sounds. No crackles or wheezes. No accessory muscle use or retractions. Abdomen: Soft, nontender. Bowel sounds present. No organomegaly, masses or bruits. Extremities: No edema, clubbing or cyanosis. Neurologic: Nonfocal. IMPRESSION: 1. Chronic kidney disease 5D. His next planned dialysis treatment is tomorrow. Euvolemic. Electrolytes, acid base are acceptable. He does have modest hypokalemia, but he will be receiving blood today. 2. Anemia. Presumably secondary to acute blood loss. As he has ongoing melena. GI has been consulted. 2 units of packed red blood cells. 3. Hypertension. No intervention at this time. Continue home medications. cc: Quintin Hernandez MD
--- NOTE | 2018-09-08 17:50 | GASTROENTEROLOGY CONSULTATION ---
DATE: 09/08/2018 REASON FOR CONSULTATION: Melena, acute on chronic anemia. HISTORY OF PRESENT ILLNESS: Mr. Delgado is a 72-year-old gentleman with a past medical history of hypertension, COPD, peripheral vascular disease, BPH, anemia of chronic disease, end-stage renal disease on dialysis Tuesdays, , and Saturdays, remote history of partial colon resection in the setting of unresectable colon polyp, who was admitted today with progressive dyspnea on exertion and anemia with a hemoglobin of 6.1. The patient was previously here in May of this year for similar presentation. At that time, the patient was not complaining of rectal bleeding and outpatient EGD and colonoscopy were recommended. He was discharged to rehab where he had developed melenic stools and admitted to [facility]. There he had an EGD that showed 2 spots in his upper intestines that were treated. He was discharged in June. He reports continuing to have black stools at least once daily since his discharge in June and has required blood transfusion 2 weeks ago. He says his dyspnea is worse on exertion and aggravated by walking across the room. He denies any NSAIDs or blood thinners. He denies any history of H pylori infection. He is receiving IV iron during hemodialysis per Renal. No bright red blood per rectum, lightheadedness, hematemesis, nausea, vomiting, or abdominal pain. On presentation, his vital signs were or normal. PAST MEDICAL HISTORY: As per history of present illness. PAST SURGICAL HISTORY: 1. Left knee replacement. 2. Right hemodialysis catheter placement. 3. AAA repair. 4. Partial colon resection. 5. Ostomy with ostomy takedown. 6. Peritoneal dialysis catheter. 7. Appendectomy. 8. Tonsillectomy. 9. Prior right thoracentesis for a pleural effusion. FAMILY HISTORY: Mother of congestive heart failure. Father of prostate cancer. SOCIAL HISTORY: Prior smoking history, 1/2 pack per day smoker previously for 20 years. No alcohol or drug use. 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 ALLERGIES: Demerol. HOME MEDICATIONS: 1. Nexium once daily. 2. Breo Ellipta inhaler. 3. Atrovent nebulizer. 4. Remeron. 5. Tylenol. 6. DuoNeb. REVIEW OF SYSTEMS: As per history of present illness, otherwise 12 point review of systems was negative. PHYSICAL EXAMINATION: Vital Signs: Temperature 97.6 degrees, heart rate 82, respiratory rate 16, blood pressure 186/60, O2 saturation 99% on room air. General: The patient is awake, alert, oriented, in no acute distress. HEENT: Sclerae anicteric. Moist mucous membranes. Extraocular motor intact. Neck: Supple. No JVD. Cardiac: Regular rate and rhythm. No murmurs. Lungs: Clear to auscultation bilaterally. No wheezing. Abdomen: Soft, nontender, nondistended. Normoactive bowel sounds. No rebound or guarding. Extremities: No clubbing, cyanosis, or edema. Neurologic: Nonfocal. Skin: Warm and well perfused. LABORATORY DATA: White count of 6.5, hemoglobin 6.6. The patient has been transfused 1 unit of packed red blood cells since then, platelets of 376,000. INR 0.93. Sodium 140, potassium 3.1, chloride 101, bicarb 28, BUN 17, creatinine of 4.0, glucose 116. Iron 34, TIBC 136, ferritin is pending. Total bilirubin 0.4, AST 13, ALT less than 5, alkaline phosphatase 104, total protein 6.5, albumin 3.0. Hemoccult was positive. CT abdomen and pelvis without contrast showed bilateral pleural effusions, gallstones without acute cholecystitis. No other significant abnormalities. ASSESSMENT AND PLAN: Mr. Milton Delgado is a 72-year-old gentleman with history of end-stage renal disease on hemodialysis, acute on chronic kidney disease, who presents with recurrent gastrointestinal bleed with melena and anemia. The patient had a recent esophagogastroduodenoscopy back in June or June that showed 2 lesions in the upper intestines, likely small bowel, that were treated. He continues to have melena despite previous treatment and has required transfusions as an outpatient since being discharged. He has noticed some associated dyspnea on exertion. No other symptoms. He currently is NPO. He is currently on IV Protonix b.i.d., Carafate q.6 hours, Zofran as needed, and was on a proton pump inhibitor drip, which I am now discontinuing. 1. Upper gastrointestinal bleed. NPO for esophagogastroduodenoscopy today. Further recommendations post endoscopic evaluation. 2. Anemia acute on chronic. The patient receives iron with hemodialysis. Checking folate and B12, ferritin is pending. 3. Shortness of breath from above. 4. End-stage renal disease. Continue hemodialysis as per Renal. 5. Deep venous thrombosis prophylaxis. Sequential compression devices bilaterally. Avoid heparin and Lovenox. We will continue to trend his hemoglobin and hematocrit every 12 to 24 hours. Transfuse as needed to maintain a hemoglobin of 7 to 8. Maintain 2 large-bore peripheral IVs. He is receiving pain inhalers for his chronic obstructive pulmonary disease. Thank you for this consult. We will follow with you. Please call with any questions or concerns.
[2018-09-08] MEDS ORDERED: LABETALOL IV PRN (18:33)
--- NOTE | 2018-09-08 18:34 | OPERATIVE NOTE ---
PROCEDURE DATE: PROVIDER: Azam Velarde MD INDICATIONS: Melena, gastrointestinal bleed, anemia. MEDICATIONS: Monitored anesthesia care. DESCRIPTION OF PROCEDURE: Prior to procedure, history and physical was performed, and the patient's medication allergies were reviewed. The patient's tolerance to previous anesthesia was also reviewed. The risks and benefits of the procedure, sedation options, risks were discussed with the patient. All questions were answered. Informed consent was obtained. After reviewing the risks and benefits, the patient was deemed in satisfactory condition and underwent the procedure. The endoscope was passed under direct visualization. Throughout the procedure, the patient's blood pressure, pulse and oxygen saturation were monitored continuously. The scope was introduced through the mouth and advanced to the second part of the duodenum. The upper GI endoscopy was accomplished without difficulty. The patient tolerated the procedure well. COMPLICATIONS: No immediate complications. ESTIMATED BLOOD LOSS: Minimal. FINDINGS: A small hiatal hernia was found. The Z-line was regular at 41 cm from the incisors. Within the stomach, there was mild gastric antral vascular ectasias, nonbleeding. The duodenal bulb and second portion were normal. Retroflexion in the stomach was otherwise unrevealing. IMPRESSION: Small hiatal hernia, gastric antral vascular ectasia. RECOMMENDATIONS: Start clear liquid diet. Continue PPI. We will plan for diagnostic colonoscopy on Tuesday. The patient can start full liquids tomorrow and resume a clear liquid diet on Tuesday. We will prep him with 238 g of MiraLAX and 64 ounces of Gatorade. He will need to take four 5 mg bisacodyl tablets around 4 p.m. and then start his prep about a half hour later. NPO after midnight on Tuesday night. The patient will have a colonoscopy on Tuesday with Dr. Hughes. We will follow with you. Please call with any questions or concerns.
[2018-09-08 20:31] LABS: HEMATOCRIT 25.8 % (42.0-52.0); HEMOGLOBIN 8.5 g/dL (14.0-18.0)
[2018-09-08] MEDS: PULMICORT INH SCH (21:45)
[2018-09-09 01:44] LABS: HEMATOCRIT 25.6 % (42.0-52.0); HEMOGLOBIN 8.3 g/dL (14.0-18.0)
[2018-09-09] MEDS: DUONEB (A & A) INH SCH ×3 (05:32→15:48)
[2018-09-09] MEDS: CARAFATE LIQUID PO SCH ×5 (05:55→23:46)
[2018-09-09 06:50] LABS: BASO# 0.02 X1000 (0.0-0.2); BASO% 0.3 % (0.0-0.8); EOS# 0.56 X1000 (0.0-0.7); EOS% 8.9 % (0.0-10.0); HEMOGLOBIN 8.4 g/dL (14.0-18.0); IMM GRAN# 0.03 X1000 (0.0-0.04); IMM GRAN% 0.5 % (0.0-0.5); LYMPH# 1.22 X1000 (1.2-3.4); LYMPH% 19.3 % (20.5-51.1); MCH 30.7 PG (27-31); MCHC 32.3 g/dL (33-37); MCV 94.9 FL (81-99); MONO# 0.72 X1000 (0.11-0.59); MONO% 11.4 % (1.7-9.3); MPV 10.1 FL (7.4-10.4); NEUT# 3.76 X1000 (1.4-6.5); NEUT% 59.6 % (42.2-75.2); PLT 329 X1000 (130-400); RBC 2.74 XMIL (4.7-6.1); RDW 18.6 % (11.5-14.5); WBC 6.31 X1000 (4.8-10.8)
[2018-09-09 06:57] LABS: INR 0.99; PROTIME 13.9 Seconds (11.0-16.0)
[2018-09-09 06:58] LABS: PTT 36.4 Seconds (22.3-41.8)
[2018-09-09 07:33] LABS: AGAP 12; ALB/GLOB RATIO 0.8; ALBUMIN 2.6 g/dL (3.5-5.0); ALKALINE PHOSPHATASE 97 U/L (32-122); BUN 23 mg/dL (8-22); CALCIUM 8.2 mg/dL (8.8-10.2); CHLORIDE 104 mmol/L (98-107); COSMO 284; ESTIMATED GFR 11; GLUCOSE 80 mg/dL (70-104); GOT 11 U/L (10-34); GPT < 5 U/L (10-44); MAGNESIUM 1.9 mg/dL (1.5-2.7); POTASSIUM 3.6 mmol/L (3.5-5.1); SODIUM 141 mmol/L (136-145); TCO2 25 mmol/L (25-35); TOTAL PROTEIN 5.8 g/dL (6.3-8.3)
[2018-09-09] MEDS ORDERED: NS 2,000 ML MISC PRN (10:05)
[2018-09-09] MEDS: PULMICORT INH SCH (10:48)
[2018-09-09 14:05] LABS: HEMATOCRIT 27.5 % (42.0-52.0); HEMOGLOBIN 8.8 g/dL (14.0-18.0)
--- NOTE | 2018-09-09 18:23 | PROGRESS NOTE ---
DATE: 09/09/2018 SUBJECTIVE: Today Mr. Delgado referred to be doing fairly okay. He was just very insistent that he wanted something to eat. Unfortunately, he is pending a colonoscopy, and GI wants to keep his tract as clean as possible for the procedure. OBJECTIVE: Vital Signs: Blood pressure is 172/64, pulse 69, respirations 22, temperature 98.0. General: Mr. Delgado is a 72-year-old gentleman. He is in bed in no distress. HEENT: Mucosa is pink and moist. Anicteric. Acyanotic. Neck: Supple. Chest: Clear to auscultation. No crepitations. No rhonchi. Cardiovascular: Regular rate and rhythm. Abdomen: Soft, distended but nontender. Extremities: No pedal edema. MANAGER SOFTWARE DEVELOPMENT: The patient is awake, alert, and oriented. There is a tunneled catheter in the right anterior chest wall. LABORATORY DATA: Hemoglobin this afternoon was 8.8. Chemistry early this morning was normal except for elevated creatinine, which is consistent with his renal failure. DIAGNOSTIC STUDIES: A CT scan of the abdomen which was done yesterday showed a few small calcified stones in the gallbladder. No pericholecystic inflammation. ASSESSMENT/PLAN: 1. Symptomatic anemia secondary to gastrointestinal bleed. 2. Gastrointestinal bleed of unclear source. Esophagogastroduodenoscopy was not revealing. The patient is pending is pending a colonoscopy on Tuesday. 3. Endstage renal disease, on hemodialysis. 4. Folate deficiency. We will continue to replace this. 5. In general, Mr. Delgado is fairly stable. Had an EGD which was not revealing for the cause of his gastrointestinal bleed. There is a plan for a colonoscopy on Tuesday. We are going to continue the clear liquids until Tuesday night and then keep him n.p.o. Continue with the bowel prep and hopefully get the colonoscopy done on Tuesday. cc: Scout Mccauley MD
[2018-09-09 19:44] LABS: HEMATOCRIT 28.2 % (42.0-52.0); HEMOGLOBIN 9.3 g/dL (14.0-18.0)
--- NOTE | 2018-09-09 19:58 | NEPHROLOGY PROGRESS NOTE ---
DATE: 09/09/2018 SUBJECTIVE: He has not been out of bed much today. He states he slid off the toilet on to the floor today, but no injury. OBJECTIVE: Vital Signs: Blood pressure 172/64, heart rate 69, respirations 22, afebrile. General: No acute distress. Skin: Warm and dry. Eyes: Conjunctivae are pink. Neck: Neck veins are not distended. Heart: Regular with systolic murmur at the right upper sternal border. Lungs: Clear. Abdomen: Soft, nontender. Bowel sounds present. Extremities: No edema, clubbing or cyanosis. IMPRESSION: 1. Chronic kidney disease 5D. He had his dialysis today without difficulty. 2. Gastrointestinal bleeding. Hemoglobin is stable. Plan for colonoscopy on Tuesday. 3. Murmur. Last echo performed 05/18/2018 with aortic sclerosis, but no stenosis. cc: Quintin Hernandez MD
[2018-09-10 02:02] LABS: HEMATOCRIT 27.3 % (42.0-52.0); HEMOGLOBIN 8.9 g/dL (14.0-18.0)
[2018-09-10] MEDS: CARAFATE LIQUID PO SCH ×4 (02:52→20:11)
[2018-09-10] MEDS: DUONEB (A & A) INH SCH ×4 (03:45→22:40)
[2018-09-10] MEDS: PULMICORT INH SCH ×3 (03:45→22:40)
[2018-09-10 06:42] LABS: BASO# 0.01 X1000 (0.0-0.2); BASO% 0.2 % (0.0-0.8); EOS# 0.66 X1000 (0.0-0.7); EOS% 11.1 % (0.0-10.0); HEMATOCRIT 27.3 % (42.0-52.0); HEMOGLOBIN 8.8 g/dL (14.0-18.0); IMM GRAN# 0.02 X1000 (0.0-0.04); IMM GRAN% 0.3 % (0.0-0.5); LYMPH# 0.98 X1000 (1.2-3.4); LYMPH% 16.4 % (20.5-51.1); MCH 30.7 PG (27-31); MCHC 32.2 g/dL (33-37); MCV 95.1 FL (81-99); MONO# 0.62 X1000 (0.11-0.59); MONO% 10.4 % (1.7-9.3); MPV 9.8 FL (7.4-10.4); NEUT# 3.68 X1000 (1.4-6.5); NEUT% 61.6 % (42.2-75.2); PLT 333 X1000 (130-400); RBC 2.87 XMIL (4.7-6.1); RDW 17.7 % (11.5-14.5); WBC 5.97 X1000 (4.8-10.8)
[2018-09-10 07:17] LABS: ALBUMIN 2.6 g/dL (3.5-5.0); CALCIUM 8.4 mg/dL (8.8-10.2); CREATININE 3.6 mg/dL (0.7-1.2); PHOSPHORUS 3.7 mg/dL (2.7-4.5); POTASSIUM 3.4 mmol/L (3.5-5.1)
--- NOTE | 2018-09-10 13:59 | PROGRESS NOTE ---
DATE: 09/10/2018 SUBJECTIVE: Patient resting comfortably in bed. OBJECTIVE: Vital signs: Temperature 98.4 degrees, pulse 81, respiratory rate 17, blood pressure 184/60, oxygen 99%. HEENT: Atraumatic, normocephalic. Cardiovascular: S1, S2. Respiratory system: Has evidence of good air entry bilaterally. Abdomen: Soft, nontender. No masses felt. Extremities: No evidence of edema. Central nervous system: No obvious focal deficits noted. LABORATORIES: WBC is 5.97, hematocrit 27.3 Sodium is 136, potassium 3.5, chloride 99, bicarb 26, BUN is 13, creatinine is 3.6. ASSESSMENT AND PLAN: 1. Gastrointestinal bleed. Maintain patient on proton pump inhibitor. Colonoscopy planned for tomorrow. 2. Anemia. Follow up on hemoglobin, hematocrit. Transfuse PRBCs as needed. 3. End-stage renal disease. On hemodialysis. Nephrology following. 4. Folate deficiency. Continue replacement. 5. Chronic obstructive pulmonary disease. Continue nebulized bronchodilators as needed. 6. Hypertension. Continue current antibiotic regimen. 7. Benign prostatic hypertrophy. Aware. 8. Anxiety disorder. Use anxiolytics if needed. cc: Deondre Hutson MD MTDD
[2018-09-10] MEDS: NORVASC PO SCH (16:06)
[2018-09-10] MEDS ORDERED: MIRALAX PO ONE (16:28)
[2018-09-10] MEDS ORDERED: DULCOLAX PO ONE (16:29)
[2018-09-11] MEDS: CARAFATE LIQUID PO SCH ×4 (01:35→21:46)
[2018-09-11] MEDS: DUONEB (A & A) INH SCH ×4 (03:53→21:53)
[2018-09-11 06:55] LABS: BASO# 0.01 X1000 (0.0-0.2); BASO% 0.2 % (0.0-0.8); EOS# 0.45 X1000 (0.0-0.7); EOS% 8.1 % (0.0-10.0); HEMATOCRIT 27.2 % (42.0-52.0); HEMOGLOBIN 8.8 g/dL (14.0-18.0); LYMPH# 1.16 X1000 (1.2-3.4); LYMPH% 20.8 % (20.5-51.1); MCH 31.7 PG (27-31); MCHC 32.4 g/dL (33-37); MCV 97.8 FL (81-99); MONO% 16.1 % (1.7-9.3); MPV 10.2 FL (7.4-10.4); NEUT# 3.06 X1000 (1.4-6.5); NEUT% 54.8 % (42.2-75.2); PLT 319 X1000 (130-400); RBC 2.78 XMIL (4.7-6.1); RDW 17.5 % (11.5-14.5); WBC 5.58 X1000 (4.8-10.8)
[2018-09-11 07:11] LABS: ALBUMIN 2.7 g/dL (3.5-5.0); CALCIUM 8.2 mg/dL (8.8-10.2); CREATININE 4.8 mg/dL (0.7-1.2); PHOSPHORUS 4.6 mg/dL (2.7-4.5)
[2018-09-11] MEDS ORDERED: XYLOCAINE-MPF 2% ONE (08:23)
[2018-09-11] MEDS ORDERED: DIPRIVAN 1% ONE ×3 (08:24→09:47)
--- NOTE | 2018-09-11 09:30 | OPERATIVE NOTE ---
PROCEDURE DATE: 09/11/2018 ATTENDING PHYSICIAN: Satish Hassan MD PRIMARY CARE DOCTOR: Azam Rico MD TITLE OF PROCEDURE: Ileo-colonoscopy. PREOPERATIVE DIAGNOSES: 1. Dark stools. 2. Anemia. He has required 2 units of blood transfusion. 3. EGD done by Dr. Velarde on 09/08/2012 showed evidence of gastric arteriovenous malformation. 4. Previous history of colon polyps about 15 years ago. He required 3 colonoscopies at that time and required 10 inches of colon taken out about 15 years ago. POSTOPERATIVE DIAGNOSES: 1. Normal terminal ileum, intermittent stool throughout the colon which was lavaged. 2. Evidence of internal hemorrhoids grade 2. 3. Evidence of colon polyps in the colon, which were not resected as the patient has ongoing gastrointestinal blood loss. We will remove it internal colonoscopy 1 to 2 weeks with 2 day prep. 4. No evidence of any active bleeding, fresh or old blood noted in the entire colonoscopy. ESTIMATED BLOOD LOSS: None. COMPLICATIONS: None. ANESTHESIA: Monitored anesthesia care. SPECIMENS: None. DETAILS OF OPERATION: After informed consent, the patient explained the risks, benefits, indications, and alternatives to the procedure, the patient was prepared for colonoscopy. The risks of the procedure, including infection, bleeding, pain, trauma to the surrounding structures, perforation, , were explained to the patient, among others and he acknowledged and agreed to proceed. The patient was brought to the OR. He was turned in a left lateral position. Rectal exam was performed, which was normal. No masses felt. No blood on the examining finger. The colonoscope was introduced and traversed all the way up towards the terminal ileum. Terminal ileum was normal. The bowel prep was fair. There was stool throughout the colon, which was lavaged. Lesion less than 5 mm could have been missed. There was evidence of a few polyps in the colon which were not resected as the patient has ongoing GI blood loss. We will remove them in 1 to 2 weeks with 2-day prep. There was no evidence of any active bleeding, fresh or old blood in the entire colonoscopy. There was evidence of internal hemorrhoids grade 2 on retroflexion. There was no evidence of any colitis. The air was removed and scope withdrawn. The patient tolerated the procedure well and was subsequently monitored in the OR in stable condition. RECOMMENDATIONS: 1. Patient will be on Iron C b.i.d. for 3 months. We will start patient on Centrum Silver once daily for 3 months. We will keep the patient on Protonix 40 mg once daily. 2. Patient had gastric AVM. We may have to do a 2nd look EGD and colonoscopy in 1 to 2 weeks. At that time, we will be able to remove the polyp and cauterize AVMs. 3. If EGD and colonoscopy second look is negative, then he may need a video capsule endoscopy as an outpatient. 4. We will start him on full liquid diet, advance as tolerated. 5. He will need MiraLAX 17g once daily for chronic constipation. 6. Further recommendations pending hospital course. Discussed the above with the patient and family and all questions were answered. Please call us with any further questions. cc: MD Azam Pryor MD MTDD
[2018-09-11] MEDS: PULMICORT INH SCH ×2 (09:42→21:53)
[2018-09-11] MEDS: NORVASC PO SCH (10:24)
[2018-09-11] MEDS: PROTONIX IV SCH ×2 (10:25→21:46)
[2018-09-11] MEDS ORDERED: KLOR-CON PO ONE (11:30)
--- NOTE | 2018-09-11 14:30 | NEPHROLOGY PROGRESS NOTE ---
DATE: 09/11/2018 TIME SEEN: 0655 SUBJECTIVE: Mr. Delgado is resting quietly in bed states that he has been up most of the night with his bowel prep. States that he is very tired. OBJECTIVE: His most recent vital signs temperature 97.9, blood pressure 178/58, heart rate 69, respirations 18, he is on room air, last recorded saturation 93%. He has had 440 in, 0 recorded out. LABS: His most recent labs indicate a sodium of 135, potassium 3, chloride 97, CO2 26, BUN 19, creatinine 4.8, glucose is 87, his anion gap is 12, calcium 8.2, phosphorus 4.6, albumin is 2.7. White count 5.58, hemoglobin 8.8, hematocrit 27.2 with a platelet count of 319,000. PHYSICAL EXAMINATION: General: This is a 72-year-old white male resting quietly in bed. He appears chronically ill no acute distress. Skin: Warm and dry. HEENT: Normocephalic, atraumatic. Conjunctiva is pale pink. He has ERIC. Mucous membranes are dry. Neck: Supple. Trachea midline. No evidence of JVD. Cardiovascular: Regular rate and rhythm. He has a systolic murmur. No gallop appreciated. Lungs: Clear to auscultation bilaterally. Equal excursion. Abdomen: Soft, nontender. Positive bowel sounds. PD catheter remains dry and intact to the left lower quadrant. Genitourinary: Not inspected. Minimal void with dialysis assist. Extremities: Have no edema. No clubbing or cyanosis. Neurological: He is alert and oriented x3. ASSESSMENT AND PLAN: 1. Chronic kidney disease stage 5D. The patient is to undergo hemodialysis per his routine treatment in the a.m. He currently has peritoneal dialysis on hold. 2. Electrolytes and acid-base balance. Patient has hypokalemia with a potassium of 3. We will have supplement replacement if not ordered. 3. Gastrointestinal bleeding. Dr. Hughes planned for colonoscopy this a.m. Hemoglobin stable at 8.8. Colonoscopy negative. Will need pill endoscopy as an outpatient. Will ask surgery to remove the PD catheter. rg Like to thank you for allowing us to follow with this patient. Dictated by RASHMI Brandon for Quintin Hernandez MD Face to face encounter, data reviewed, discussed with Susie Cruz on 09/11/18. I agree with the above assessment and plan of care. cc: RASHMI Brandon MD MTDD
--- NOTE | 2018-09-11 15:05 | PROGRESS NOTE ---
DATE: 09/11/2018 SUBJECTIVE: The patient is resting comfortably in bed. He is status post colonoscopy. OBJECTIVE: Vital Signs: Temperature 97.9 degrees, pulse 69, respirations 18, blood pressure is 178/58, oxygen saturation is 93%. HEENT: Atraumatic, normocephalic. Cardiovascular System: S1 and S2. Respiratory System: Has evidence of good air entry bilaterally. Abdomen: Soft, nontender. No masses felt. Extremities: No evidence of edema. Central Nervous System: No obvious focal deficit noted. Labs: WBC is 5.5, hematocrit is 27.2, with a platelet count of 319,000. Sodium is 134, potassium 3.0, chloride 97, bicarb 26, BUN is 19, creatinine is 4.8. ASSESSMENT AND PLAN: 1. Gastrointestinal bleed. The patient is status post colonoscopy. The patient was noted to have some colonic polyps which were not removed and the plan is to remove those polyps at a future date. In the meantime, we will maintain patient on a proton pump inhibitor and transfuse packed red blood cells if necessary. 2. End-stage renal disease. Continue hemodialysis as recommended by nephrology. 3. Folate deficiency. Continue replacement. 4. Chronic obstructive pulmonary disease. Continue nebulized bronchodilators as needed. 5. Hypertension. Continue current antihypertensive regimen. 6. Benign prostatic hypertrophy. Aware. 7. Anxiety disorder. Use anxiolytic if needed. cc: Deondre Hutson MD
[2018-09-11] MEDS: ICAR-C PO SCH (21:50)
[2018-09-12] MEDS: CARAFATE LIQUID PO SCH ×2 (01:24→13:44)
[2018-09-12] MEDS: DUONEB (A & A) INH SCH ×2 (03:55→07:37)
[2018-09-12] MEDS ORDERED: NS 2,000 ML MISC PRN (05:48)
[2018-09-12] MEDS ORDERED: TIGHT: 0.2 ML/HR FOR DIALYSIS MISC PRN (05:48)
[2018-09-12] MEDS ORDERED: HEPARIN IV PRN (05:48)
[2018-09-12 07:23] LABS: ALBUMIN 2.7 g/dL (3.5-5.0); CALCIUM 8.2 mg/dL (8.8-10.2); PHOSPHORUS 4.8 mg/dL (2.7-4.5); POTASSIUM 3.3 mmol/L (3.5-5.1)
[2018-09-12 07:28] LABS: CREATININE 6.1 mg/dL (0.7-1.2)
[2018-09-12] MEDS: PULMICORT INH SCH (07:37)
[2018-09-12] MEDS ORDERED: CENTRUM SILVER PO SCH (09:00)
[2018-09-12] MEDS: MIRALAX PO SCH ×2 (13:45→13:48)
[2018-09-12] MEDS: ICAR-C PO SCH (13:45)
[2018-09-12] MEDS: NORVASC PO SCH (13:45)
[2018-09-12] MEDS: PROTONIX IV SCH ×2 (13:46→13:49)
[2018-09-12 14:35] VITALS: BP 140/58
[2018-09-12] MEDS ORDERED: KLOR-CON PO ONE (14:36)
--- NOTE | 2018-09-12 17:54 | DISCHARGE SUMMARY ---
ADMISSION DATE: 09/08/2018 DISCHARGE DATE: 09/12/2018 DISPOSITION: Home. FOLLOWUP: 1. Dr. Hernandez. 2. Dr. Hughes. CONSULTATIONS DURING THIS ADMISSION: 1. Nephrology was consulted. Patient was seen by Dr. Hernandez. 2. GI was consulted. Patient was seen by Dr. Hughes. INVASIVE PROCEDURES DONE DURING THIS ADMISSION: 1. EGD was done by Dr. Velarde which only showed small hiatal hernia, gastric antral vascular ectasia. 2. Colonoscopy was done by Dr. Hughes which showed evidence of internal hemorrhoids grade 2, evidence of colon polyps with no evidence of acute bleed. ADMISSION DIAGNOSES: 1. Upper gastrointestinal bleed. 2. Iron deficiency. 3. Chronic blood loss. 4. Endstage renal disease. 5. Bilateral pleural effusions. DIAGNOSES AT THE TIME OF DISCHARGE: 1. Symptomatic anemia on presentation. The patient got 2 units of PRBC. Hemoglobin and hematocrit stabilized. 2. Gastrointestinal bleed of unclear source. EGD and colonoscopy were unremarkable. 3. Endstage renal disease, on hemodialysis. 4. Folate deficiency. The patient was on replacement therapy. 5. History of chronic obstructive pulmonary disease, not in exacerbation. 6. Benign prostatic hypertrophy. DISCHARGE MEDICATIONS: 1. Nexium 40 mg daily. 2. Mirtazapine 30 mg at bedtime. 3. Iron 1 tablet b.i.d. 4. MiraLAX 17 g p.o. daily. 5. Multivitamin 1 tab daily. 6. Amlodipine 10 mg p.o. daily. PRESENTING COMPLAINT: Shortness of breath, black stools. HISTORY OF PRESENTING COMPLAINT: Mr. Delgado is a 72-year-old gentleman who has end- stage renal disease, on scheduled hemodialysis Tuesdays, and Saturdays, came to the emergency department because of weakness, shortness of breath, was found to have a hemoglobin of 6.1 on exams. Hemoccult was also positive. He was subsequently admitted for medical care. HOSPITAL COURSE: Mr. Delgado was admitted, was given 2 units of PRBC transfusion. GI was consulted as well as Nephrology. He continued having his scheduled dialysis as per Nephrology recommendations. The patient also underwent EGD and colonoscopy, both results are in the chart, but none of which revealed any active bleeding to explain the GI bleed and the hemoglobin of 6 on presentation. Mr. Delgado did not have any more evidence of GI bleed and his hemoglobin and hematocrit stabilized around 8.8 for 2 days in a row. He will follow up with GI for further investigation, including possibly a video capsule endoscopy. Mr. Delgado will also follow up with Dr. Ruiz for his scheduled dialysis. During the hospital course, PD cath was planned however, Nephrology prefers it to be done outpatient. He is clinically stable. No more symptomatic and hemoglobin and hematocrit is stable. Does not have any more evidence of GI bleed, so he is being discharged in stable condition. PHYSICAL EXAMINATION: Vital Signs: Today his vitals: Blood pressure is 140/58, pulse is 94, respirations 16, temperature is 97.8. The patient was saturating 98%. Exam: Physical exam is unremarkable. NOTE: All the discharge instructions have been discussed with him, who is at the bedside at the time of the encounter. TIME SPENT: Time spent for discharge is 33 minutes. cc: MD Quintin Castellanos MD Manish Arora, MD MTDD
--- NOTE | 2018-09-12 19:39 | NEPHROLOGY PROGRESS NOTE ---
DATE: 09/12/2018 TIME SEEN: 0650 hours. SUBJECTIVE: Mr. Delgado is resting quietly. He states that he is disappointed that he is not going to be able to get his PD catheter out today per Dr. Brito or that it was not removed yesterday during his EGD. During this period of time we have indicated that this is planned for removal on an outpatient basis along with possible hemorrhoidectomy. Followed by Dr. Brito and GI at this time. He is stable for discharge. The patient does deny any pain or discomfort. OBJECTIVE: MOST RECENT VITAL SIGNS: Temperature is 98.6 degrees, blood pressure 149/55, heart rate 87, respirations 20. He is on room air. Last recorded saturation 96%. He has had 3121 in, 900 out to void. LABORATORY DATA: Sodium 140, potassium 3.3, chloride 101, CO2 of 24, BUN 23, creatinine 6.1, glucose 89, anion gap of 15, calcium 8.2, phosphorus 4.8, albumin 2.7. Hemoglobin 8.8. PHYSICAL EXAMINATION: General: This is a 72-year-old white male, resting quietly in bed. He appears chronically ill. He is in no acute distress. Skin: Warm and dry. HEENT: Normocephalic, atraumatic. Conjunctivae pale pink. He has ERIC. Mucous membranes are dry. Neck: Supple. Trachea midline. No evidence of JVD. Cardiovascular: Regular rate and rhythm. Has a systolic murmur that is present. Lungs: Clear to auscultation bilateral. Equal excursion on room air. Abdomen: Soft, nontender. Positive bowel sounds. PD catheter remains dry and intact to the left lower quadrant. Genitourinary: Not inspected. The patient is voiding with dialysis assist. Extremities: No edema. No clubbing or cyanosis. Neurological: Alert and oriented x3. ASSESSMENT AND PLAN: 1. Chronic kidney disease stage 5D. The patient is due for his routine dialysis treatment in the a.m. per hemodialysis. 2. Electrolytes and acid-base balance. The patient remains slightly hypokalemic. The patient was given potassium supplement this a.m. x1. 3. Acid-base balance. This is stable. 4. Anemia. This remains close to target after transfusion during the hospital stay. Followed by Gastroenterology. I would like to thank you for allowing us to follow with this patient. Dictated by RASHMI Brandon for Quintin Hernandez MD cc: RASHMI Brandon MD
--- NOTE | 2018-09-12 23:04 | PROVIDER PROGRESS NOTE ---
Progress Note SUBJECTIVE: No acute overnight events. Afebrile. No N/V, CP, SOB, abdominal pain, rectal bleeding, or melena. Tolerating diet. No complaints OBJECTIVE: Last Vital Signs Temp 97.8 F 09/12/18 14:30 Pulse 94 H 09/12/18 14:30 Resp 16 09/12/18 14:30 BP 140/58 09/12/18 14:30 Pulse Ox 98 09/12/18 14:30 Height 6 ft 2 in Weight 212 lb GEN: awake, alert, NAD HEENT: aniteric, MMM NECK: supple, no JVD CV: RRR, no murmurs PULM: CTAB, no wheezing ABD: soft NT/ND, NABS, peritoneal catheter in place EXT: no cce NEURO: nonfocal LABS: 09/12/18 06:10 Sodium 140 Potassium 3.3 L Chloride 101 Carbon Dioxide 24 L BUN 23 H Creatinine 6.1 H Glucose 89 Albumin 2.7 L Colonoscopy 09/11 POSTOPERATIVE DIAGNOSES: 1. Normal terminal ileum, intermittent stool throughout the colon which was lavaged. 2. Evidence of internal hemorrhoids grade 2. 3. Evidence of colon polyps in the colon, which were not resected as the patient has ongoing gastrointestinal blood loss. We will remove it internal colonoscopy 1 to 2 weeks with 2 day prep. 4. No evidence of any active bleeding, fresh or old blood noted in the entire colonoscopy. ASSESSMENT AND PLAN: Mr. Milton Delgado is a 72-year-old gentleman with history of end-stage renal disease on hemodialysis, acute on chronic kidney disease, who presents with recurrent gastrointestinal bleed with melena and anemia. EGD showed minimal GAVE on 09/08 and colonoscopy yesterday was notable for colon polyps and hemorrhoids. Hgb has remained stable during hospitalization without overt GI bleeding. He is on PPI. #GI bleeding: occult blood loss; will likely need capsule endoscopy as outpatient; continue PPI once daily #AOCD: trend H/H periodically as outpatient and transfuse as needed #Colon polyps: will need repeat colonoscopy to be schedule as outpatient for polypectomy #GAVE: minimal; could contribute to anemia; however, it is unlikely that this would be the explanation given the rapid worsening of his anemia #ESRD: HD per renal
== END 2018-09-12 14:41 | disposition home health service (06) | DRG 377 ==
LOC: P.ED 07:51 → SUATTDRO 09:57 → 4N 09:57
PROVIDERS: ATTEND Internal Medicine
CPT/HCPCS: 36430; 74176; 80053; 80069; 82270; 82607; 82728; 82746; 83540; 83550; 83735; 85014; 85018; 85025; 85610; 85730; 86850; 86900; 86901; 86920; 94640; 94761; 94799; 96365; 99285; A9270; C9113; J1644; J2370; J2405; J7030; P9016; S0164